=== PATIENT | female | born 1990 | race Caucasian/White ===

== ENCOUNTER 2016-07-03 13:59 | Outpatient (RCR) | payer MEDICAID ==
--- OUTSIDE RECORDS SUMMARY | 2016-04-05 14:08 | XMS REPORT | Continuity of Care Document ---
Author Author Interface Organization Interface Address Unknown Phone Unavailable Problems Problem Status Onset Date Classification Date Reported Comments Source Patient currently (finding) Active 06/21/2013 Problem 03/27/2014 [facility] Medications Medication Details Route Status Patient Instructions Ordering Provider Order Date Source albuterol HFA 90 mcg/inh inhalation aerosol Active [facility] Advair Diskus 250 mcg-50 mcg inhalation powder 1 puff , Inhaled, BID Active [facility] Flagyl 500 mg oral tablet 500 mg=1 tablet, PO, BID, x 7 day(s), # 14 tablet, Refill(s) 0, Pharmacy: [facility] #[id number] [facility] ferrous sulfate 325 mg (65 mg elemental iron) oral delayed release tablet 65 mg=1 tablet, PO, qDay, 325 mg/1 tablet=65 mg elemental iron., # 30 tablet, Refill(s) 0, Pharmacy: [facility] #[id number] </br>325 mg/1 tablet=65 mg elemental iron. Active [facility] oxyCODONE-acetaminophen 5 mg -325mg oral tablet =1 tablet, PO, q4hr, PRN PRN Pain, Moderate, # 24 tablet, Refill(s) 0, Print [facility] ibuprofen 800 mg oral tablet 800 mg=1 tablet, PO, q8hr , PRN Pain not responding to APAP, # 30 tablet, Refill(s) 2 [facility] Tdap 03/25/14 18:00:00 CDT, Send Med Request, Routine , 0.5 mL, IM, Injection, Unscheduled, 1 dose(s)Refrigerate. Shake well. For IM use. Boostrix is Tetanus/Diptheria/Acellular Pertussis. Patient Charge. Manufacturer MED ID: [id number] Inactive Smooth Tomas [facility] Allergies, Adverse Reactions, Alerts Substance Category Reaction Severity Reaction type Status Date Reported Comments Source acetaminophen-propoxyphene drug allergy Allergy Active [facility] ciprofloxacin drug allergy Stop Substance: Moderate Allergy Active [facility] Immunizations Immunization Date Given Site Status Last Updated Comments Source tetanus/diph/pertussis(a), adult (Tdap) 03/26/2014 completed [facility] Results Order Name Results Value Reference Range Date Interpretation Comments Source DIFA Abs Eos 0.01 x10(3) mcL 0.00 - 0.50 03/23/2014 [facility] DIFA Abs Baso 0.01 x10(3) mcL 0.00 - 0.10 03/23/2014 [facility] DIFA Differential Method Auto Diff 03/23/2014 [facility] RPR RPR Non-Reactive 03/25/2014 [facility] HGB 10.1 gm/dL 12.0 - 16.0 03/25/2014 LOW This test result is at significant variance with the most recent result. This may be due to a significant clinical change or pre-analytical error. If the clinical condition of the patient does not account for the variance, pre-analytic factors to consider include sample dilution or concentration associated with line draw, sample mislabeling, or mishandling. Consider repeat testing if clinically indicated.< br/> [facility] HCT 31.0 % 36.0 - 46.0 03/25/2014 [facility] BGO2 Stewart Sample Type Stewart Cord 03/24/2014 [facility] BGO2 Stewart pH Stewart 7.30 7.31 - 7.41 03/24/2014 [facility] BGO2 Stewart pCO2 Stewart 40.7 mmHg 40.0 - 60.0 03/24/2014 [facility] BGO2 Stewart pO2 Stewart 40 mmHg 26 - 55 03/24/2014 [facility] BGO2 Stewart HCO3 Stewart 20 mmol/L 03/24/2014 [facility] BGO2 Stewart TCO2 Stewart 20.7 mmHg 03/24/2014 [facility] BGO2 Stewart Base Excess Stewart - 5.9 mmol/L 03/24/2014 [facility] BGO2 Stewart Total HGB Stewart 10.1 gm/dL 03/24/2014 [facility]Met Sodium 138 mmol/L 135 - 145 03/23/2014 [facility] BGO2 Stewart HCT Stewart 31.3 % 03/24/2014 [facility] BGO2 Stewart Oxyhemoglobin Stewart 78.7 % 03/24/2014 [facility] BasMet Potassium 4.6 mmol/L 3.5 - 5.2 03/23/2014 [facility][note 3] BGO2 Stewart Deoxyhemoglobin Stewart 18.8 % 03/24/2014 [facility] Chloride 103 mmol/L 99 - 112 03/23/2014 [facility] BGO2 Stewart O2 Content Stewart 11.2 vol% 03/24/2014 [facility] Carbon Dioxide 24 mmol /L 20 - 30 03/23/2014 [facility] BGO2 Stewart O2 Sat Stewart 80.7 % 03/24/2014 [facility] Anion Gap 11 mmol/L 7 - 14 03/23/2014 [facility] BGO2 Stewart FIO2 Unknown 03/24/2014 [facility] Calcium 9.4 mg/dL 8.6 - 10.5 03/23/2014 [facility] BGO2 Stewart Patient Temperature 37.0 DegC 03/24/2014 [facility] Glucose 66 mg/dL 65 - 110 03/23/2014 [facility] BUN 6 mg/dL 5 - 20 03/23/2014 [facility] Creatinine .57 mg/dL .35 - .84 03/23/2014 [facility][note 3] BasMet Creatinine, Old Calibration 0.7 mg/dL 0.5 - 1.0 NA This creatinine value is a calculated value from the newly implemented IDMS calibration. It represents the value equivalent to what was previously reported by the laboratory.
[facility] BGO2 Art Sample Type Art Cord 03/24/2014 [facility] BGO2 Art pH Art 7.19 03/24/2014 [facility] BGO2 Art pCO2 Art 55.5 mmHg 03/24/2014 [facility] BGO2 Art pO2 Art <33 mmHg 03/24/2014 [facility] BGO2 Art HCO3 Art 20 mmHg 03/24/2014 [facility] BGO2 Art TCO2 Art 22 mmol/L 03/24/2014 [facility] BGO2 Art Base Excess Art - 7.7 mmol/L 03/24/2014 [facility] BGO2 Art O2 Part 1/2 Sat Art 26.8 mmHg 03/24/2014 [facility] BGO2 Art Pierre-Art O2 Tension Art 58.6 mmHg 03/24/2014 [facility] BGO2 Art Art/Pierre O2 Tension Art 28.7 % 03/24/2014 [facility] BGO2 Art Pierre O2 Tension Art 82.3 mmHg 03/24/2014 [facility] BGO2 Art Total HGB Art 11.4 gm/dL 03/24/2014 [facility] BGO2 Art HCT Art 35.0 % 03/24/2014 [facility] BGO2 Art Oxyhemoglobin Art 41.3 % 03/24/2014 [facility] BGO2 Art Deoxyhemoglobin Art 57.2 % 03/24/2014 [facility] BGO2 Art O2 Content Art 6.6 vol% 03/24/2014 [facility] BGO2 Art O2 Sat Art 41.9 % 03/24/2014 [facility] BGO2 Art FIO2 Unknown 03/24/2014 NA FIO2 value was not provided. Calculations reported assume the patient is on room air (RA).
[facility] BGO2 Art Patient Temperature 37.0 DegC 03/24/2014 [facility] CBCD WBC 5.61 x10(3) mcL 4.50 - 11.00 03/23/2014 [facility][note 3] CBCD RBC 5.01 x10(6) mcL 4.00 - 5.20 03/23/2014 [facility] CBCD HGB 14.3 gm/dL 12.0 - 16.0 03/23/2014 [facility] CBCD HCT 42.4 % 36.0 - 46.0 03/23/2014 [facility] CBCD MCV 84.6 fL 82.0 - 100.0 03/23/2014 [facility] CBCD MCH 28.5 pg 26.0 - 34.0 03/23/2014 [facility] CBCD MCHC 33.7 gm/dL 31.5 - 36.5 03/23/2014 [facility] CBCD RDW 13.0 % 11.5 - 14.5 03/23/2014 [facility] DIFA % Neutro 60.1 % 03/23/2014 [facility] CBCD Platelet 127 x10(3) mcL 150 - 450 03/23/2014 LOW [facility] CBCD MPV 10.8 fL 8.2 - 12.4 03/23/2014 [facility] DIFA % Imm Gran 0.4 % 03/23/2014 NA This number represents the sum of the metamyelocytes, myelocytes and promyelocytes.
[facility] DIFA % Lymph 33.9 % 03/23/2014 [facility] DIFA % Caroline 5.2 % 03/23/2014 [facility] DIFA % Eos 0.2 % 03/23/2014 [facility] DIFA % Baso 0.2 % 03/23/2014 [facility] DIFA Abs Neut 3.38 x10(3) mcL 1.80 - 7.00 03/23/2014 NA [facility] DIFA Abs Imm Gran 0.02 x10(3 ) mcL 0.00 - 0.04 03/23/2014 NA [facility] DIFA Abs Lymph 1.90 x10(3) mcL 1.20 - 4.00 03/23/2014 NA [facility] DIFA Abs Caroline 0.29 x10(3) mcL 0.10 - 0.80 03/23/2014 [facility] Parent NGS Parent NGS Genomics Case Created 03/10 NA This order is for collection purposes only. The Genomics case will be created seperately.
[facility] zdarianMojayne Gen Katharine Gen 03/09/2016 [facility] Final Report Final Report Blood DNA isolation/storage for future study. Lab use only. Electronically signed by: Karen Kessler 04/05/2016 09:22</br> 03/09/2016 Electronically signed by: Karen Kessler 04/05/2016 09:22 [facility] Vital Signs Vital Sign Value Date Comments Source Temperature Route Oral </br>(03/17/2014 13:56:00) <sup> </sup> 03/17/2014 [facility] Respiratory Rate 18 BR/min [facility] Heart Rate 75 bpm 03/17/2014 [facility] Height/Length 145 cm 2013 [facility] Temperature Celsius 36.6 [place] 03/17/2014 [facility] Systolic Blood Pressure Cuff Monitored 128 mm[Hg] 03/17/2014 [facility] Diastolic Blood Pressure Cuff Monitored 68 mm[Hg] 03/17/2014 [facility] Current Weight 63.2 kg 2013 [facility] Height/Length 145 cm 2013 [facility] Current Weight 67.7 kg 2013 [facility] Temperature Celsius 36.7 [place] 03/20/2014 [facility] Respiratory Rate 16 BR/min [facility] Temperature Celsius 36.5 [place] 03/26/2014 [facility] Temperature Route Core/Temporal </br>(03/25/2014 22:15:00) <sup> </sup> 03/26/2014 [facility] Respiratory Rate 20 BR/min [facility] Heart Rate 62 bpm 03/26/2014 [facility] Systolic Blood Pressure Cuff Monitored <content ID=' [id number]'>123</content>/<content ID='[id number]'>75</content> mm[Hg ] 03/26/2014 [facility] Heart Rate Monitored 72 bpm 03/25/2014 [facility] Temperature Celsius 36.5 [place] 03/25/2014 [facility] Temperature Route Core/Temporal </br>(03/25/2014 17:18:00) <sup> </sup> 03/25/2014 [facility] Respiratory Rate 18 BR/min [facility] Systolic Blood Pressure Cuff Monitored <content ID=' [id number]'>128</content>/<content ID='[id number]'>74</content> mm[Hg ] 03/25/2014 [facility] Systolic Blood Pressure Cuff Monitored <content ID=' [id number]'>112</content>/<content ID='[id number]'>80</content> mm[Hg ] 03/26/2014 [facility] Respiratory Rate 18 BR/min [facility] Heart Rate Monitored 77 bpm 03/26/2014 [facility] Temperature Route Core/Temporal </br>(03/26/2014 09:53:00) <sup> </sup> 03/26/2014 [facility] Temperature Celsius 36.3 [place] 03/26/2014 [facility] Heart Rate Monitored 77 bpm 03/25/2014 [facility] Current Weight 67.7 kg 2013 [facility] Height/Length 145 cm 2013 [facility] Encounters Location Location Details Encounter Type Encounter Number Reason For Visit Attending Provider ADM Date DC Date Status Source [facility] Non Billable [id number] 02/09/2014 02/09/2014 Active [facility] CLI [id number] Waqas Holland 03/02/2014 03/02/2014 Active [facility] [place] [id number] delivery Delgado BriggsHernandez 03/23/201403/26 Active [facility] REF [id number] Other Reason Waldokelsi Tarun 03/16/2014 03/16/2014 Active [facility] CLI [id number] labor check Yvette Saavedra 03/20/2014 03/20/2014 Active [facility] CLI [id number] BPP; ; dilated 3rd ventricle Waqas Holland 201303/23/2014 Active [facility] CLI [id number] SW/Genetics consult Jourdan Carbajal 03/17/2014 03/17/2014 Active [facility] REF [id number] Kendall Merritt 03/09/20162015 Active [facility] Procedures Procedure Code Date Perfomer Comments Source
[2016-04-05 14:37] LABS: BASOPHILS % (AUTO) 0 % (0-10); EOSINOPHILS # (AUTO) 0.1 10^3/uL (0.0-0.3); EOSINOPHILS % (AUTO) 2 % (0-10); LYMPHOCYTES # (AUTO) 1.3 X 10^3 (1.0-4.0); LYMPHOCYTES % (AUTO) 25 % (12-44); MEAN CORPUSCULAR HEMOGLOBIN 28 PG (25-34); MEAN CORPUSCULAR HGB CONC 34 G/DL (32-36); MEAN CORPUSCULAR VOLUME 83 FL (80-99); MEAN PLATELET VOLUME 9.3 FL (7.4-10.4); MONOCYTES # (AUTO) 0.3 X 10^3 (0.0-1.0); MONOCYTES % (AUTO) 6 % (0-12); NEUTROPHILS # (AUTO) 3.6 X 10^3 (1.8-7.8); NEUTROPHILS % (AUTO) 68 % (42-75); PLATELET COUNT 221 10^3/uL (130-400); RED BLOOD COUNT 5.01 10^6/uL (4.35-5.85); RED CELL DISTRIBUTION WIDTH 12.5 % (10.0-14.5); WHITE BLOOD COUNT 5.3 10^3/uL (4.3-11.0)
[2016-04-05 14:58] LABS: ALANINE AMINOTRANSFERASE 13 U/L (0-55); ALBUMIN 4.5 G/DL (3.2-4.5); ANION GAP 10 MMOL/L (5-14); ASPARTATE AMINO TRANSFERASE 16 U/L (5-34); BILIRUBIN,TOTAL 0.5 MG/DL (0.1-1.0); BLOOD UREA NITROGEN 11 MG/DL (7-18); BUN/CREATININE RATIO 14; CALCIUM 9.2 MG/DL (8.5-10.1); CARBON DIOXIDE 22 MMOL/L (21-32); CHLORIDE 108 MMOL/L (98-107); CREATININE SERUM 0.79 MG/DL (0.60-1.30); GFR ESTIMATED > 60; GLUCOSE 73 MG/DL (70-105); POTASSIUM 3.9 MMOL/L (3.6-5.0); SODIUM 140 MMOL/L (135-145); TOTAL PROTEIN 6.8 G/DL (6.4-8.2)
[2016-04-06 02:47] LABS: IMMUNOGLOBULIN IGA <2.0 (71-263); IMMUNOGLOBULIN IGG 890 mg/dL (672-1680)
[2016-04-06 07:06] LABS: IMMUNOGLOBULIN IGM <10 mg/dL (47-209)
[2016-05-03 09:31] LABS: BASOPHILS % (AUTO) 0 % (0-10); EOSINOPHILS # (AUTO) 0.1 10^3/uL (0.0-0.3); EOSINOPHILS % (AUTO) 2 % (0-10); LYMPHOCYTES % (AUTO) 17 % (12-44); MEAN CORPUSCULAR HEMOGLOBIN 28 PG (25-34); MEAN CORPUSCULAR HGB CONC 35 G/DL (32-36); MEAN CORPUSCULAR VOLUME 82 FL (80-99); MONOCYTES # (AUTO) 0.3 X 10^3 (0.0-1.0); MONOCYTES % (AUTO) 4 % (0-12); NEUTROPHILS # (AUTO) 4.4 X 10^3 (1.8-7.8); NEUTROPHILS % (AUTO) 76 % (42-75); PLATELET COUNT 216 10^3/uL (130-400); RED BLOOD COUNT 5.19 10^6/uL (4.35-5.85); WHITE BLOOD COUNT 5.8 10^3/uL (4.3-11.0)
[2016-05-03 10:26] LABS: ALANINE AMINOTRANSFERASE 15 U/L (0-55); ALBUMIN 4.5 G/DL (3.2-4.5); ANION GAP 10 MMOL/L (5-14); ASPARTATE AMINO TRANSFERASE 16 U/L (5-34); BILIRUBIN,TOTAL 0.3 MG/DL (0.1-1.0); BLOOD UREA NITROGEN 13 MG/DL (7-18); BUN/CREATININE RATIO 18; CARBON DIOXIDE 20 MMOL/L (21-32); CHLORIDE 108 MMOL/L (98-107); CREATININE SERUM 0.71 MG/DL (0.60-1.30); GFR ESTIMATED > 60; GLUCOSE 117 MG/DL (70-105); POTASSIUM 3.8 MMOL/L (3.6-5.0); SODIUM 138 MMOL/L (135-145); TOTAL PROTEIN 7.2 G/DL (6.4-8.2)
[2016-05-04 05:17] LABS: IMMUNOGLOBULIN IGA <2.0 (71-263); IMMUNOGLOBULIN IGG 1092 mg/dL (672-1680)
[2016-05-04 07:51] LABS: IMMUNOGLOBULIN IGM <10 mg/dL (47-209)
[2016-06-01 12:26] LABS: BASOPHILS % (AUTO) 0 % (0-10); EOSINOPHILS # (AUTO) 0.1 10^3/uL (0.0-0.3); EOSINOPHILS % (AUTO) 3 % (0-10); LYMPHOCYTES # (AUTO) 1.4 X 10^3 (1.0-4.0); LYMPHOCYTES % (AUTO) 28 % (12-44); MEAN CORPUSCULAR HEMOGLOBIN 28 PG (25-34); MEAN CORPUSCULAR HGB CONC 34 G/DL (32-36); MEAN CORPUSCULAR VOLUME 82 FL (80-99); MEAN PLATELET VOLUME 8.8 FL (7.4-10.4); MONOCYTES # (AUTO) 0.3 X 10^3 (0.0-1.0); MONOCYTES % (AUTO) 6 % (0-12); NEUTROPHILS # (AUTO) 3.1 X 10^3 (1.8-7.8); NEUTROPHILS % (AUTO) 63 % (42-75); PLATELET COUNT 221 10^3/uL (130-400); RED CELL DISTRIBUTION WIDTH 13.2 % (10.0-14.5); WHITE BLOOD COUNT 4.9 10^3/uL (4.3-11.0)
[2016-06-01 13:23] LABS: ALANINE AMINOTRANSFERASE 11 U/L (0-55); ALBUMIN 4.5 G/DL (3.2-4.5); ANION GAP 10 MMOL/L (5-14); ASPARTATE AMINO TRANSFERASE 17 U/L (5-34); BILIRUBIN,TOTAL 0.4 MG/DL (0.1-1.0); BLOOD UREA NITROGEN 12 MG/DL (7-18); BUN/CREATININE RATIO 16; CALCIUM 9.2 MG/DL (8.5-10.1); CARBON DIOXIDE 24 MMOL/L (21-32); CHLORIDE 106 MMOL/L (98-107); CREATININE SERUM 0.74 MG/DL (0.60-1.30); GFR ESTIMATED > 60; GLUCOSE 85 MG/DL (70-105); POTASSIUM 4.4 MMOL/L (3.6-5.0); SODIUM 140 MMOL/L (135-145); TOTAL PROTEIN 7.1 G/DL (6.4-8.2)
[2016-06-02 03:34] LABS: IMMUNOGLOBULIN IGA <2.0 (71-263); IMMUNOGLOBULIN IGG 1089 mg/dL (672-1680)
[2016-06-02 08:10] LABS: IMMUNOGLOBULIN IGM <10 mg/dL (47-209)
[~2016-07-03 13:59] MED LIST: ACETAMINOPHEN 500 MG TAB (TYLENOL) CANCER CTR PO PRN; ALBU17AE23 INH; AMOX500C2; CEPH-507 PO; DOCU100C37 PO; FLUT1DIS26 IH; FLX10C PO; FRS325T PO; HYDR-3816 PO; HYOS0.3710 PO; IBP600T1 PO; IBUP-1773 PO; IMMUNE GLOBULIN,GAMMA (IGG) 200 ML IV SCH; IMMUNOGLOBULIN; MAGN400C PO; METR500T PO; ONDA8TAB13 PO; ONDAN4ODT PO; OXYC-12 PO; OXYC-197 PO; POLY119P5 PO; POTASSIUM PO; PREN1TAB39; SIME80TA16 PO; [UNRECOGNIZED DRUG - OTHER]; [UNRECOGNIZED DRUG - OTHER] PO; [UNRECOGNIZED DRUG - OTHER] SQ; diphenhydrAMINE 25 MG TAB (BENADRYL) CANCER CENTER PO SCH
[2016-07-03 14:07] LABS: BASOPHILS % (AUTO) 1 % (0-10); EOSINOPHILS # (AUTO) 0.1 10^3/uL (0.0-0.3); EOSINOPHILS % (AUTO) 2 % (0-10); LYMPHOCYTES % (AUTO) 28 % (12-44); MEAN CORPUSCULAR HEMOGLOBIN 28 PG (25-34); MEAN CORPUSCULAR HGB CONC 34 G/DL (32-36); MEAN CORPUSCULAR VOLUME 82 FL (80-99); MEAN PLATELET VOLUME 8.8 FL (7.4-10.4); MONOCYTES # (AUTO) 0.2 X 10^3 (0.0-1.0); MONOCYTES % (AUTO) 6 % (0-12); NEUTROPHILS # (AUTO) 2.4 X 10^3 (1.8-7.8); NEUTROPHILS % (AUTO) 65 % (42-75); PLATELET COUNT 180 10^3/uL (130-400); RED CELL DISTRIBUTION WIDTH 13.2 % (10.0-14.5); WHITE BLOOD COUNT 3.7 10^3/uL (4.3-11.0)
[2016-07-03 14:41] LABS: ALANINE AMINOTRANSFERASE 12 U/L (0-55); ALBUMIN 4.4 G/DL (3.2-4.5); ANION GAP 8 MMOL/L (5-14); ASPARTATE AMINO TRANSFERASE 16 U/L (5-34); BILIRUBIN,TOTAL 0.4 MG/DL (0.1-1.0); BLOOD UREA NITROGEN 7 MG/DL (7-18); BUN/CREATININE RATIO 9; CALCIUM 8.8 MG/DL (8.5-10.1); CARBON DIOXIDE 25 MMOL/L (21-32); CHLORIDE 105 MMOL/L (98-107); CREATININE SERUM 0.78 MG/DL (0.60-1.30); GFR ESTIMATED > 60; GLUCOSE 86 MG/DL (70-105); POTASSIUM 3.9 MMOL/L (3.6-5.0); SODIUM 138 MMOL/L (135-145); TOTAL PROTEIN 6.7 G/DL (6.4-8.2)
[2016-07-04 06:31] LABS: IMMUNOGLOBULIN IGA <2.0 (71-263); IMMUNOGLOBULIN IGG 1008 mg/dL (672-1680)
[2016-07-04 08:10] LABS: IMMUNOGLOBULIN IGM <10 mg/dL (47-209)
== END 2016-07-04 | disposition home or self-care (01) ==
LOC: ONC 13:59
PROVIDERS: ATTEND Internal Medicine Hematology & Oncology
DX: D80.1 Nonfamilial hypogammaglobulinemia (principal); D50.9 Iron deficiency anemia, unspecified; Z79.899 Other long term (current) drug therapy
CPT/HCPCS: 36415; 80053; 82784; 85025; 96365; 96366; 99213

== ENCOUNTER 2016-09-28 10:18 | Outpatient (RCR) | payer MEDICAID ==
--- OUTSIDE RECORDS SUMMARY | 2016-07-06 10:24 | XMS REPORT | Continuity of Care Document ---
Author Author Interface Organization Interface Address Unknown Phone Unavailable Problems Problem Status Onset Date Classification Date Reported Comments Source Patient currently (finding) Active 06/21/2013 Problem 03/27/2014 [facility] Medications Medication Details Route Status Patient Instructions Ordering Provider Order Date Source albuterol HFA 90 mcg/inh inhalation aerosol Active [facility] Advair Diskus 250 mcg-50 mcg inhalation powder 1 puff , Inhaled, BID Active [facility] Flagyl 500 mg oral tablet 500 mg=1 tablet, PO, BID, x 7 day(s), # 14 tablet, Refill(s) 0, Pharmacy: [facility] #[id number] [facility] ferrous sulfate 325 mg (65 mg elemental iron) oral delayed release tablet 65 mg=1 tablet, PO, qDay, 325 mg/1 tablet=65 mg elemental iron., # 30 tablet, Refill(s) 0, Pharmacy: [facility] #[id number] </br>325 mg/1 tablet=65 mg elemental iron. Active [facility] oxyCODONE-acetaminophen 5 mg -325mg oral tablet =1 tablet, PO, q4hr, PRN PRN Pain, Moderate, # 24 tablet, Refill(s) 0, Print Requisition [facility] ibuprofen 800 mg oral tablet 800 mg=1 tablet, PO, q8hr , PRN Pain not responding to APAP, # 30 tablet, Refill(s) 2 [facility] Tdap 03/25/14 18:00:00 CDT, Send Med Request, Routine , 0.5 mL, IM, Injection, Unscheduled, 1 dose(s)Refrigerate. Shake well. For IM use. Boostrix is Tetanus/Diptheria/Acellular Pertussis. Patient Charge. Manufacturer MED ID: [id number] Inactive Smooth Tomas [facility] Allergies, Adverse Reactions, Alerts Substance Category Reaction Severity Reaction type Status Date Reported Comments Source acetaminophen-propoxyphene drug allergy Allergy Active [facility] ciprofloxacin drug allergy Stop Substance: Moderate Allergy Active [facility] Immunizations Immunization Date Given Site Status Last Updated Comments Source tetanus/diph/pertussis(a), adult (Tdap) 03/26/2014 completed [facility] Results Order Name Results Value Reference Range Date Interpretation Comments Source HGB 10.1 gm/dL 12.0 - 16.0 03/25/2014 [...] Consider repeat testing if clinically indicated.< br/> [facility] HH HCT 31.0 % 36.0 - 46.0 03/25/2014 [facility] BGO2 Stewart Sample Type Stewart Cord 03/24/2014 [facility] BGO2 Stewart pH Stewart 7.30 7.31 - 7.41 03/24/2014 [facility] BGO2 Stewart pCO2 Stewart 40.7 mmHg 40.0 - 60.0 03/24/2014 [facility] BGO2 Stewart pO2 Stewart 40 mmHg 26 - 55 03/24/2014 [facility] BGO2 Stewart HCO3 Stewart 20 mmol/L 03/24/2014 [facility] BGO2 Stewart TCO2 Stewart 20.7 mmHg 03/24/2014 [facility] BGO2 Stewart Base Excess Stewart - 5.9 mmol/L 03/24/2014 [facility] BGO2 Stewart Total HGB Stewart 10.1 gm/dL 03/24/2014 [facility] BGO2 Stewart HCT Stewart 31.3 % 03/24/2014 [facility] BGO2 Stewart Oxyhemoglobin Stewart 78.7 % 03/24/2014 [facility] BGO2 Stewart Deoxyhemoglobin Stewart 18.8 % 03/24/2014 [facility] BGO2 Stewart O2 Content Stewart 11.2 vol% 03/24/2014 [facility] BGO2 Stewart O2 Sat Stewart 80.7 % 03/24/2014 [facility] BGO2 Stewart FIO2 Unknown 03/24/2014 [facility] BGO2 Stewart Patient Temperature 37.0 DegC 03/24/2014 [facility] BGO2 Art Sample Type Art Cord 03/24/2014 [facility] BGO2 Art pH Art 7.19 03/24/2014 [facility] BGO2 Art pCO2 Art 55.5 mmHg 03/24/2014 [facility] BGO2 Art pO2 Art <33 mmHg 03/24/2014 [facility] BGO2 Art HCO3 Art 20 mmHg 03/24/2014 [facility] BGO2 Art TCO2 Art 22 mmol/L 03/24/2014 [facility] BGO2 Art Base Excess Art - 7.7 mmol/L 03/24/2014 [facility] BGO2 Art O2 Part 1/2 Sat Art 26.8 mmHg 03/24/2014 [facility] BGO2 Art Pierre-Art O2 Tension Art 58.6 mmHg 03/24/2014 [facility] BGO2 Art Art/Pierre O2 Tension Art 28.7 % 03/24/2014 [facility] BGO2 Art Pierre O2 Tension Art 82.3 mmHg 03/24/2014 [facility]Met Sodium 138 mmol/L 135 - 145 03/23/2014 [facility] BGO2 Art Total HGB Art 11.4 gm/dL 03/24/2014 [facility] BGO2 Art HCT Art 35.0 % 03/24/2014 [facility] Potassium 4.6 mmol/L 3.5 - 5.2 03/23/2014 [facility] BGO2 Art Oxyhemoglobin Art 41.3 % 03/24/2014 [facility] Chloride 103 mmol/L 99 - 112 03/23/2014 [facility] BGO2 Art Deoxyhemoglobin Art 57.2 % 03/24/2014 [facility] Carbon Dioxide 24 mmol /L 20 - 30 03/23/2014 [facility] Anion Gap 11 mmol/L 7 - 14 03/23/2014 [facility] BGO2 Art O2 Content Art 6.6 vol% 03/24/2014 [facility] Calcium 9.4 mg/dL 8.6 - 10.5 03/23/2014 [facility] BGO2 Art O2 Sat Art 41.9 % 03/24/2014 [facility] Glucose 66 mg/dL 65 - 110 03/23/2014 [facility] BGO2 Art FIO2 Unknown 03/24/2014 NA FIO2 value was not provided. Calculations reported assume the patient is on room air (RA).
[facility]Met BUN 6 mg/dL 5 - 20 03/23/2014 [facility] BGO2 Art Patient Temperature 37.0 DegC 03/24/2014 [facility] Creatinine .57 mg/dL .35 - .84 03/23/2014 [facility]Met Creatinine, Old Calibration 0.7 mg/dL 0.5 - 1.0 NA This creatinine value is a calculated value from the newly implemented IDMS calibration. It represents the value equivalent to what was previously reported by the laboratory.
[facility] DIFA % Neutro 60.1 % 03/23/2014 [facility] DIFA % Imm Gran 0.4 % 03/23/2014 NA This number represents the sum of the metamyelocytes, myelocytes and promyelocytes.
[facility] DIFA % Lymph 33.9 % 03/23/2014 [facility] DIFA % Wilson 5.2 % 03/23/2014 [facility] DIFA % Eos 0.2 % 03/23/2014 [facility] DIFA % Baso 0.2 % 03/23/2014 [facility] DIFA Abs Neut 3.38 x10(3) mcL 1.80 - 7.00 03/23/2014 [facility] DIFA Abs Imm Gran 0.02 x10(3 ) mcL 0.00 - 0.04 03/23/2014 [facility] DIFA Abs Lymph 1.90 x10(3) mcL 1.20 - 4.00 03/23/2014 [facility] DIFA Abs Wilson 0.29 x10(3) mcL 0.10 - 0.80 03/23/2014 [facility] DIFA Abs Eos 0.01 x10(3) mcL 0.00 - 0.50 03/23/2014 [facility] DIFA Abs Baso 0.01 x10(3) mcL 0.00 - 0.10 03/23/2014 [facility] DIFA Differential Method Auto Diff 03/23/2014 [facility] CBCD WBC 5.61 x10(3) mcL 4.50 - 11.00 03/23/2014 [facility] CBCD RBC 5.01 x10(6) mcL 4.00 - 5.20 03/23/2014 [facility] CBCD HGB 14.3 gm/dL 12.0 - 16.0 03/23/2014 [facility] CBCD HCT 42.4 % 36.0 - 46.0 03/23/2014 [facility] CBCD MCV 84.6 fL 82.0 - 100.0 03/23/2014 [facility] CBCD MCH 28.5 pg 26.0 - 34.0 03/23/2014 [facility] CBCD MCHC 33.7 gm/dL 31.5 - 36.5 03/23/2014 NA [facility] CBCD RDW 13.0 % 11.5 - 14.5 03/23/2014 NA [facility] CBCD Platelet 127 x10(3) mcL 150 - 450 03/23/2014 LOW [facility] CBCD MPV 10.8 fL 8.2 - 12.4 03/23/2014 [facility] RPR RPR Non-Reactive 03/25/2014 [facility] Parent NGS Parent NGS Genomics Case Created 03/10 NA This order is for collection purposes only. The Genomics case will be created seperately.
[facility] yolyMojayne Gen Katharine Gen 03/09/2016 [facility] Final Report Final Report Blood DNA isolation/storage for future study. Lab use only. Electronically signed by: Karen Kessler 04/05/2016 09:22</br> 03/09/2016 Electronically signed by: Karen Kessler 04/05/2016 09:22 [facility] Vital Signs Vital Sign Value Date Comments Source Temperature Route Oral </br>(03/17/2014 13:56:00) <sup> </sup> 03/17/2014 [facility] Respiratory Rate 18 BR/min [facility] Heart Rate 75 bpm 03/17/2014 [facility] Height/Length 145 cm 2013 [facility] Temperature Celsius 36.6 [place] 03/17/2014 [facility] Systolic Blood Pressure Cuff Monitored 128 mm[Hg] 03/17/2014 [facility] Diastolic Blood Pressure Cuff Monitored 68 mm[Hg] 03/17/2014 [facility] Current Weight 63.2 kg 2013 [facility] Height/Length 145 cm 2013 [facility] Current Weight 67.7 kg 2013 [facility] Temperature Celsius 36.7 [place] 03/20/2014 [facility] Respiratory Rate 16 BR/min [facility] Temperature Celsius 36.5 [place] 03/26/2014 [facility] Temperature Route Core/Temporal </br>(03/25/2014 22:15:00) <sup> </sup> 03/26/2014 [facility] Respiratory Rate 20 BR/min [facility] Heart Rate 62 bpm 03/26/2014 [facility] Systolic Blood Pressure Cuff Monitored <content ID=' [id number]'>123</content>/<content ID='[id number]'>75</content> mm[Hg ] 03/26/2014 [facility] Heart Rate Monitored 72 bpm 03/25/2014 [facility] Temperature Celsius 36.5 [place] 03/25/2014 [facility] Temperature Route Core/Temporal </br>(03/25/2014 17:18:00) <sup> </sup> 03/25/2014 [facility] Respiratory Rate 18 BR/min [facility] Systolic Blood Pressure Cuff Monitored <content ID=' [id number]'>128</content>/<content ID='[id number]'>74</content> mm[Hg ] 03/25/2014 [facility] Systolic Blood Pressure Cuff Monitored <content ID=' [id number]'>112</content>/<content ID='[id number]'>80</content> mm[Hg ] 03/26/2014 [facility] Respiratory Rate 18 BR/min [facility] Heart Rate Monitored 77 bpm 03/26/2014 [facility] Temperature Route Core/Temporal </br>(03/26/2014 09:53:00) <sup> </sup> 03/26/2014 [facility] Temperature Celsius 36.3 [place] 03/26/2014 [facility] Heart Rate Monitored 77 bpm 03/25/2014 [facility] Current Weight 67.7 kg 2013 [facility] Height/Length 145 cm 2013 [facility] Encounters Location Location Details Encounter Type Encounter Number Reason For Visit Attending Provider ADM Date DC Date Status Source [facility] Non Billable [id number] 02/09/2014 02/09/2014 Active [facility] CLI [id number] Waqas Holland 03/02/2014 03/02/2014 Active [facility] [place] [id number] delivery Delgado BriggsHernandez 03/23/201403/[address] [facility] REF [id number] Other Reason Waldokelsi Tarun 03/16/2014 03/16/2014 Active [facility] CLI [id number] labor check Yvette Saavedra 03/20/2014 03/20/2014 Active [facility] CLI [id number] BPP; ; dilated 3rd ventricle Waqas Holland 201303/23/2014 Active [facility] CLI [id number] SW/Genetics consult Jourdan Carbajal 03/17/2014 03/17/2014 Active [facility] REF [id number] Kendall Merritt 03/09/20162015 Active [facility] Procedures Procedure Code Date Perfomer Comments Source
[2016-08-03 13:26] LABS: BASOPHILS % (AUTO) 0 % (0-10); EOSINOPHILS # (AUTO) 0.1 10^3/uL (0.0-0.3); EOSINOPHILS % (AUTO) 2 % (0-10); LYMPHOCYTES # (AUTO) 1.3 X 10^3 (1.0-4.0); LYMPHOCYTES % (AUTO) 26 % (12-44); MEAN CORPUSCULAR HEMOGLOBIN 28 PG (25-34); MEAN CORPUSCULAR HGB CONC 35 G/DL (32-36); MEAN CORPUSCULAR VOLUME 81 FL (80-99); MEAN PLATELET VOLUME 9.4 FL (7.4-10.4); MONOCYTES # (AUTO) 0.3 X 10^3 (0.0-1.0); MONOCYTES % (AUTO) 6 % (0-12); NEUTROPHILS # (AUTO) 3.4 X 10^3 (1.8-7.8); NEUTROPHILS % (AUTO) 67 % (42-75); PLATELET COUNT 183 10^3/uL (130-400); RED BLOOD COUNT 5.14 10^6/uL (4.35-5.85); RED CELL DISTRIBUTION WIDTH 12.9 % (10.0-14.5); WHITE BLOOD COUNT 5.1 10^3/uL (4.3-11.0)
[2016-08-03 13:44] LABS: ALANINE AMINOTRANSFERASE 12 U/L (0-55); ALBUMIN 4.6 G/DL (3.2-4.5); ANION GAP 7 MMOL/L (5-14); ASPARTATE AMINO TRANSFERASE 16 U/L (5-34); BILIRUBIN,TOTAL 0.4 MG/DL (0.1-1.0); BLOOD UREA NITROGEN 16 MG/DL (7-18); BUN/CREATININE RATIO 23; CARBON DIOXIDE 23 MMOL/L (21-32); CHLORIDE 108 MMOL/L (98-107); GFR ESTIMATED > 60; GLUCOSE 86 MG/DL (70-105); POTASSIUM 3.9 MMOL/L (3.6-5.0); SODIUM 138 MMOL/L (135-145)
[2016-08-04 04:35] LABS: IMMUNOGLOBULIN IGA <2.0 (71-263); IMMUNOGLOBULIN IGG 1019 mg/dL (672-1680)
[2016-08-04 09:25] LABS: IMMUNOGLOBULIN IGM <10 mg/dL (47-209)
[2016-08-28 12:23] LABS: BASOPHILS % (AUTO) 0 % (0-10); EOSINOPHILS # (AUTO) 0.1 10^3/uL (0.0-0.3); EOSINOPHILS % (AUTO) 2 % (0-10); LYMPHOCYTES # (AUTO) 1.1 X 10^3 (1.0-4.0); LYMPHOCYTES % (AUTO) 24 % (12-44); MEAN CORPUSCULAR HEMOGLOBIN 28 PG (25-34); MEAN CORPUSCULAR HGB CONC 34 G/DL (32-36); MEAN CORPUSCULAR VOLUME 82 FL (80-99); MEAN PLATELET VOLUME 8.8 FL (7.4-10.4); MONOCYTES # (AUTO) 0.3 X 10^3 (0.0-1.0); MONOCYTES % (AUTO) 7 % (0-12); NEUTROPHILS % (AUTO) 67 % (42-75); PLATELET COUNT 197 10^3/uL (130-400); RED BLOOD COUNT 5.08 10^6/uL (4.35-5.85); RED CELL DISTRIBUTION WIDTH 13.3 % (10.0-14.5); WHITE BLOOD COUNT 4.5 10^3/uL (4.3-11.0)
[2016-08-28 13:48] LABS: ALANINE AMINOTRANSFERASE 12 U/L (0-55); ALBUMIN 4.3 G/DL (3.2-4.5); ANION GAP 9 MMOL/L (5-14); ASPARTATE AMINO TRANSFERASE 18 U/L (5-34); BILIRUBIN,TOTAL 0.4 MG/DL (0.1-1.0); BLOOD UREA NITROGEN 13 MG/DL (7-18); BUN/CREATININE RATIO 16; CALCIUM 8.9 MG/DL (8.5-10.1); CARBON DIOXIDE 23 MMOL/L (21-32); CHLORIDE 107 MMOL/L (98-107); GFR ESTIMATED > 60; GLUCOSE 88 MG/DL (70-105); POTASSIUM 3.9 MMOL/L (3.6-5.0); SODIUM 139 MMOL/L (135-145); TOTAL PROTEIN 6.8 G/DL (6.4-8.2)
[2016-08-29 04:48] LABS: IMMUNOGLOBULIN IGA <2.0 (71-263); IMMUNOGLOBULIN IGG 1009 mg/dL (672-1680)
[2016-08-29 12:15] LABS: IMMUNOGLOBULIN IGM <10 mg/dL (47-209)
[2016-09-28] MEDS ORDERED: IMMUNE GLOBULIN,GAMMA (IGG) 200 ML IV SCH (11:00)
[2016-09-28] MEDS ORDERED: IMMU GLOBULIN,GAMMA (IGG) 100 ML IV SCH (11:00)
[2016-09-28] MEDS ORDERED: IMMU GLOBULIN,GAMMA (IGG) 50 ML IV SCH (11:00)
== END 2016-10-04 | disposition home or self-care (01) ==
LOC: ONC 10:18
PROVIDERS: ATTEND Internal Medicine Hematology & Oncology
DX: D80.1 Nonfamilial hypogammaglobulinemia (principal); D50.9 Iron deficiency anemia, unspecified; Z79.899 Other long term (current) drug therapy
CPT/HCPCS: 36415; 80053; 82784; 85025; 96365; 96366; 99213

== ENCOUNTER 2017-01-17 10:59 | Outpatient (RCR) | payer MEDICAID ==
[2016-10-23 12:33] LABS: BASOPHILS % (AUTO) 0 % (0-10); EOSINOPHILS # (AUTO) 0.1 10^3/uL (0.0-0.3); EOSINOPHILS % (AUTO) 2 % (0-10); LYMPHOCYTES # (AUTO) 1.1 X 10^3 (1.0-4.0); LYMPHOCYTES % (AUTO) 23 % (12-44); MEAN CORPUSCULAR HEMOGLOBIN 28 PG (25-34); MEAN CORPUSCULAR HGB CONC 34 G/DL (32-36); MEAN CORPUSCULAR VOLUME 82 FL (80-99); MEAN PLATELET VOLUME 9.3 FL (7.4-10.4); MONOCYTES # (AUTO) 0.3 X 10^3 (0.0-1.0); MONOCYTES % (AUTO) 6 % (0-12); NEUTROPHILS # (AUTO) 3.2 X 10^3 (1.8-7.8); NEUTROPHILS % (AUTO) 69 % (42-75); PLATELET COUNT 195 10^3/uL (130-400); RED BLOOD COUNT 5.26 10^6/uL (4.35-5.85); RED CELL DISTRIBUTION WIDTH 13.2 % (10.0-14.5); WHITE BLOOD COUNT 4.7 10^3/uL (4.3-11.0)
[2016-10-23 12:52] LABS: ALANINE AMINOTRANSFERASE 13 U/L (0-55); ALBUMIN 4.5 G/DL (3.2-4.5); ANION GAP 8 MMOL/L (5-14); ASPARTATE AMINO TRANSFERASE 17 U/L (5-34); BILIRUBIN,TOTAL 0.6 MG/DL (0.1-1.0); BLOOD UREA NITROGEN 8 MG/DL (7-18); BUN/CREATININE RATIO 10; CALCIUM 9.2 MG/DL (8.5-10.1); CARBON DIOXIDE 26 MMOL/L (21-32); CHLORIDE 106 MMOL/L (98-107); CREATININE SERUM 0.77 MG/DL (0.60-1.30); GFR ESTIMATED > 60; GLUCOSE 80 MG/DL (70-105); POTASSIUM 3.8 MMOL/L (3.6-5.0); SODIUM 140 MMOL/L (135-145); TOTAL PROTEIN 7.1 G/DL (6.4-8.2)
[2016-10-24 04:32] LABS: IMMUNOGLOBULIN IGA <2.0 (71-263); IMMUNOGLOBULIN IGG 1012 mg/dL (672-1680)
[2016-10-24 07:34] LABS: IMMUNOGLOBULIN IGM <10 mg/dL (47-209)
[2016-11-22 13:19] LABS: BASOPHILS % (AUTO) 1 % (0-10); EOSINOPHILS # (AUTO) 0.1 10^3/uL (0.0-0.3); EOSINOPHILS % (AUTO) 2 % (0-10); LYMPHOCYTES # (AUTO) 1.1 X 10^3 (1.0-4.0); LYMPHOCYTES % (AUTO) 25 % (12-44); MEAN CORPUSCULAR HEMOGLOBIN 28 PG (25-34); MEAN CORPUSCULAR HGB CONC 35 G/DL (32-36); MEAN CORPUSCULAR VOLUME 82 FL (80-99); MEAN PLATELET VOLUME 8.8 FL (7.4-10.4); MONOCYTES # (AUTO) 0.3 X 10^3 (0.0-1.0); MONOCYTES % (AUTO) 6 % (0-12); NEUTROPHILS % (AUTO) 67 % (42-75); PLATELET COUNT 195 10^3/uL (130-400); RED BLOOD COUNT 4.84 10^6/uL (4.35-5.85); RED CELL DISTRIBUTION WIDTH 13.4 % (10.0-14.5); WHITE BLOOD COUNT 4.4 10^3/uL (4.3-11.0)
[2016-11-22 13:48] LABS: ALANINE AMINOTRANSFERASE 9 U/L (0-55); ALBUMIN 4.4 G/DL (3.2-4.5); ANION GAP 9 MMOL/L (5-14); ASPARTATE AMINO TRANSFERASE 15 U/L (5-34); BILIRUBIN,TOTAL 0.4 MG/DL (0.1-1.0); BLOOD UREA NITROGEN 11 MG/DL (7-18); BUN/CREATININE RATIO 15; CALCIUM 8.9 MG/DL (8.5-10.1); CARBON DIOXIDE 23 MMOL/L (21-32); CHLORIDE 108 MMOL/L (98-107); CREATININE SERUM 0.72 MG/DL (0.60-1.30); GFR ESTIMATED > 60; GLUCOSE 85 MG/DL (70-105); POTASSIUM 4.1 MMOL/L (3.6-5.0); SODIUM 140 MMOL/L (135-145); TOTAL PROTEIN 6.6 G/DL (6.4-8.2)
[2016-11-23 06:51] LABS: IMMUNOGLOBULIN IGA <2.0 (71-263); IMMUNOGLOBULIN IGG 827 mg/dL (672-1680)
[2016-11-23 07:40] LABS: IMMUNOGLOBULIN IGM <10 mg/dL (47-209)
[2016-12-20 13:11] LABS: BASOPHILS % (AUTO) 0 % (0-10); EOSINOPHILS # (AUTO) 0.1 10^3/uL (0.0-0.3); EOSINOPHILS % (AUTO) 2 % (0-10); LYMPHOCYTES # (AUTO) 1.2 X 10^3 (1.0-4.0); LYMPHOCYTES % (AUTO) 27 % (12-44); MEAN CORPUSCULAR HEMOGLOBIN 29 PG (25-34); MEAN CORPUSCULAR HGB CONC 35 G/DL (32-36); MEAN CORPUSCULAR VOLUME 82 FL (80-99); MEAN PLATELET VOLUME 9.2 FL (7.4-10.4); MONOCYTES # (AUTO) 0.3 X 10^3 (0.0-1.0); MONOCYTES % (AUTO) 7 % (0-12); NEUTROPHILS # (AUTO) 2.9 X 10^3 (1.8-7.8); NEUTROPHILS % (AUTO) 64 % (42-75); PLATELET COUNT 180 10^3/uL (130-400); RED BLOOD COUNT 4.77 10^6/uL (4.35-5.85); RED CELL DISTRIBUTION WIDTH 13.3 % (10.0-14.5); WHITE BLOOD COUNT 4.5 10^3/uL (4.3-11.0)
[2016-12-20 13:45] LABS: ALANINE AMINOTRANSFERASE 13 U/L (0-55); ALBUMIN 4.2 GM/DL (3.2-4.5); ANION GAP 9 MMOL/L (5-14); ASPARTATE AMINO TRANSFERASE 18 U/L (5-34); BILIRUBIN,TOTAL 0.6 MG/DL (0.1-1.0); BLOOD UREA NITROGEN 8 MG/DL (7-18); BUN/CREATININE RATIO 11; CALCIUM 9.3 MG/DL (8.5-10.1); CARBON DIOXIDE 22 MMOL/L (21-32); CHLORIDE 109 MMOL/L (98-107); CREATININE SERUM 0.72 MG/DL (0.60-1.30); GFR ESTIMATED > 60; GLUCOSE 90 MG/DL (70-105); HEMOLYSIS 12 (-100-29); ICTERUS 0.5 (-100-1.9); LIPEMIA -1 (-100-49); POTASSIUM 3.7 MMOL/L (3.6-5.0); SODIUM 140 MMOL/L (135-145); TOTAL PROTEIN 6.8 GM/DL (6.4-8.2)
[2016-12-21 02:51] LABS: IMMUNOGLOBULIN IGA <2.0 (71-263); IMMUNOGLOBULIN IGG 799 mg/dL (672-1680)
[2016-12-21 07:11] LABS: IMMUNOGLOBULIN IGM <10 mg/dL (47-209)
[2017-01-12 15:53] LABS: BASOPHILS % (AUTO) 0 % (0-10); EOSINOPHILS # (AUTO) 0.1 10^3/uL (0.0-0.3); EOSINOPHILS % (AUTO) 1 % (0-10); LYMPHOCYTES # (AUTO) 1.1 X 10^3 (1.0-4.0); LYMPHOCYTES % (AUTO) 23 % (12-44); MEAN CORPUSCULAR HEMOGLOBIN 28 PG (25-34); MEAN CORPUSCULAR HGB CONC 34 G/DL (32-36); MEAN CORPUSCULAR VOLUME 82 FL (80-99); MEAN PLATELET VOLUME 8.9 FL (7.4-10.4); MONOCYTES # (AUTO) 0.2 X 10^3 (0.0-1.0); MONOCYTES % (AUTO) 5 % (0-12); NEUTROPHILS # (AUTO) 3.6 X 10^3 (1.8-7.8); NEUTROPHILS % (AUTO) 71 % (42-75); PLATELET COUNT 206 10^3/uL (130-400); RED BLOOD COUNT 4.71 10^6/uL (4.35-5.85); RED CELL DISTRIBUTION WIDTH 13.3 % (10.0-14.5); WHITE BLOOD COUNT 5.1 10^3/uL (4.3-11.0)
[2017-01-12 16:15] LABS: ALANINE AMINOTRANSFERASE 12 U/L (0-55); ALBUMIN 4.2 GM/DL (3.2-4.5); ANION GAP 12 MMOL/L (5-14); ASPARTATE AMINO TRANSFERASE 14 U/L (5-34); BILIRUBIN,TOTAL 0.4 MG/DL (0.1-1.0); BLOOD UREA NITROGEN 10 MG/DL (7-18); BUN/CREATININE RATIO 14; CALCIUM 8.5 MG/DL (8.5-10.1); CARBON DIOXIDE 21 MMOL/L (21-32); CHLORIDE 110 MMOL/L (98-107); CREATININE SERUM 0.71 MG/DL (0.60-1.30); GFR ESTIMATED > 60; GLUCOSE 115 MG/DL (70-105); POTASSIUM 3.4 MMOL/L (3.6-5.0); SODIUM 143 MMOL/L (135-145); TOTAL PROTEIN 6.6 GM/DL (6.4-8.2)
[2017-01-13 04:22] LABS: IMMUNOGLOBULIN IGA <2.0 (71-263); IMMUNOGLOBULIN IGG 857 mg/dL (672-1680)
[2017-01-15 07:48] LABS: IMMUNOGLOBULIN IGM 17 mg/dL (47-209)
[~2017-01-17 10:59] MED LIST changes: +ACETAMINOPHEN 500 MG TAB (TYLENOL) CANCER CTR PO PRN; +IMMU GLOBULIN,GAMMA (IGG) 100 ML IV SCH; +IMMU GLOBULIN,GAMMA (IGG) 50 ML IV SCH; +IMMUNE GLOBULIN,GAMMA (IGG) 200 ML IV SCH; +diphenhydrAMINE 25 MG TAB (BENADRYL) CANCER CENTER PO SCH
== END 2017-01-21 | disposition home or self-care (01) ==
LOC: ONC 10:59
PROVIDERS: ATTEND Internal Medicine Hematology & Oncology
DX: D80.1 Nonfamilial hypogammaglobulinemia (principal); D50.9 Iron deficiency anemia, unspecified; Z79.899 Other long term (current) drug therapy
CPT/HCPCS: 36415; 80053; 82784; 85025; 96365; 96366; 99213

== ENCOUNTER → 2017-01-17 | Outpatient (CLI) | payer MEDICAID ==
[~2017-01-17] MED LIST changes: -ACETAMINOPHEN 500 MG TAB (TYLENOL) CANCER CTR PO PRN; -IMMUNE GLOBULIN,GAMMA (IGG) 200 ML IV SCH; -diphenhydrAMINE 25 MG TAB (BENADRYL) CANCER CENTER PO SCH
== END ==
LOC: LAB 12:05
PROVIDERS: ATTEND Internal Medicine Gastroenterology
DX: R19.7 Diarrhea, unspecified (principal); R10.9 Unspecified abdominal pain
CPT/HCPCS: 36415; 82710

== ENCOUNTER 2017-03-20 10:11 | Outpatient (RCR) | payer MEDICAID ==
[2017-02-13 11:44] LABS: BASOPHILS % (AUTO) 0 % (0-10); EOSINOPHILS # (AUTO) 0.1 10^3/uL (0.0-0.3); EOSINOPHILS % (AUTO) 1 % (0-10); LYMPHOCYTES # (AUTO) 1.1 X 10^3 (1.0-4.0); LYMPHOCYTES % (AUTO) 19 % (12-44); MEAN CORPUSCULAR HEMOGLOBIN 28 PG (25-34); MEAN CORPUSCULAR HGB CONC 35 G/DL (32-36); MEAN CORPUSCULAR VOLUME 81 FL (80-99); MEAN PLATELET VOLUME 9.3 FL (7.4-10.4); MONOCYTES # (AUTO) 0.3 X 10^3 (0.0-1.0); MONOCYTES % (AUTO) 5 % (0-12); NEUTROPHILS # (AUTO) 4.2 X 10^3 (1.8-7.8); NEUTROPHILS % (AUTO) 75 % (42-75); PLATELET COUNT 191 10^3/uL (130-400); RED CELL DISTRIBUTION WIDTH 12.8 % (10.0-14.5); WHITE BLOOD COUNT 5.7 10^3/uL (4.3-11.0)
[2017-02-13 12:20] LABS: ALANINE AMINOTRANSFERASE 10 U/L (0-55); ALBUMIN 4.4 GM/DL (3.2-4.5); ANION GAP 11 MMOL/L (5-14); ASPARTATE AMINO TRANSFERASE 19 U/L (5-34); BILIRUBIN,TOTAL 0.5 MG/DL (0.1-1.0); BLOOD UREA NITROGEN 9 MG/DL (7-18); BUN/CREATININE RATIO 13; CALCIUM 9.4 MG/DL (8.5-10.1); CARBON DIOXIDE 21 MMOL/L (21-32); CHLORIDE 107 MMOL/L (98-107); CREATININE SERUM 0.67 MG/DL (0.60-1.30); GFR ESTIMATED > 60; GLUCOSE 90 MG/DL (70-105); SODIUM 139 MMOL/L (135-145); TOTAL PROTEIN 7.1 GM/DL (6.4-8.2)
[2017-02-14 00:19] LABS: IMMUNOGLOBULIN IGA <2.0 (71-263); IMMUNOGLOBULIN IGG 846 mg/dL (672-1680)
[2017-02-14 08:16] LABS: IMMUNOGLOBULIN IGM 21 mg/dL (47-209)
[~2017-03-20 10:11] MED LIST changes: -IMMU GLOBULIN,GAMMA (IGG) 100 ML IV SCH
== END 2017-03-24 | disposition home or self-care (01) ==
LOC: ONC 10:11
PROVIDERS: ATTEND Internal Medicine Hematology & Oncology
DX: D80.1 Nonfamilial hypogammaglobulinemia (principal); D50.9 Iron deficiency anemia, unspecified; Z79.899 Other long term (current) drug therapy
CPT/HCPCS: 36415; 80053; 82784; 85025; 96365; 96366; 99213

== ENCOUNTER 2017-06-26 08:44 | Outpatient (RCR) | payer MEDICAID | END 2017-07-16 | disposition home or self-care (01) | LOC: ONC 08:44 | PROVIDERS: ATTEND Internal Medicine Hematology & Oncology | DX: D80.1 Nonfamilial hypogammaglobulinemia (principal); D50.9 Iron deficiency anemia, unspecified; Z79.899 Other long term (current) drug therapy | CPT/HCPCS: 96365; 96366 ==

== ENCOUNTER 2018-03-06 13:04 | Outpatient (RCR) | payer MEDICAID ==
[~2018-03-06 13:04] MED LIST changes: +HYDR-34 PO; -HYDR-3816 PO; -OXYC-197 PO; +OXYC1TAB87 PO
[2018-03-06 13:20] LABS: BASOPHILS % (AUTO) 0 % (0-10); EOSINOPHILS # (AUTO) 0.1 10^3/uL (0.0-0.3); EOSINOPHILS % (AUTO) 2 % (0-10); HEMATOCRIT 41 % (35-52); HEMOGLOBIN 13.8 G/DL (11.5-16.0); LYMPHOCYTES # (AUTO) 1.1 X 10^3 (1.0-4.0); LYMPHOCYTES % (AUTO) 23 % (12-44); MEAN CORPUSCULAR HEMOGLOBIN 28 PG (25-34); MEAN CORPUSCULAR HGB CONC 34 G/DL (32-36); MEAN CORPUSCULAR VOLUME 81 FL (80-99); MEAN PLATELET VOLUME 8.7 FL (7.4-10.4); MONOCYTES # (AUTO) 0.5 X 10^3 (0.0-1.0); MONOCYTES % (AUTO) 10 % (0-12); NEUTROPHILS # (AUTO) 3.1 X 10^3 (1.8-7.8); NEUTROPHILS % (AUTO) 65 % (42-75); PLATELET COUNT 214 10^3/uL (130-400); RED BLOOD COUNT 5.02 10^6/uL (4.35-5.85); RED CELL DISTRIBUTION WIDTH 14.1 % (10.0-14.5); WHITE BLOOD COUNT 4.9 10^3/uL (4.3-11.0)
[2018-03-06 13:37] LABS: ALANINE AMINOTRANSFERASE 18 U/L (0-55); ALBUMIN 3.7 GM/DL (3.2-4.5); ALKALINE PHOSPHATASE 97 U/L (40-136); BILIRUBIN,TOTAL 0.3 MG/DL (0.1-1.0); BUN/CREATININE RATIO 8; CALCIUM 8.5 MG/DL (8.5-10.1); CARBON DIOXIDE 20 MMOL/L (21-32); CHLORIDE 107 MMOL/L (98-107); CREATININE SERUM 0.63 MG/DL (0.60-1.30); GFR ESTIMATED > 60; GLUCOSE 94 MG/DL (70-105); POTASSIUM 3.2 MMOL/L (3.6-5.0); SODIUM 138 MMOL/L (135-145); TOTAL PROTEIN 5.6 GM/DL (6.4-8.2)
== END 2018-03-24 | disposition home or self-care (01) ==
LOC: ONC 13:04
PROVIDERS: ATTEND Internal Medicine Hematology & Oncology
DX: D80.0 Hereditary hypogammaglobulinemia (principal); J45.909 Unspecified asthma, uncomplicated; Z79.899 Other long term (current) drug therapy
CPT/HCPCS: 36415; 80053; 85025; 96365; 96366

== ENCOUNTER 2018-05-29 12:48 | Outpatient (RCR) | payer MEDICAID ==
[2018-05-01 12:56] LABS: BASOPHILS % (AUTO) 0 % (0-10); EOSINOPHILS # (AUTO) 0.1 10^3/uL (0.0-0.3); EOSINOPHILS % (AUTO) 3 % (0-10); HEMATOCRIT 39 % (35-52); HEMOGLOBIN 13.1 G/DL (11.5-16.0); LYMPHOCYTES # (AUTO) 1.4 X 10^3 (1.0-4.0); LYMPHOCYTES % (AUTO) 25 % (12-44); MEAN CORPUSCULAR HEMOGLOBIN 28 PG (25-34); MEAN CORPUSCULAR HGB CONC 34 G/DL (32-36); MEAN CORPUSCULAR VOLUME 84 FL (80-99); MEAN PLATELET VOLUME 8.9 FL (7.4-10.4); MONOCYTES # (AUTO) 0.4 X 10^3 (0.0-1.0); MONOCYTES % (AUTO) 8 % (0-12); NEUTROPHILS # (AUTO) 3.6 X 10^3 (1.8-7.8); NEUTROPHILS % (AUTO) 65 % (42-75); PLATELET COUNT 213 10^3/uL (130-400); RED BLOOD COUNT 4.61 10^6/uL (4.35-5.85); RED CELL DISTRIBUTION WIDTH 13.1 % (10.0-14.5); WHITE BLOOD COUNT 5.5 10^3/uL (4.3-11.0)
[2018-05-01 13:24] LABS: ALANINE AMINOTRANSFERASE 18 U/L (0-55); ALBUMIN 3.9 GM/DL (3.2-4.5); ALKALINE PHOSPHATASE 83 U/L (40-136); BILIRUBIN,TOTAL 0.3 MG/DL (0.1-1.0); BUN/CREATININE RATIO 15; CARBON DIOXIDE 23 MMOL/L (21-32); CHLORIDE 107 MMOL/L (98-107); CREATININE SERUM 0.59 MG/DL (0.60-1.30); GFR ESTIMATED > 60; GLUCOSE 97 MG/DL (70-105); POTASSIUM 4.3 MMOL/L (3.6-5.0); SODIUM 140 MMOL/L (135-145); TOTAL PROTEIN 5.9 GM/DL (6.4-8.2)
[~2018-05-29 12:48] MED LIST changes: +IMMU GLOBULIN,GAMMA (IGG) 100 ML IV SCH
== END 2018-06-26 08:20 | disposition home or self-care (01) ==
LOC: ONC 12:48
PROVIDERS: ATTEND Internal Medicine Hematology & Oncology
DX: D80.0 Hereditary hypogammaglobulinemia (principal); J45.909 Unspecified asthma, uncomplicated; Z79.899 Other long term (current) drug therapy
CPT/HCPCS: 36415; 80053; 82784; 85025; 96365; 96366; J1569

== ENCOUNTER → 2018-06-26 | Outpatient (CLI) | payer MEDICAID ==
[~2018-06-26] MED LIST changes: -ACETAMINOPHEN 500 MG TAB (TYLENOL) CANCER CTR PO PRN; -IMMU GLOBULIN,GAMMA (IGG) 100 ML IV SCH; -IMMU GLOBULIN,GAMMA (IGG) 50 ML IV SCH; -IMMUNE GLOBULIN,GAMMA (IGG) 200 ML IV SCH; -diphenhydrAMINE 25 MG TAB (BENADRYL) CANCER CENTER PO SCH
--- NOTE | 2018-06-26 16:25 | Diagnostic Imaging Report ---
EXAMINATION: PA and lateral chest at 04:16 p.m. INDICATION: Cough, shortness of breath. FINDINGS: The heart size is within normal limits and stable when compared to 08/04/2010. The lungs are clear. There is no evidence for failure, pneumonia, or for pleural effusion. The mediastinum is not widened. The osseous structures are intact. Surgical clips are again seen in the right upper quadrant. IMPRESSION: There is no evidence for active disease. Dictated by: Dictated on workstation # [id number]
== END ==
LOC: RAD 14:10
PROVIDERS: ATTEND Nurse Practitioner Adult Health
DX: R06.02 Shortness of breath (principal); R05 Cough; R06.2 Wheezing
CPT/HCPCS: 71046

== ENCOUNTER 2018-07-24 12:54 | Outpatient (RCR) | payer MEDICAID ==
[2018-06-26 13:13] LABS: BASOPHILS % (AUTO) 0 % (0-10); EOSINOPHILS # (AUTO) 0.2 10^3/uL (0.0-0.3); EOSINOPHILS % (AUTO) 2 % (0-10); HEMATOCRIT 42 % (35-52); HEMOGLOBIN 14.3 G/DL (11.5-16.0); LYMPHOCYTES # (AUTO) 1.3 X 10^3 (1.0-4.0); LYMPHOCYTES % (AUTO) 19 % (12-44); MEAN CORPUSCULAR HEMOGLOBIN 28 PG (25-34); MEAN CORPUSCULAR HGB CONC 34 G/DL (32-36); MEAN CORPUSCULAR VOLUME 82 FL (80-99); MEAN PLATELET VOLUME 8.8 FL (7.4-10.4); MONOCYTES # (AUTO) 0.4 X 10^3 (0.0-1.0); MONOCYTES % (AUTO) 5 % (0-12); NEUTROPHILS # (AUTO) 5.2 X 10^3 (1.8-7.8); NEUTROPHILS % (AUTO) 74 % (42-75); PLATELET COUNT 298 10^3/uL (130-400); RED CELL DISTRIBUTION WIDTH 12.8 % (10.0-14.5); WHITE BLOOD COUNT 7.1 10^3/uL (4.3-11.0)
[2018-06-26 13:39] LABS: ALANINE AMINOTRANSFERASE 14 U/L (0-55); ALBUMIN 4.3 GM/DL (3.2-4.5); ALKALINE PHOSPHATASE 101 U/L (40-136); BILIRUBIN,TOTAL 0.4 MG/DL (0.1-1.0); BUN/CREATININE RATIO 10; CALCIUM 9.2 MG/DL (8.5-10.1); CARBON DIOXIDE 22 MMOL/L (21-32); CHLORIDE 103 MMOL/L (98-107); CREATININE SERUM 0.67 MG/DL (0.60-1.30); GFR ESTIMATED > 60; GLUCOSE 78 MG/DL (70-105); POTASSIUM 3.1 MMOL/L (3.6-5.0); SODIUM 138 MMOL/L (135-145); TOTAL PROTEIN 6.7 GM/DL (6.4-8.2)
[~2018-07-24 12:54] MED LIST changes: +ACETAMINOPHEN 500 MG TAB (TYLENOL) CANCER CTR PO PRN; +IMMU GLOBULIN,GAMMA (IGG) 50 ML IV SCH; +IMMUNE GLOBULIN,GAMMA (IGG) 200 ML IV SCH; +diphenhydrAMINE 25 MG TAB (BENADRYL) CANCER CENTER PO SCH
[2018-08-21 13:09] LABS: BASOPHILS % (AUTO) 0 % (0-10); EOSINOPHILS # (AUTO) 0.1 10^3/uL (0.0-0.3); EOSINOPHILS % (AUTO) 1 % (0-10); HEMATOCRIT 42 % (35-52); HEMOGLOBIN 14.3 G/DL (11.5-16.0); LYMPHOCYTES # (AUTO) 1.4 X 10^3 (1.0-4.0); LYMPHOCYTES % (AUTO) 24 % (12-44); MEAN CORPUSCULAR HEMOGLOBIN 28 PG (25-34); MEAN CORPUSCULAR HGB CONC 34 G/DL (32-36); MEAN CORPUSCULAR VOLUME 81 FL (80-99); MEAN PLATELET VOLUME 8.9 FL (7.4-10.4); MONOCYTES # (AUTO) 0.4 X 10^3 (0.0-1.0); MONOCYTES % (AUTO) 6 % (0-12); NEUTROPHILS # (AUTO) 3.8 X 10^3 (1.8-7.8); NEUTROPHILS % (AUTO) 68 % (42-75); PLATELET COUNT 247 10^3/uL (130-400); RED CELL DISTRIBUTION WIDTH 13.4 % (10.0-14.5); WHITE BLOOD COUNT 5.6 10^3/uL (4.3-11.0)
[2018-08-21 13:25] LABS: ALANINE AMINOTRANSFERASE 18 U/L (0-55); ALBUMIN 4.1 GM/DL (3.2-4.5); ALKALINE PHOSPHATASE 78 U/L (40-136); BILIRUBIN,TOTAL 0.4 MG/DL (0.1-1.0); BUN/CREATININE RATIO 9; CALCIUM 9.2 MG/DL (8.5-10.1); CARBON DIOXIDE 20 MMOL/L (21-32); CHLORIDE 111 MMOL/L (98-107); CREATININE SERUM 0.65 MG/DL (0.60-1.30); GFR ESTIMATED > 60; GLUCOSE 91 MG/DL (70-105); POTASSIUM 3.1 MMOL/L (3.6-5.0); SODIUM 141 MMOL/L (135-145)
== END 2018-08-21 15:31 | disposition home or self-care (01) ==
LOC: ONC 12:54
PROVIDERS: ATTEND Internal Medicine Hematology & Oncology
DX: D80.0 Hereditary hypogammaglobulinemia (principal); J45.909 Unspecified asthma, uncomplicated; Z79.899 Other long term (current) drug therapy
CPT/HCPCS: 36415; 80053; 82784; 83735; 85025; 96365; 96366; J1569

== ENCOUNTER 2019-03-05 13:57 | Outpatient (RCR) | payer MEDICAID ==
[2019-01-08 13:28] LABS: BASOPHILS % (AUTO) 0 % (0-10); EOSINOPHILS # (AUTO) 0.1 10^3/uL (0.0-0.3); EOSINOPHILS % (AUTO) 2 % (0-10); HEMATOCRIT 39 % (35-52); HEMOGLOBIN 13.1 G/DL (11.5-16.0); LYMPHOCYTES # (AUTO) 1.2 X 10^3 (1.0-4.0); LYMPHOCYTES % (AUTO) 25 % (12-44); MEAN CORPUSCULAR HEMOGLOBIN 28 PG (25-34); MEAN CORPUSCULAR HGB CONC 34 G/DL (32-36); MEAN CORPUSCULAR VOLUME 83 FL (80-99); MEAN PLATELET VOLUME 9.2 FL (7.4-10.4); MONOCYTES # (AUTO) 0.4 X 10^3 (0.0-1.0); MONOCYTES % (AUTO) 7 % (0-12); NEUTROPHILS # (AUTO) 3.2 X 10^3 (1.8-7.8); NEUTROPHILS % (AUTO) 66 % (42-75); PLATELET COUNT 220 10^3/uL (130-400); RED CELL DISTRIBUTION WIDTH 12.9 % (10.0-14.5); WHITE BLOOD COUNT 4.8 10^3/uL (4.3-11.0)
[2019-01-08 13:52] LABS: ALANINE AMINOTRANSFERASE 17 U/L (0-55); ALBUMIN 3.7 GM/DL (3.2-4.5); ALKALINE PHOSPHATASE 70 U/L (40-136); BILIRUBIN,TOTAL 0.3 MG/DL (0.1-1.0); BUN/CREATININE RATIO 16; CALCIUM 8.7 MG/DL (8.5-10.1); CARBON DIOXIDE 22 MMOL/L (21-32); CHLORIDE 107 MMOL/L (98-107); CREATININE SERUM 0.67 MG/DL (0.60-1.30); GFR ESTIMATED > 60; GLUCOSE 102 MG/DL (70-105); POTASSIUM 3.2 MMOL/L (3.6-5.0); SODIUM 139 MMOL/L (135-145); TOTAL PROTEIN 5.7 GM/DL (6.4-8.2)
[~2019-03-05 13:57] MED LIST changes: -ACETAMINOPHEN 500 MG TAB (TYLENOL) CANCER CTR PO PRN; +ACETAMINOPHEN 500 MG TAB (TYLENOL) CANCER CTR PO SCH; +IMMU GLOBULIN,GAMMA (IGG) 100 ML IV SCH; -IMMU GLOBULIN,GAMMA (IGG) 50 ML IV SCH; +IMMUNE GLOBULIN,GAMMA (IGG) 300 ML IV SCH
[2019-03-05 14:14] LABS: BASOPHILS % (AUTO) 0 % (0-10); EOSINOPHILS # (AUTO) 0.1 10^3/uL (0.0-0.3); EOSINOPHILS % (AUTO) 3 % (0-10); HEMATOCRIT 40 % (35-52); HEMOGLOBIN 13.3 G/DL (11.5-16.0); LYMPHOCYTES # (AUTO) 1.3 X 10^3 (1.0-4.0); LYMPHOCYTES % (AUTO) 30 % (12-44); MEAN CORPUSCULAR HEMOGLOBIN 28 PG (25-34); MEAN CORPUSCULAR HGB CONC 34 G/DL (32-36); MEAN CORPUSCULAR VOLUME 82 FL (80-99); MEAN PLATELET VOLUME 8.9 FL (7.4-10.4); MONOCYTES # (AUTO) 0.3 X 10^3 (0.0-1.0); MONOCYTES % (AUTO) 7 % (0-12); NEUTROPHILS # (AUTO) 2.5 X 10^3 (1.8-7.8); NEUTROPHILS % (AUTO) 60 % (42-75); PLATELET COUNT 213 10^3/uL (130-400); RED CELL DISTRIBUTION WIDTH 12.7 % (10.0-14.5); WHITE BLOOD COUNT 4.2 10^3/uL (4.3-11.0)
[2019-03-05 14:32] LABS: ALANINE AMINOTRANSFERASE 18 U/L (0-55); ALBUMIN 3.9 GM/DL (3.2-4.5); ALKALINE PHOSPHATASE 70 U/L (40-136); BILIRUBIN,TOTAL 0.3 MG/DL (0.1-1.0); BUN/CREATININE RATIO 20; CALCIUM 8.9 MG/DL (8.5-10.1); CARBON DIOXIDE 21 MMOL/L (21-32); CHLORIDE 108 MMOL/L (98-107); CREATININE SERUM 0.64 MG/DL (0.60-1.30); GFR ESTIMATED > 60; GLUCOSE 109 MG/DL (70-105); POTASSIUM 3.3 MMOL/L (3.6-5.0); SODIUM 140 MMOL/L (135-145); TOTAL PROTEIN 5.8 GM/DL (6.4-8.2)
== END 2019-03-11 | disposition home or self-care (01) ==
LOC: ONC 13:57
PROVIDERS: ATTEND Internal Medicine Hematology & Oncology
DX: D80.0 Hereditary hypogammaglobulinemia (principal); J45.909 Unspecified asthma, uncomplicated; Z79.899 Other long term (current) drug therapy
CPT/HCPCS: 36415; 80053; 85025; 96365; 96366; J1569

== ENCOUNTER 2019-04-02 13:02 | Outpatient (RCR) | payer MEDICAID ==
[~2019-04-02 13:02] MED LIST changes: -IMMUNE GLOBULIN,GAMMA (IGG) 300 ML IV SCH
== END 2019-07-01 | disposition home or self-care (01) ==
LOC: ONC 13:02
PROVIDERS: ATTEND Internal Medicine Hematology & Oncology
DX: D80.0 Hereditary hypogammaglobulinemia (principal)
CPT/HCPCS: 96365; 96366; J1569

== ENCOUNTER → 2019-05-07 | Outpatient (CLI) | payer MEDICAID ==
[~2019-05-07] MED LIST changes: +ACETAMINOPHEN 500 MG TAB (TYLENOL) CANCER CTR ONE; -ACETAMINOPHEN 500 MG TAB (TYLENOL) CANCER CTR PO SCH; -IMMU GLOBULIN,GAMMA (IGG) 100 ML IV SCH; -IMMUNE GLOBULIN,GAMMA (IGG) 200 ML IV SCH; +diphenhydrAMINE 25 MG TAB (BENADRYL) CANCER CENTER PO ONE; -diphenhydrAMINE 25 MG TAB (BENADRYL) CANCER CENTER PO SCH
== END ==
LOC: ONC 11:01
PROVIDERS: ATTEND Internal Medicine Hematology & Oncology
DX: D80.0 Hereditary hypogammaglobulinemia (principal)
CPT/HCPCS: 96365; 96366

== ENCOUNTER 2019-12-09 10:10 | Outpatient (RCR) | payer MEDICAID ==
[2019-10-06 10:04] LABS: ALBUMIN 3.9 GM/DL (3.2-4.5); CHLORIDE 105 MMOL/L (98-107); SODIUM 138 MMOL/L (135-145)
[2019-10-06 10:05] LABS: CALCIUM 8.8 MG/DL (8.5-10.1)
[2019-10-06 10:06] LABS: BASOPHILS % (AUTO) 0 % (0-10); EOSINOPHILS # (AUTO) 0.2 10^3/uL (0.0-0.3); EOSINOPHILS % (AUTO) 4 % (0-10); GLUCOSE 89 MG/DL (70-105); HEMATOCRIT 40 % (35-52); HEMOGLOBIN 13.7 G/DL (11.5-16.0); LYMPHOCYTES # (AUTO) 1.3 X 10^3 (1.0-4.0); LYMPHOCYTES % (AUTO) 24 % (12-44); MEAN CORPUSCULAR HEMOGLOBIN 28 PG (25-34); MEAN CORPUSCULAR HGB CONC 34 G/DL (32-36); MEAN CORPUSCULAR VOLUME 82 FL (80-99); MEAN PLATELET VOLUME 8.7 FL (7.4-10.4); MONOCYTES # (AUTO) 0.6 X 10^3 (0.0-1.0); MONOCYTES % (AUTO) 12 % (0-12); NEUTROPHILS # (AUTO) 3.2 X 10^3 (1.8-7.8); NEUTROPHILS % (AUTO) 61 % (42-75); PLATELET COUNT 250 10^3/uL (130-400); TOTAL PROTEIN 5.9 GM/DL (6.4-8.2); WHITE BLOOD COUNT 5.3 10^3/uL (4.3-11.0)
[2019-10-06 10:07] LABS: CARBON DIOXIDE 24 MMOL/L (21-32)
[2019-10-06 10:08] LABS: BILIRUBIN,TOTAL 0.4 MG/DL (0.1-1.0)
[2019-10-06 10:10] LABS: ALKALINE PHOSPHATASE 79 U/L (40-136); CREATININE SERUM 0.61 MG/DL (0.60-1.30); GFR ESTIMATED > 60
[2019-10-06 10:11] LABS: BUN/CREATININE RATIO 16
[2019-10-06 10:13] LABS: ALANINE AMINOTRANSFERASE 14 U/L (0-55)
[~2019-12-09 10:10] MED LIST changes: -ACETAMINOPHEN 500 MG TAB (TYLENOL) CANCER CTR ONE; +ACETAMINOPHEN 500 MG TAB (TYLENOL) CANCER CTR PO SCH; +IMMU GLOBULIN,GAMMA (IGG) 100 ML IV SCH; +IMMUNE GLOBULIN,GAMMA (IGG) 200 ML IV SCH; -diphenhydrAMINE 25 MG TAB (BENADRYL) CANCER CENTER PO ONE; +diphenhydrAMINE 25 MG TAB (BENADRYL) CANCER CENTER PO SCH
[2019-12-09 10:25] LABS: BASOPHILS % (AUTO) 0 % (0-10); EOSINOPHILS # (AUTO) 0.1 10^3/uL (0.0-0.3); EOSINOPHILS % (AUTO) 2 % (0-10); HEMATOCRIT 40 % (35-52); HEMOGLOBIN 13.2 G/DL (11.5-16.0); LYMPHOCYTES # (AUTO) 1.3 X 10^3 (1.0-4.0); LYMPHOCYTES % (AUTO) 23 % (12-44); MEAN CORPUSCULAR HEMOGLOBIN 27 PG (25-34); MEAN CORPUSCULAR HGB CONC 33 G/DL (32-36); MEAN CORPUSCULAR VOLUME 82 FL (80-99); MONOCYTES # (AUTO) 0.6 X 10^3 (0.0-1.0); MONOCYTES % (AUTO) 11 % (0-12); NEUTROPHILS # (AUTO) 3.7 X 10^3 (1.8-7.8); NEUTROPHILS % (AUTO) 64 % (42-75); PLATELET COUNT 257 10^3/uL (130-400); RED CELL DISTRIBUTION WIDTH 13.5 % (10.0-14.5); WHITE BLOOD COUNT 5.7 10^3/uL (4.3-11.0)
[2019-12-09 10:57] LABS: ALANINE AMINOTRANSFERASE 20 U/L (0-55); ALBUMIN 3.7 GM/DL (3.2-4.5); ALKALINE PHOSPHATASE 82 U/L (40-136); BILIRUBIN,TOTAL 0.2 MG/DL (0.1-1.0); BUN/CREATININE RATIO 22; CALCIUM 8.1 MG/DL (8.5-10.1); CARBON DIOXIDE 18 MMOL/L (21-32); CHLORIDE 107 MMOL/L (98-107); CREATININE SERUM 0.64 MG/DL (0.60-1.30); GFR ESTIMATED > 60; GLUCOSE 92 MG/DL (70-105); POTASSIUM 4.2 MMOL/L (3.6-5.0); SODIUM 137 MMOL/L (135-145)
== END 2020-01-04 | disposition home or self-care (01) ==
LOC: ONC 10:10
PROVIDERS: ATTEND Internal Medicine Hematology & Oncology
DX: D80.0 Hereditary hypogammaglobulinemia (principal); K52.89 Other specified noninfective gastroenteritis and colitis
CPT/HCPCS: 80053; 82784; 85025; 96365; 96366; J1569

== ENCOUNTER 2020-03-09 09:01 | Outpatient (RCR) | payer MEDICAID ==
[2020-02-03 10:20] LABS: BASOPHILS % (AUTO) 0 % (0-10); EOSINOPHILS # (AUTO) 0.1 10^3/uL (0.0-0.3); EOSINOPHILS % (AUTO) 2 % (0-10); HEMATOCRIT 38 % (35-52); HEMOGLOBIN 12.3 G/DL (11.5-16.0); LYMPHOCYTES # (AUTO) 1.1 X 10^3 (1.0-4.0); LYMPHOCYTES % (AUTO) 23 % (12-44); MEAN CORPUSCULAR HEMOGLOBIN 28 PG (25-34); MEAN CORPUSCULAR HGB CONC 33 G/DL (32-36); MEAN CORPUSCULAR VOLUME 87 FL (80-99); MEAN PLATELET VOLUME 9.2 FL (7.4-10.4); MONOCYTES # (AUTO) 0.4 X 10^3 (0.0-1.0); MONOCYTES % (AUTO) 8 % (0-12); NEUTROPHILS # (AUTO) 3.2 X 10^3 (1.8-7.8); NEUTROPHILS % (AUTO) 67 % (42-75); PLATELET COUNT 244 10^3/uL (130-400); WHITE BLOOD COUNT 4.7 10^3/uL (4.3-11.0)
[2020-02-03 10:39] LABS: ALANINE AMINOTRANSFERASE 18 U/L (0-55); ALBUMIN 3.8 GM/DL (3.2-4.5); ALKALINE PHOSPHATASE 68 U/L (40-136); BILIRUBIN,TOTAL 0.3 MG/DL (0.1-1.0); BUN/CREATININE RATIO 19; CALCIUM 8.2 MG/DL (8.5-10.1); CARBON DIOXIDE 20 MMOL/L (21-32); CHLORIDE 109 MMOL/L (98-107); CREATININE SERUM 0.63 MG/DL (0.60-1.30); GFR ESTIMATED > 60; GLUCOSE 103 MG/DL (70-105); SODIUM 137 MMOL/L (135-145); TOTAL PROTEIN 5.9 GM/DL (6.4-8.2)
== END 2020-04-05 | disposition home or self-care (01) ==
LOC: ONC 09:01
PROVIDERS: ATTEND Internal Medicine Hematology & Oncology
DX: Z51.11 Encounter for antineoplastic chemotherapy (principal); D80.0 Hereditary hypogammaglobulinemia; K52.89 Other specified noninfective gastroenteritis and colitis; J45.909 Unspecified asthma, uncomplicated; Z86.19 Personal history of other infectious and parasitic diseases
CPT/HCPCS: 36415; 80053; 85025; 96365; 96366; J1569

== ENCOUNTER 2020-05-04 09:52 | Outpatient (RCR) | payer MEDICAID ==
[2020-04-06 10:01] LABS: WHITE BLOOD COUNT 7.2 10^3/uL (4.3-11.0)
[2020-04-06 10:02] LABS: BASOPHILS % (AUTO) 0 % (0-10); EOSINOPHILS # (AUTO) 0.2 10^3/uL (0.0-0.3); EOSINOPHILS % (AUTO) 3 % (0-10); HEMATOCRIT 40 % (35-52); LYMPHOCYTES # (AUTO) 1.5 10^3/uL (1.0-4.0); LYMPHOCYTES % (AUTO) 21 % (12-44); MEAN CORPUSCULAR HEMOGLOBIN 28 pg (25-34); MEAN CORPUSCULAR HGB CONC 32 g/dL (32-36); MEAN CORPUSCULAR VOLUME 88 fL (80-99); MEAN PLATELET VOLUME 8.4 fL (9.0-12.2); MONOCYTES # (AUTO) 0.6 10^3/uL (0.0-1.0); MONOCYTES % (AUTO) 8 % (0-12); NEUTROPHILS # (AUTO) 4.9 10^3/uL (1.8-7.8); NEUTROPHILS % (AUTO) 68 % (42-75); PLATELET COUNT 308 10^3/uL (130-400)
[2020-04-06 10:21] LABS: ALANINE AMINOTRANSFERASE 19 U/L (0-55); ALBUMIN 3.9 GM/DL (3.2-4.5); ALKALINE PHOSPHATASE 80 U/L (40-136); BILIRUBIN,TOTAL 0.3 MG/DL (0.1-1.0); BUN/CREATININE RATIO 19; CALCIUM 8.1 MG/DL (8.5-10.1); CARBON DIOXIDE 20 MMOL/L (21-32); CHLORIDE 108 MMOL/L (98-107); CREATININE SERUM 0.64 MG/DL (0.60-1.30); GFR ESTIMATED > 60; GLUCOSE 95 MG/DL (70-105); POTASSIUM 3.2 MMOL/L (3.6-5.0); SODIUM 140 MMOL/L (135-145); TOTAL PROTEIN 5.9 GM/DL (6.4-8.2)
== END 2020-06-01 09:03 | disposition home or self-care (01) ==
LOC: ONC 09:52
PROVIDERS: ATTEND Internal Medicine Hematology & Oncology
DX: Z51.11 Encounter for antineoplastic chemotherapy (principal); D80.0 Hereditary hypogammaglobulinemia; J45.909 Unspecified asthma, uncomplicated; R10.84 Generalized abdominal pain; Z86.19 Personal history of other infectious and parasitic diseases
CPT/HCPCS: 36415; 80053; 82784; 85025; 96365; 96366; J1569

== ENCOUNTER 2020-06-01 09:08 | Outpatient (RCR) | payer MEDICAID ==
[~2020-06-01 09:08] MED LIST changes: -ACETAMINOPHEN 500 MG TAB (TYLENOL) CANCER CTR PO SCH; -IMMU GLOBULIN,GAMMA (IGG) 100 ML IV SCH; -IMMUNE GLOBULIN,GAMMA (IGG) 200 ML IV SCH; -diphenhydrAMINE 25 MG TAB (BENADRYL) CANCER CENTER PO SCH
[2020-06-01] MEDS ORDERED: IMMU GLOBULIN,GAMMA (IGG) 100 ML IV SCH (09:10)
[2020-06-01] MEDS ORDERED: ACETAMINOPHEN 500 MG TAB (TYLENOL) CANCER CTR PO SCH (09:10)
[2020-06-01] MEDS ORDERED: IMMUNE GLOBULIN,GAMMA (IGG) 200 ML IV SCH (09:10)
[2020-06-01] MEDS ORDERED: diphenhydrAMINE 25 MG TAB (BENADRYL) CANCER CENTER PO SCH (09:10)
[2020-06-01 09:37] LABS: BASOPHILS % (AUTO) 0 % (0-10); EOSINOPHILS # (AUTO) 0.1 10^3/uL (0.0-0.3); EOSINOPHILS % (AUTO) 1 % (0-10); HEMATOCRIT 40 % (35-52); HEMOGLOBIN 13.2 g/dL (11.5-16.0); LYMPHOCYTES # (AUTO) 1.2 10^3/uL (1.0-4.0); LYMPHOCYTES % (AUTO) 19 % (12-44); MEAN CORPUSCULAR HEMOGLOBIN 28 pg (25-34); MEAN CORPUSCULAR HGB CONC 33 g/dL (32-36); MEAN CORPUSCULAR VOLUME 83 fL (80-99); MEAN PLATELET VOLUME 9.2 fL (9.0-12.2); MONOCYTES # (AUTO) 0.5 10^3/uL (0.0-1.0); MONOCYTES % (AUTO) 7 % (0-12); NEUTROPHILS # (AUTO) 4.5 10^3/uL (1.8-7.8); NEUTROPHILS % (AUTO) 72 % (42-75); PLATELET COUNT 247 10^3/uL (130-400); WHITE BLOOD COUNT 6.3 10^3/uL (4.3-11.0)
[2020-06-01 09:54] LABS: ALANINE AMINOTRANSFERASE 19 U/L (0-55); ALBUMIN 3.6 GM/DL (3.2-4.5); ALKALINE PHOSPHATASE 80 U/L (40-136); BILIRUBIN,TOTAL 0.4 MG/DL (0.1-1.0); BUN/CREATININE RATIO 13; CALCIUM 7.7 MG/DL (8.5-10.1); CARBON DIOXIDE 24 MMOL/L (21-32); CHLORIDE 104 MMOL/L (98-107); CREATININE SERUM 0.63 MG/DL (0.60-1.30); GFR ESTIMATED > 60; GLUCOSE 94 MG/DL (70-105); POTASSIUM 2.9 MMOL/L (3.6-5.0); SODIUM 140 MMOL/L (135-145); TOTAL PROTEIN 5.4 GM/DL (6.4-8.2)
[2020-06-01 11:08] LABS: MAGNESIUM 1.1 MG/DL (1.6-2.4)
== END 2020-06-28 10:26 | disposition home or self-care (01) ==
LOC: ONC 09:08
PROVIDERS: ATTEND Internal Medicine Hematology & Oncology
DX: Z51.11 Encounter for antineoplastic chemotherapy (principal); D80.0 Hereditary hypogammaglobulinemia; J45.909 Unspecified asthma, uncomplicated; E87.6 Hypokalemia; E83.42 Hypomagnesemia; Z86.19 Personal history of other infectious and parasitic diseases
CPT/HCPCS: 36415; 80053; 82784; 83735; 85025; 96365; 96366; J1569

== ENCOUNTER 2020-08-09 13:21 | Emergency (ER) | payer MEDICAID ==
[~2020-08-09] VITALS: Ht 145 cm; Wt 45.3 kg
[2020-08-09 13:35] VITALS: BP 117/78
--- NOTE | 2020-08-09 13:43 | ED Upper Extremity ---
General Chief Complaint: Upper Extremity Stated Complaint: L WRIST AND HAND PAIN Source: patient Exam Limitations: no limitations History of Present Illness Date Seen by Provider: Aug 09, 2020 Time Seen by Provider: 13:42 Initial Comments To ER with left wrist pain after she fell at [facility] yesterday. She has been taking Tylenol and ibuprofen and elevating without much relief. Onset: just prior to arrival Severity: moderate Pain/Injury Location: left wrist Method of Injury: fell Modifying Factors: Worse With Movement Allergies and Home Medications Allergies Coded Allergies: acetaminophen (Verified Allergy, Unknown, 07/14/08) ciprofloxacin (Verified Allergy, Unknown, 07/14/08) propoxyphene (Verified Allergy, Unknown, 07/14/08) Home Medications Albuterol 17 Gm Aerosol, 1 GM INH PRN, (Reported) ONE TO TWO PUFFS EVERY 6 HRS. PRN Cephalexin 500 Mg Capsule, 500 MG PO Q8H, (Reported) Docusate Sodium 100 Mg Capsule, 100 MG PO BID PRN for CONSTIPATION Prescribed by: FRANKO MCNAMARA on 06/16/15 08 Hydrocodone Bit/Acetaminophen 1 Each Tablet, 1-2 EA PO Q6H PRN for PAIN Prescribed by: FRANKO MCNAMARA on 06/16/15825 Hydrocodone/Acetaminophen 1 Each Tablet, 1 TAB PO Q4H PRN for PAIN-MODERATE (5- 7) Prescribed by: REJI CHING on 08/09/20 1415 Ibuprofen 600 Mg Tablet, 600 MG PO Q6H PRN for PAIN Prescribed by: FRANKO MCNAMARA on 06/16/15 0826 Ondansetron 8 Mg Tab.rapdis, 8 MG PO Q6H PRN for NAUSEA/VOMITING Prescribed by: NANI EDMONDS on 06/17/15 1355 Oxycodone HCl/Acetaminophen 1 Each Tablet, 1 EACH PO Q4H PRN for PAIN Prescribed by: NANI EDMONDS on 06/17/15 1355 Polyethylene Glycol 3350 119 Gm Powder, 17 GM PO HS PRN for CONSTIPATION Prescribed by: NANI EDMONDS on 06/17/15 1355 Simethicone 80 Mg Tab.chew, 40 MG PO TID PRN for INDIGESTION Prescribed by: FRANKO MCNAMARA on 06/16/15 08 Patient Home Medication List Home Medication List Reviewed: Yes Review of Systems Constitutional: see HPI EENTM: see HPI Respiratory: no symptoms reported Cardiovascular: no symptoms reported Genitourinary: no symptoms reported Musculoskeletal: see HPI Skin: no symptoms reported Psychiatric/Neurological: No Symptoms Reported Past Ybyyqil-Wjaica-Kgxxaj Hx Patient Social History Alcohol Use: Occasionally Uses Smoking Status: Never a Smoker Recent Hopitalizations: Yes Immunizations Up To Date Tetanus Booster (TDap): Unknown Date of Pneumonia Vaccine: Sep 17, 2011 Past Medical History Surgeries: Yes ( tubes in ears, tongue, seed wart removed, KNEE SCOPES X2) 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 Respiratory: Yes (FROM IMMUNE DEFICIENCY) Asthma, Pneumonia, Chronic Bronchitis, COPD Cardiac: No Neurological: No Reproductive Disorders: Yes (PELVIC PAIN) Female Reproductive Disorders: Menstrual Problems, 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 Sexually Transmitted Disease: No HIV/AIDS: No UTI-Chronic Gastrointestinal: Yes (SEEING RELAY SHOP TESTER) Chronic Diarrhea Musculoskeletal: Yes ( LEFT KNEE AND BACK) Rheumatoid Arthritis Endocrine: Yes (AUTO IMMUNE DEFICIENCY, CVID, GETS INFUSIONS AT [facility] ONCE A MONTH) Loss of Vision: Denies Hearing Impairment: Denies Cancer: No Psychosocial: Yes Anxiety Integumentary: No Blood Disorders: No Adverse Reaction/Blood Tranf: No (HAS HAD BLOOD TRANSFUSION WITHOUT DIFFICULTY) Family Medical History No Pertinent Family Hx Physical Exam Vital Signs Vital Signs - First Documented 08/09/20 13:35 Temp 36.5 Pulse 76 Resp 18 B/P (MAP) 117/78 (91) Pulse Ox 100 O2 Delivery Room Air Capillary Refill : Height, Weight, BMI Height: 4'9" Weight: 128lbs. 6.0oz. 58.962974sv; BMI Method:Stated General Appearance: WD/WN, no apparent distress HEENT: PERRL/EOMI, normal ENT inspection Respiratory: no respiratory distress, no accessory muscle use Shoulder: normal inspection, non-tender Elbow/Forearm: normal inspection, non-tender Wrist: Yes ecchymosis (To the volar aspect of the left wrist. No appreciable swelling.) Neurologic/Psychiatric: alert, normal mood/affect, oriented x 3 Skin: normal color, warm/dry Progress/Results/Core Measures Results/Orders My Orders Orders - REJI CHING APRN Wrist, Left, 3 Views Or More (08/09/20 13:40) Hydrocodone/Apap 5/325 Tablet (Lortab 5 (08/09/20 13:45) Wrist-[place] (08/09/20 13:40) Medications Given in ED Current Medications Medications Dose Ordered Sig/Gus Route Start Time Stop Time Status Last Admin Dose Admin Acetaminophen/ Hydrocodone Bitart 1 tab ONCE ONCE PO 08/09/20 13:45 08/09/20 13:46 DC 08/09/20 13:50 1 TAB Vital Signs/I&O 08/09/20 13:35 Temp 36.5 Pulse 76 Resp 18 B/P (MAP) 117/78 (91) Pulse Ox 100 O2 Delivery Room Air Departure Communication (Admissions) Given a thumb spica, she has seen Dr. MONTIEL before and will follow up with him. NAME: [facility] REC#: [id number] PT STATUS: DEP ER : 1990 PHYSICIAN: REJI CHING APRN ADMIT DATE: 08/09/20/ER Signed Date of Exam:08/09/20 WRIST, LEFT, 3 VIEWS OR MORE INDICATION: Fall with left wrist injury and pain. TECHNIQUE: AP, oblique, and lateral views of the left wrist are obtained. FINDINGS: There is nondisplaced fracture through the distal pole of the scaphoid bone. This does demonstrate intra-articular involvement. No other definite fracture is seen. IMPRESSION: Nondisplaced distal scaphoid bone fracture. Dictated by: Dictated on workstation # [id number] Dict: 08/09/20 1403 Trans: 08/09/20 1550 [id number] [id number] Interpreted by: CHEL BARRIGA MD Electronically signed by: CHEL BARRIGA MD 08/09/20 1550 Impression Primary Impression: Scaphoid fracture Disposition: 01 HOME, SELF-CARE Condition: Stable Departure-Patient Inst. Decision time for Depature: 14:13 Referrals: JENARO RAMIREZ MD (PCP/Family) Primary Care Physician FRANKO MONTIEL MD Patient Instructions: Wrist Fracture (DC) Add. Discharge Instructions: 1. Return to ER for any concerns. Follow-up with an orthopedist later this week for recheck. Wear the wrist splint at all times except when showering. Take the pain medication as directed. All discharge instructions reviewed with patient and/or family. Voiced understanding. Scripts Hydrocodone/Acetaminophen (Hydrocodone-Acetamin 5-325 mg) 1 Each Tablet 1 TAB PO Q4H PRN for PAIN-MODERATE (5-7), #14 TAB Prov: REJI CHING PLANER CHAIN OFFBEARER 08/09/20 Copy Copies To 1: JENARO RAMIREZ MD; FRANKO MONTIEL MD, PETER J APRN Aug 09, 2020 13:43
[2020-08-09] MEDS ORDERED: HYDROcodone/APAP 5 MG/325 MG (LORTAB) TAB PO ONE (13:45)
--- NOTE | 2020-08-09 14:06 | Diagnostic Imaging Report ---
INDICATION: Fall with left wrist injury and pain. TECHNIQUE: AP, oblique, and lateral views of the left wrist are obtained. FINDINGS: There is nondisplaced fracture through the distal pole of the scaphoid bone. This does demonstrate intra-articular involvement. No other definite fracture is seen. IMPRESSION: Nondisplaced distal scaphoid bone fracture. Dictated by: Dictated on workstation # [id number]
[2020-08-09] MEDS ORDERED: ACHD5005 PO (14:14)
== END 2020-08-09 14:40 | disposition home or self-care (01) ==
LOC: EDUNIT# 13:21 → ER 13:23
DX: S62.015A Nondisplaced fracture of distal pole of navicular [scaphoid] bone of left wrist, initial encounter for closed fracture (principal); J44.9 Chronic obstructive pulmonary disease, unspecified; Z88.6 Allergy status to analgesic agent; Z88.1 Allergy status to other antibiotic agents; Z88.8 Allergy status to other drugs, medicaments and biological substances; W17.82XA Fall from (out of) grocery cart, initial encounter
CPT/HCPCS: 73110

== ENCOUNTER 2020-09-21 09:46 | Outpatient (RCR) | payer MEDICAID ==
[2020-06-29 10:56] LABS: BUN/CREATININE RATIO 15; CALCIUM 7.5 MG/DL (8.5-10.1); CARBON DIOXIDE 20 MMOL/L (21-32); CHLORIDE 109 MMOL/L (98-107); CREATININE SERUM 0.55 MG/DL (0.60-1.30); GFR ESTIMATED > 60; GLUCOSE 94 MG/DL (70-105); POTASSIUM 3.2 MMOL/L (3.6-5.0); SODIUM 139 MMOL/L (135-145)
[2020-06-29 10:58] LABS: MAGNESIUM 0.9 MG/DL (1.6-2.4)
[2020-07-13 13:31] LABS: BUN/CREATININE RATIO 18; CARBON DIOXIDE 24 MMOL/L (21-32); CHLORIDE 105 MMOL/L (98-107); CREATININE SERUM 0.61 MG/DL (0.60-1.30); GFR ESTIMATED > 60; GLUCOSE 82 MG/DL (70-105); POTASSIUM 3.6 MMOL/L (3.6-5.0); SODIUM 140 MMOL/L (135-145)
[2020-07-13 13:48] LABS: MAGNESIUM 1.1 MG/DL (1.6-2.4)
[2020-07-27 11:16] LABS: BASOPHILS % (AUTO) 0 % (0-10); EOSINOPHILS # (AUTO) 0.1 10^3/uL (0.0-0.3); EOSINOPHILS % (AUTO) 1 % (0-10); HEMATOCRIT 38 % (35-52); HEMOGLOBIN 12.5 g/dL (11.5-16.0); LYMPHOCYTES # (AUTO) 1.4 10^3/uL (1.0-4.0); LYMPHOCYTES % (AUTO) 24 % (12-44); MEAN CORPUSCULAR HEMOGLOBIN 29 pg (25-34); MEAN CORPUSCULAR HGB CONC 33 g/dL (32-36); MEAN CORPUSCULAR VOLUME 88 fL (80-99); MEAN PLATELET VOLUME 9.4 fL (9.0-12.2); MONOCYTES # (AUTO) 0.5 10^3/uL (0.0-1.0); MONOCYTES % (AUTO) 9 % (0-12); NEUTROPHILS # (AUTO) 3.6 10^3/uL (1.8-7.8); NEUTROPHILS % (AUTO) 64 % (42-75); PLATELET COUNT 274 10^3/uL (130-400); WHITE BLOOD COUNT 5.6 10^3/uL (4.3-11.0)
[2020-07-27 11:40] LABS: ALANINE AMINOTRANSFERASE 23 U/L (0-55); ALBUMIN 3.5 GM/DL (3.2-4.5); ALKALINE PHOSPHATASE 70 U/L (40-136); BILIRUBIN,TOTAL 0.2 MG/DL (0.1-1.0); BUN/CREATININE RATIO 16; CALCIUM 8.1 MG/DL (8.5-10.1); CARBON DIOXIDE 18 MMOL/L (21-32); CHLORIDE 109 MMOL/L (98-107); CREATININE SERUM 0.56 MG/DL (0.60-1.30); GFR ESTIMATED > 60; GLUCOSE 94 MG/DL (70-105); POTASSIUM 3.6 MMOL/L (3.6-5.0); SODIUM 138 MMOL/L (135-145); TOTAL PROTEIN 5.3 GM/DL (6.4-8.2)
[~2020-09-21 09:46] MED LIST changes: +ACETAMINOPHEN 500 MG TAB (TYLENOL) CANCER CTR PO SCH; +ACHD5005 PO; +IMMU GLOBULIN,GAMMA (IGG) 100 ML IV SCH; +IMMUNE GLOBULIN,GAMMA (IGG) 200 ML IV SCH; +MAGNESIUM SULFATE IV ONE; +NS (IVPB) CANCER CENTER 250 ML ONE; +POTASSIUM CHL IV ONE; +[UNRECOGNIZED DRUG - OTHER] IV ONE; +diphenhydrAMINE 25 MG TAB (BENADRYL) CANCER CENTER PO SCH
[2020-09-21 10:03] LABS: BASOPHILS % (AUTO) 0 % (0-10); EOSINOPHILS # (AUTO) 0.1 10^3/uL (0.0-0.3); EOSINOPHILS % (AUTO) 2 % (0-10); HEMATOCRIT 40 % (35-52); HEMOGLOBIN 12.8 g/dL (11.5-16.0); LYMPHOCYTES # (AUTO) 1.4 10^3/uL (1.0-4.0); LYMPHOCYTES % (AUTO) 19 % (12-44); MEAN CORPUSCULAR HEMOGLOBIN 30 pg (25-34); MEAN CORPUSCULAR HGB CONC 32 g/dL (32-36); MEAN CORPUSCULAR VOLUME 94 fL (80-99); MEAN PLATELET VOLUME 9.1 fL (9.0-12.2); MONOCYTES # (AUTO) 0.5 10^3/uL (0.0-1.0); MONOCYTES % (AUTO) 7 % (0-12); NEUTROPHILS # (AUTO) 5.2 10^3/uL (1.8-7.8); NEUTROPHILS % (AUTO) 72 % (42-75); PLATELET COUNT 239 10^3/uL (130-400); WHITE BLOOD COUNT 7.3 10^3/uL (4.3-11.0)
[2020-09-21 10:30] LABS: ALANINE AMINOTRANSFERASE 23 U/L (0-55); ALBUMIN 3.7 GM/DL (3.2-4.5); ALKALINE PHOSPHATASE 68 U/L (40-136); BILIRUBIN,TOTAL 0.2 MG/DL (0.1-1.0); BUN/CREATININE RATIO 26; CALCIUM 8.2 MG/DL (8.5-10.1); CARBON DIOXIDE 21 MMOL/L (21-32); CHLORIDE 109 MMOL/L (98-107); CREATININE SERUM 0.66 MG/DL (0.60-1.30); GFR ESTIMATED > 60; GLUCOSE 91 MG/DL (70-105); POTASSIUM 4.2 MMOL/L (3.6-5.0); SODIUM 139 MMOL/L (135-145); TOTAL PROTEIN 5.6 GM/DL (6.4-8.2)
== END 2020-09-27 | disposition home or self-care (01) ==
LOC: ONC 09:46
PROVIDERS: ATTEND Internal Medicine Hematology & Oncology
DX: Z51.11 Encounter for antineoplastic chemotherapy (principal); D80.0 Hereditary hypogammaglobulinemia; J45.909 Unspecified asthma, uncomplicated; E87.6 Hypokalemia; E83.42 Hypomagnesemia; Z86.19 Personal history of other infectious and parasitic diseases
CPT/HCPCS: 36415; 80048; 80053; 83735; 85025; 96365; 96366; J1569

== ENCOUNTER 2020-11-10 08:41 | Outpatient (RCR) | payer MEDICAID ==
[~2020-11-10 08:41] MED LIST changes: -ACETAMINOPHEN 500 MG TAB (TYLENOL) CANCER CTR PO SCH; -IMMU GLOBULIN,GAMMA (IGG) 100 ML IV SCH; -IMMUNE GLOBULIN,GAMMA (IGG) 200 ML IV SCH; -MAGNESIUM SULFATE IV ONE; -NS (IVPB) CANCER CENTER 250 ML ONE; -POTASSIUM CHL IV ONE; -[UNRECOGNIZED DRUG - OTHER] IV ONE; -diphenhydrAMINE 25 MG TAB (BENADRYL) CANCER CENTER PO SCH
== END 2020-11-15 09:47 | disposition home or self-care (01) ==
PROVIDERS: ATTEND Orthopaedic Surgery Sports Medicine
DX: M79.622 Pain in left upper arm (principal)

== ENCOUNTER 2021-01-11 09:17 | Outpatient (RCR) | payer MEDICAID ==
[2020-11-16 09:46] LABS: BASOPHILS % (AUTO) 1 % (0-10); EOSINOPHILS # (AUTO) 0.2 10^3/uL (0.0-0.3); EOSINOPHILS % (AUTO) 3 % (0-10); HEMATOCRIT 41 % (35-52); HEMOGLOBIN 13.3 g/dL (11.5-16.0); LYMPHOCYTES # (AUTO) 1.5 10^3/uL (1.0-4.0); LYMPHOCYTES % (AUTO) 25 % (12-44); MEAN CORPUSCULAR HEMOGLOBIN 28 pg (25-34); MEAN CORPUSCULAR HGB CONC 33 g/dL (32-36); MEAN CORPUSCULAR VOLUME 86 fL (80-99); MEAN PLATELET VOLUME 9.1 fL (9.0-12.2); MONOCYTES # (AUTO) 0.5 10^3/uL (0.0-1.0); MONOCYTES % (AUTO) 8 % (0-12); NEUTROPHILS # (AUTO) 3.8 10^3/uL (1.8-7.8); NEUTROPHILS % (AUTO) 64 % (42-75); PLATELET COUNT 281 10^3/uL (130-400); WHITE BLOOD COUNT 5.9 10^3/uL (4.3-11.0)
[2020-11-16 10:05] LABS: ALANINE AMINOTRANSFERASE 15 U/L (0-55); ALBUMIN 3.9 GM/DL (3.2-4.5); ALKALINE PHOSPHATASE 75 U/L (40-136); BILIRUBIN,TOTAL 0.3 MG/DL (0.1-1.0); BUN/CREATININE RATIO 16; CALCIUM 8.3 MG/DL (8.5-10.1); CARBON DIOXIDE 22 MMOL/L (21-32); CHLORIDE 108 MMOL/L (98-107); CREATININE SERUM 0.57 MG/DL (0.60-1.30); GFR ESTIMATED > 60; GLUCOSE 92 MG/DL (70-105); POTASSIUM 3.7 MMOL/L (3.6-5.0); SODIUM 138 MMOL/L (135-145); TOTAL PROTEIN 5.7 GM/DL (6.4-8.2)
[~2021-01-11 09:17] MED LIST changes: +ACETAMINOPHEN 500 MG TAB (TYLENOL) CANCER CTR PO SCH; +IMMU GLOBULIN,GAMMA (IGG) 100 ML IV SCH; +IMMUNE GLOBULIN,GAMMA (IGG) 200 ML IV SCH; +diphenhydrAMINE 25 MG TAB (BENADRYL) CANCER CENTER PO SCH
[2021-01-11 10:01] LABS: BASOPHILS % (AUTO) 1 % (0-10); EOSINOPHILS # (AUTO) 0.1 10^3/uL (0.0-0.3); EOSINOPHILS % (AUTO) 2 % (0-10); HEMATOCRIT 42 % (35-52); HEMOGLOBIN 13.8 g/dL (11.5-16.0); LYMPHOCYTES # (AUTO) 1.5 10^3/uL (1.0-4.0); LYMPHOCYTES % (AUTO) 23 % (12-44); MEAN CORPUSCULAR HEMOGLOBIN 27 pg (25-34); MEAN CORPUSCULAR HGB CONC 33 g/dL (32-36); MEAN CORPUSCULAR VOLUME 83 fL (80-99); MONOCYTES # (AUTO) 0.6 10^3/uL (0.0-1.0); MONOCYTES % (AUTO) 9 % (0-12); NEUTROPHILS # (AUTO) 4.3 10^3/uL (1.8-7.8); NEUTROPHILS % (AUTO) 66 % (42-75); PLATELET COUNT 260 10^3/uL (130-400); WHITE BLOOD COUNT 6.5 10^3/uL (4.3-11.0)
[2021-01-11 10:20] LABS: ALANINE AMINOTRANSFERASE 16 U/L (0-55); ALKALINE PHOSPHATASE 76 U/L (40-136); BILIRUBIN,TOTAL 0.3 MG/DL (0.1-1.0); BUN/CREATININE RATIO 13; CALCIUM 8.2 MG/DL (8.5-10.1); CARBON DIOXIDE 19 MMOL/L (21-32); CHLORIDE 110 MMOL/L (98-107); CREATININE SERUM 0.61 MG/DL (0.60-1.30); GFR ESTIMATED > 60; GLUCOSE 92 MG/DL (70-105); POTASSIUM 3.3 MMOL/L (3.6-5.0); SODIUM 139 MMOL/L (135-145); TOTAL PROTEIN 6.1 GM/DL (6.4-8.2)
== END 2021-01-17 | disposition home or self-care (01) ==
LOC: ONC 09:17
PROVIDERS: ATTEND Internal Medicine Hematology & Oncology
DX: Z51.11 Encounter for antineoplastic chemotherapy (principal); D80.0 Hereditary hypogammaglobulinemia; J45.909 Unspecified asthma, uncomplicated; E87.6 Hypokalemia; E83.42 Hypomagnesemia; Z86.19 Personal history of other infectious and parasitic diseases; Z79.899 Other long term (current) drug therapy
CPT/HCPCS: 36415; 80053; 82784; 85025; 96365; 96366; J1569

== ENCOUNTER 2021-03-22 09:50 | Emergency (ER) | payer MEDICAID ==
[~2021-03-22] VITALS: Ht 147 cm; Wt 100.0 kg
[~2021-03-22 09:50] MED LIST changes: -ACETAMINOPHEN 500 MG TAB (TYLENOL) CANCER CTR PO SCH; -IMMU GLOBULIN,GAMMA (IGG) 100 ML IV SCH; -IMMUNE GLOBULIN,GAMMA (IGG) 200 ML IV SCH; -diphenhydrAMINE 25 MG TAB (BENADRYL) CANCER CENTER PO SCH
[2021-03-22] MEDS ORDERED: fentaNYL INJ 100 MCG/2 ML AMP IVP ONE ×2 (11:00→14:15)
[2021-03-22] MEDS ORDERED: ONDANSETRON 4 MG/2 ML (SDV) Z0FRAN IVP ONE (11:00)
[2021-03-22] MEDS ORDERED: LACTATED RINGERS 1,000 ML IV SCH (11:00)
--- NOTE | 2021-03-22 11:00 | ED Abdominal Pain ---
General Chief Complaint: Abdominal/GI Problems Stated Complaint: ABD PAIN Nursing Triage Note: AMB TO ROOM C/O LOW ABD PAIN FOR 4 DAYS HAS PMH OF IBS HAS NOT TAKEN ANY OTC PAIN MEDS. REPORTS PAIN IS SO BAD UNABLE TO EAT. WAS DRINKING BOTTLE WATER ON ADMIT. Source of Information: Patient Exam Limitations: No Limitations (REJI CHING APRN) History of Present Illness Date Seen by Provider: Mar 22, 2021 Time Seen by Provider: 10:58 Initial Comments To ER with reports of diffuse abdominal pain worse than usual for about 4 days. However this pain is been present for about 1 year. She has a history of irritable bowel syndrome that she has been managing with dietary changes at [facility]. No fevers or chills. She has chronic diarrhea that is nonbloody. Food seems to make the pain worse. She is in so much pain that she vomits she states. 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 No fevers or chills. Timing/Duration: 3-4 Days Severity/Quality: Moderate Location: Periumbilical Radiation: No Radiation Activities at Onset: None Associated Symptoms: Nausea/Vomiting (REJI CHING APRN) Allergies and Home Medications Allergies Coded Allergies: acetaminophen (Verified Allergy, Unknown, 07/14/08) ciprofloxacin (Verified Allergy, Unknown, 07/14/08) propoxyphene (Verified Allergy, Unknown, 07/14/08) Patient Home Medication List Home Medication List Reviewed: Yes (REJI CHING APRN) Albuterol (Proventil Inh) 17 Gm Aerosol, 1 GM INH PRN, (Reported) Entered as Reported by: MARY CARMEN REAL on 08/04/10 1715 Cephalexin (Keflex) 500 Mg Capsule, 500 MG PO Q8H, (Reported) Entered as Reported by: LUCRETIA CARMONA on 06/15/15 0847 Dicyclomine HCl (Dicyclomine HCl) 10 Mg Capsule, 10 MG PO TID Prescribed by: REJI CHING on 03/22/21 1132 Docusate Sodium (Docusate Sodium) 100 Mg Capsule, 100 MG PO BID PRN for CONSTIPATION Prescribed by: FRANKO MCNAMARA on 06/16/15 0826 Hydrocodone Bit/Acetaminophen (Lortab 7.5 Mg Tablet) 1 Each Tablet, 1-2 EA PO Q6H PRN for PAIN Prescribed by: FRANKO MCNAMARA on 06/16/15 0826 Hydrocodone/Acetaminophen (Hydrocodone-Acetamin 5-325 mg) 1 Each Tablet, 1 TAB PO Q4H PRN for PAIN-MODERATE (5-7) Prescribed by: REJI CHING on 08/09/20 1415 Hyoscyamine Sulfate (Levsin-Sl) 0.125 Mg Tab.subl, 1-2 TAB SL Q4H PRN for CRAMPS Prescribed by: SARAH STEPHEN on 03/23/21 161 Ibuprofen (Ibuprofen) 600 Mg Tablet, 600 MG PO Q6H PRN for PAIN Prescribed by: FRANKO MCNAMARA on 06/16/15 08 Ondansetron (Ondansetron Odt) 8 Mg Tab.rapdis, 8 MG PO Q6H PRN for NAUSEA/VOMITING Prescribed by: NANI EDMONDS on 06/17/15 1355 Ondansetron (Ondansetron Odt) 8 Mg Tab.rapdis, 8 MG PO Q6H PRN for NAUSEA/VOMITING Prescribed by: REJI CHING on 03/22/21 1132 Oxycodone HCl/Acetaminophen (Percocet 5-325 mg Tablet) 1 Each Tablet, 1 EACH PO Q4H PRN for PAIN Prescribed by: NANI EDMONDS on 06/17/15 1355 Polyethylene Glycol 3350 (Miralax) 119 Gm Powder, 17 GM PO HS PRN for CONSTIPATION Prescribed by: NANI EDMONDS on 06/17/15 1355 Promethazine HCl (Promethazine Tablet) 25 Mg Tablet, 25 MG PO Q8H PRN for NAUSEA/VOMITING-2ND LINE Prescribed by: SARAH STEPHEN on 03/23/21 161 Simethicone (Simethicone) 80 Mg Tab.chew, 40 MG PO TID PRN for INDIGESTION Prescribed by: FRANKO MCNAMARA on 06/16/15 08 Review of Systems Review of Systems Constitutional: see HPI EENTM: No Symptoms Reported Respiratory: No Symptoms Reported Cardiovascular: No Symptoms Reported Gastrointestinal: See HPI, Abdominal Pain, Diarrhea, Nausea Genitourinary: No Symptoms Reported Musculoskeletal: no symptoms reported Skin: no symptoms reported Psychiatric/Neurological: No Symptoms Reported Endocrine: No Symptoms Reported Hematologic/Lymphatic: No Symptoms Reported (REJI CHING APRN) Past Ndzytuc-Uumfhf-Noirhj Hx Patient Social History Tobacco Use?: No Alcohol Frequency: Rarely Pt feels they are or have been: No (REJI CHING APRN) Immunizations Up To Date Tetanus Booster (TDap): Unknown (REJI CHING APRN) Past Medical History Surgeries: Yes ( tubes in ears, tongue, seed wart removed, KNEE SCOPES X2) 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 Respiratory: Yes (FROM IMMUNE DEFICIENCY) Asthma, Pneumonia, Chronic Bronchitis, COPD Cardiac: No Neurological: No Reproductive Disorders: Yes (PELVIC PAIN) Female Reproductive Disorders: Menstrual Problems, 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 Sexually Transmitted Disease: No HIV/AIDS: No UTI-Chronic 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) Chronic Diarrhea Musculoskeletal: Yes ( LEFT KNEE AND BACK) Rheumatoid Arthritis Endocrine: Yes (AUTO IMMUNE DEFICIENCY, CVID, GETS INFUSIONS AT [facility] ONCE A MONTH) Loss of Vision: Denies Hearing Impairment: Denies Cancer: No Psychosocial: Yes Anxiety Integumentary: No Blood Disorders: No Adverse Reaction/Blood Tranf: No (HAS HAD BLOOD TRANSFUSION WITHOUT DIFFICULTY) (REJI CHING APRN) Family Medical History No Pertinent Family Hx (REJI CHING APRN) Physical Exam Vital Signs Vital Signs - First Documented 03/22/21 10:32 Temp 37.0 Pulse 100 Resp 18 B/P (MAP) 119/95 (103) Pulse Ox 98 O2 Delivery Room Air (SARAH FAN MD) Vital Signs Capillary Refill : Less Than 3 Seconds (REJI CHING APRN) Height/Weight/BMI Height: 4'9" Weight: 128lbs. 6.0oz. 58.652855mr; 46.00 BMI Method:Stated General Appearance: WD/WN, no apparent distress HEENT: PERRL/EOMI, normal ENT inspection Respiratory: no respiratory distress, no accessory muscle use Cardiovascular: regular rate, rhythm, no murmur Gastrointestinal: normal bowel sounds, non tender, soft Extremities: normal range of motion, non-tender Neurologic/Psychiatric: alert, normal mood/affect, oriented x 3 Skin: normal color, warm/dry (REJI CHING APRN) Progress/Results/Core Measures Results/Orders Lab Results Laboratory Tests Test 03/22/21 10:49 03/22/21 10:55 Range/Units Urine Color YELLOW Urine Clarity SL CLOUDY Urine pH 6.0 5-9 Urine Specific [place] 1.020 1.016-1.022 Urine Protein TRACE H NEGATIVE Urine Glucose (UA) NEGATIVE NEGATIVE Urine Ketones TRACE H NEGATIVE Urine Nitrite NEGATIVE NEGATIVE Urine Bilirubin NEGATIVE NEGATIVE Urine Urobilinogen 0.2 < = 1.0 MG/DL Urine Leukocyte Esterase NEGATIVE NEGATIVE Urine RBC (Auto) TRACE-I NEGATIVE Urine RBC 0-2 /HPF Urine WBC 0-2 /HPF Urine Squamous Epithelial Cells NONE /HPF Urine Crystals PRESENT H /LPF Urine Amorphous Sediment FEW JULIETTE URATES H /LPF Urine Bacteria FEW H /HPF Urine Casts NONE /LPF Urine Mucus SMALL H /LPF Urine Culture Indicated NO White Blood Count 8.4 4.3-11.0 10^3/uL Red Blood Count 5.66 H 3.80-5.11 10^6/uL Hemoglobin 15.4 11.5-16.0 g/dL Hematocrit 47 35-52 % Mean Corpuscular Volume 83 80-99 fL Mean Corpuscular Hemoglobin 27 25-34 pg Mean Corpuscular Hemoglobin Concent 33 32-36 g/dL Red Cell Distribution Width 13.7 10.0-14.5 % Platelet Count 305 130-400 10^3/uL Mean Platelet Volume 9.0 9.0-12.2 fL Immature Granulocyte % (Auto) 0 % Neutrophils (%) (Auto) 64 42-75 % Lymphocytes (%) (Auto) 25 12-44 % Monocytes (%) (Auto) 10 0-12 % Eosinophils (%) (Auto) 1 0-10 % Basophils (%) (Auto) 1 0-10 % Neutrophils # (Auto) 5.3 1.8-7.8 10^3/uL Lymphocytes # (Auto) 2.1 1.0-4.0 10^3/uL Monocytes # (Auto) 0.8 0.0-1.0 10^3/uL Eosinophils # (Auto) 0.1 0.0-0.3 10^3/uL Basophils # (Auto) 0.1 0.0-0.1 10^3/uL Immature Granulocyte # (Auto) 0.0 0.0-0.1 10^3/uL Sodium Level 137 135-145 MMOL/L Potassium Level 3.2 L 3.6-5.0 MMOL/L Chloride Level 103 98-107 MMOL/L Carbon Dioxide Level 21 21-32 MMOL/L Anion Gap 13 5-14 MMOL/L Blood Urea Nitrogen 8 7-18 MG/DL Creatinine 0.72 0.60-1.30 MG/DL Estimat Glomerular Filtration Rate 96 BUN/Creatinine Ratio 11 Glucose Level 85 70-105 MG/DL Calcium Level 8.9 8.5-10.1 MG/DL Corrected Calcium 8.8 8.5-10.1 MG/DL Magnesium Level 1.2 L 1.6-2.4 MG/DL Total Bilirubin 0.5 0.1-1.0 MG/DL Aspartate Amino Transf (AST/SGOT) 24 5-34 U/L Alanine Aminotransferase (ALT/SGPT) 21 0-55 U/L Alkaline Phosphatase 105 40-136 U/L Total Protein 6.9 6.4-8.2 GM/DL Albumin 4.1 3.2-4.5 GM/DL Serum Test, Qualitative NEGATIVE NEGATIVE (SARAH FAN MD) My Orders Orders - SARAH FAN MD Ua Culture If Indicated (03/22/21 10:32) (SARAH FAN MD) Vital Signs/I&O 03/22/21 03/22/21 10:32 14:30 Temp 37.0 Pulse 100 95 Resp 18 18 B/P (MAP) 119/95 (103) 118/88 Pulse Ox 98 98 O2 Delivery Room Air Room Air (SARAH FAN MD) Blood Pressure Mean: 103 Departure Impression Primary Impression: IBS (irritable bowel syndrome) Disposition: 01 HOME, SELF-CARE Condition: Stable Departure-Patient Inst. Decision time for Depature: 11:30 (REJI CHING APRN) Referrals: JENARO RAMIREZ MD (PCP/Family) Primary Care Physician Patient Instructions: No Instuctions Given Scripts Dicyclomine HCl (Dicyclomine HCl) 10 Mg Capsule 10 MG PO TID, #14 CAP Prov: REJI CHING APRN 03/22/21 Ondansetron (Ondansetron Odt) 8 Mg Tab.rapdis 8 MG PO Q6H PRN for NAUSEA/VOMITING, #20 TAB Prov: REJI CHING APRN 03/22/21 ATTENDING PHYSICIAN NOTE: I was physically present as attending physician in the emergency department during the care of this patient, but I was not directly involved in the decision making or delivery of care for this patient. (SARAH FAN MD) REJI CHING APRN Mar 22, 2021 11:00 SARAH FAN MD Mar 24, 2021 12:09
[2021-03-22 11:07] LABS: BASOPHILS # (AUTO) 0.1 10^3/uL (0.0-0.1); BASOPHILS % (AUTO) 1 % (0-10); EOSINOPHILS # (AUTO) 0.1 10^3/uL (0.0-0.3); EOSINOPHILS % (AUTO) 1 % (0-10); HEMATOCRIT 47 % (35-52); HEMOGLOBIN 15.4 g/dL (11.5-16.0); LYMPHOCYTES # (AUTO) 2.1 10^3/uL (1.0-4.0); LYMPHOCYTES % (AUTO) 25 % (12-44); MEAN CORPUSCULAR HEMOGLOBIN 27 pg (25-34); MEAN CORPUSCULAR HGB CONC 33 g/dL (32-36); MEAN CORPUSCULAR VOLUME 83 fL (80-99); MONOCYTES # (AUTO) 0.8 10^3/uL (0.0-1.0); MONOCYTES % (AUTO) 10 % (0-12); NEUTROPHILS # (AUTO) 5.3 10^3/uL (1.8-7.8); NEUTROPHILS % (AUTO) 64 % (42-75); PLATELET COUNT 305 10^3/uL (130-400); WHITE BLOOD COUNT 8.4 10^3/uL (4.3-11.0)
[2021-03-22 11:07] LABS: CLARITY,URINE SL CLOUDY; COLOR,URINE YELLOW; GLUCOSE, URINE (UA) NEGATIVE (NEGATIVE); KETONES,URINE TRACE (NEGATIVE); LEUKOCYTE ESTERASE ,URINE NEGATIVE (NEGATIVE); NITRITE,URINE NEGATIVE (NEGATIVE); PROTEIN,URINE TRACE (NEGATIVE)
[2021-03-22 11:16] LABS: AMORPHOUS SEDIMENT,UR FEW AMOR URATES /LPF; BACTERIA,URINE FEW /HPF; BILIRUBIN,URINE NEGATIVE (NEGATIVE); RBC,URINE 0-2 /HPF; WBC,URINE 0-2 /HPF
[2021-03-22 11:18] LABS: ALBUMIN 4.1 GM/DL (3.2-4.5); POTASSIUM 3.2 MMOL/L (3.6-5.0)
[2021-03-22 11:19] LABS: CALCIUM 8.9 MG/DL (8.5-10.1)
[2021-03-22 11:21] LABS: TOTAL PROTEIN 6.9 GM/DL (6.4-8.2)
[2021-03-22 11:22] LABS: BILIRUBIN,TOTAL 0.5 MG/DL (0.1-1.0)
[2021-03-22 11:24] LABS: CREATININE SERUM 0.72 MG/DL (0.60-1.30)
[2021-03-22 11:27] LABS: MAGNESIUM 1.2 MG/DL (1.6-2.4)
[2021-03-22] MEDS ORDERED: DICY10CA12 PO (11:32)
[2021-03-22] MEDS ORDERED: ONDA8TAB13 PO (11:32)
[2021-03-22] MEDS: MAGNESIUM 1 GM/100 ML IVPB 100 ML IV SCH ×2 (12:14→13:16)
[2021-03-22 14:30] VITALS: BP 118/88
[2021-03-23] MEDS ORDERED: HYOS0.1283 SL (16:12)
[2021-03-23] MEDS ORDERED: PROM25TA14 PO (16:12)
== END 2021-03-22 14:34 | disposition home or self-care (01) ==
LOC: EDUNIT# 09:50 → ER 09:55
DX: K58.0 Irritable bowel syndrome with diarrhea (principal); J44.9 Chronic obstructive pulmonary disease, unspecified
CPT/HCPCS: 36415; 80053; 81000; 83735; 84703; 85025

== ENCOUNTER 2021-03-23 10:01 | Emergency (ER) | payer MEDICAID ==
[~2021-03-23] VITALS: Ht 145 cm; Wt 45.0 kg
[~2021-03-23 10:01] MED LIST changes: +DICY10CA12 PO
--- NOTE | 2021-03-23 10:39 | ED Abdominal Pain ---
General Chief Complaint: Abdominal/GI Problems Stated Complaint: ABD PAIN,NAUSEA Source of Information: Patient Exam Limitations: No Limitations (ALLISON NEVAREZ STUDENT) History of Present Illness Date Seen by Provider: Mar 23, 2021 Time Seen by Provider: 10:15 Initial Comments This is Miate, a 30 yo F, who presents to the ED with c/o abdominal pain and vomiting. Pt was seen in the ED yesterday and given prescriptions for zofran and dicyclomine. She felt better after getting home, but later last night she had more pain and cramping, took those medications and went to bed. Pt woke up this morning with increased pain and vomiting again. Pain described as stabbing and constant, rated as 10/10 and located in the epigastric region. Pt denies constipation, has past medical history of Irritable Bowel Syndrome, so she mainly has diarrhea. Last EGD and colonoscopy was 2 years ago. Pt mentioned that the doctor for those procedures told her she has mild reflux. 3 bm today. Last solid food she was able to hold down was yesterday's dinner, last oral intake she had was gatorade and water yesterday. Pt was instructed to see her primary care provider yesterday, the earliest appointment they could provide is on 03/28/21. Timing/Duration: 6-7 Days Severity/Quality: Moderate Location: Epigastric Radiation: No Radiation Activities at Onset: None, Rest Modifying Factors: Improves With Lying down; Worsens With Movement, Worsens With Vomiting Associated Symptoms: No Chest Pain, No Diaphoresis, No Fever/Chills, No Nausea/Vomiting (ALLISON NEVAREZ STUDENT) Allergies and Home Medications Allergies Coded Allergies: acetaminophen (Verified Allergy, Unknown, 07/14/08) ciprofloxacin (Verified Allergy, Unknown, 07/14/08) propoxyphene (Verified Allergy, Unknown, 07/14/08) Patient Home Medication List Home Medication List Reviewed: Yes (SARAH FAN MD) Albuterol (Proventil Inh) 17 Gm Aerosol, 1 GM INH PRN, (Reported) Entered as Reported by: MARY CARMEN REAL on 08/04/10 1715 Cephalexin (Keflex) 500 Mg Capsule, 500 MG PO Q8H, (Reported) Entered as Reported by: LUCRETIA CARMONA on 06/15/15 0847 Dicyclomine HCl (Dicyclomine HCl) 10 Mg Capsule, 10 MG PO TID Prescribed by: REJI CHING on 03/22/21 1132 Docusate Sodium (Docusate Sodium) 100 Mg Capsule, 100 MG PO BID PRN for CONSTIPATION Prescribed by: FRANKO MCNAMARA on 06/16/15 08 Hydrocodone Bit/Acetaminophen (Lortab 7.5 Mg Tablet) 1 Each Tablet, 1-2 EA PO Q6H PRN for PAIN Prescribed by: FRANKO MCNAMARA on 06/16/15 08 Hydrocodone/Acetaminophen (Hydrocodone-Acetamin 5-325 mg) 1 Each Tablet, 1 TAB PO Q4H PRN for PAIN-MODERATE (5-7) Prescribed by: REJI CHING on 08/09/20 1415 Hyoscyamine Sulfate (Levsin-Sl) 0.125 Mg Tab.subl, 1-2 TAB SL Q4H PRN for CRAMPS Prescribed by: SARAH STEPHEN on 03/23/21 161 Ibuprofen (Ibuprofen) 600 Mg Tablet, 600 MG PO Q6H PRN for PAIN Prescribed by: FRANKO MCNAMARA on 06/16/15 08 Ondansetron (Ondansetron Odt) 8 Mg Tab.rapdis, 8 MG PO Q6H PRN for NAUSEA/VOMITING Prescribed by: NANI EDMONDS on 06/17/15 1355 Ondansetron (Ondansetron Odt) 8 Mg Tab.rapdis, 8 MG PO Q6H PRN for NAUSEA/VOMITING Prescribed by: REJI CHING on 03/22/21 1132 Oxycodone HCl/Acetaminophen (Percocet 5-325 mg Tablet) 1 Each Tablet, 1 EACH PO Q4H PRN for PAIN Prescribed by: NANI EDMONDS on 06/17/15 1355 Polyethylene Glycol 3350 (Miralax) 119 Gm Powder, 17 GM PO HS PRN for CONSTIPATION Prescribed by: NANI EDMONDS on 06/17/15 1355 Promethazine HCl (Promethazine Tablet) 25 Mg Tablet, 25 MG PO Q8H PRN for NAUSEA/VOMITING-2ND LINE Prescribed by: SARAH STEPHEN on 03/23/21 161 Simethicone (Simethicone) 80 Mg Tab.chew, 40 MG PO TID PRN for INDIGESTION Prescribed by: FRANKO MCNAMARA on 06/16/15 0826 Review of Systems Review of Systems Constitutional: No chills, No diaphoresis, No dizziness, No fever Respiratory: Denies Cough, Denies Shortness of Air Cardiovascular: Denies Chest Pain, Denies Lightheadedness, Denies Palpitations Gastrointestinal: Abdominal Pain; Denies Blood Streaked Stools, Denies Constipated; Diarrhea, Nausea, Poor Appetite, Vomiting Genitourinary: No Symptoms Reported Musculoskeletal: no symptoms reported Skin: no symptoms reported Psychiatric/Neurological: No Symptoms Reported (ALLISON NEVAREZ) EENTM: No Symptoms Reported (SARAH FAN MD) Past Qcxdile-Anloec-Dgrbhs Hx Patient Social History Tobacco Use?: No Use of E-Cig and/or Vaping dev: No Substance use?: Yes Substance type: Marijuana Substance frequency: Once in a while (stated as about once a month) Alcohol Use?: Yes Alcohol type: Hard Liquor Alcohol Frequency: Once in a while (ALLISON NEVAREZ) Immunizations Up To Date Tetanus Booster (TDap): Unknown (ALLISON NEVAREZ) Past Medical History Surgeries: Yes ( tubes in ears, tongue, seed wart removed, KNEE SCOPES X2) 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 Respiratory: Yes (FROM IMMUNE DEFICIENCY) Asthma, Pneumonia, Chronic Bronchitis, COPD Cardiac: No Neurological: No Reproductive Disorders: Yes (PELVIC PAIN) Female Reproductive Disorders: Menstrual Problems, 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 Sexually Transmitted Disease: No HIV/AIDS: No UTI-Chronic Gastrointestinal: Yes (SEEING COATER SLATE) Gastroesophageal Reflux, Chronic Diarrhea Musculoskeletal: Yes ( LEFT KNEE AND BACK) Rheumatoid Arthritis Endocrine: Yes (AUTO IMMUNE DEFICIENCY, CVID, GETS INFUSIONS AT [facility] ONCE A MONTH) Loss of Vision: Denies Hearing Impairment: Denies Cancer: No Psychosocial: Yes Anxiety Integumentary: No Blood Disorders: No Adverse Reaction/Blood Tranf: No (HAS HAD BLOOD TRANSFUSION WITHOUT DIFFICULTY) (ALLISON NEVAREZ) Family Medical History No Pertinent Family Hx (ALLISON NEVAREZ) Physical Exam Vital Signs Vital Signs - First Documented 03/23/21 12:15 Temp 35.9 Pulse 93 Resp 16 B/P (MAP) 128/90 (103) Pulse Ox 98 O2 Delivery Room Air (SARAH FAN MD) Vital Signs Capillary Refill : (ALLISON NEVAREZ MED STUDENT) Height/Weight/BMI Height: 4'9" Weight: 128lbs. 6.0oz. 58.118061oi; 46.00 BMI Method:Stated General Appearance: WD/WN, mild distress (pt lying in bed, ankles croseed, looking at phone) Neck: non-tender, full range of motion Respiratory: chest non-tender, lungs clear, normal breath sounds, no respiratory distress Cardiovascular: regular rate, rhythm, no murmur Gastrointestinal: normal bowel sounds, soft, tenderness (epigastric region with palpation) Neurologic/Psychiatric: alert, normal mood/affect, oriented x 3 Skin: normal color, warm/dry (ALLISON NEVAREZ MED STUDENT) Progress/Results/Core Measures Results/Orders Lab Results Laboratory Tests Test 03/23/21 10:06 03/23/21 10:20 Range/Units Urine Color YELLOW Urine Clarity CLEAR Urine pH 6.5 5-9 Urine Specific [place] 1.025 H 1.016-1.022 Urine Protein TRACE H NEGATIVE Urine Glucose (UA) NEGATIVE NEGATIVE Urine Ketones NEGATIVE NEGATIVE Urine Nitrite NEGATIVE NEGATIVE Urine Bilirubin NEGATIVE NEGATIVE Urine Urobilinogen 0.2 < = 1.0 MG/DL Urine Leukocyte Esterase NEGATIVE NEGATIVE Urine RBC (Auto) TRACE-I NEGATIVE Urine RBC RARE /HPF Urine WBC NONE /HPF Urine Squamous Epithelial Cells 0-2 /HPF Urine Crystals NONE /LPF Urine Bacteria FEW H /HPF Urine Casts NONE /LPF Urine Mucus SMALL H /LPF Urine Culture Indicated NO White Blood Count 7.0 4.3-11.0 10^3/uL Red Blood Count 5.31 H 3.80-5.11 10^6/uL Hemoglobin 14.6 11.5-16.0 g/dL Hematocrit 45 35-52 % Mean Corpuscular Volume 84 80-99 fL Mean Corpuscular Hemoglobin 28 25-34 pg Mean Corpuscular Hemoglobin Concent 33 32-36 g/dL Red Cell Distribution Width 13.7 10.0-14.5 % Platelet Count 291 130-400 10^3/uL Mean Platelet Volume 8.9 L 9.0-12.2 fL Immature Granulocyte % (Auto) 0 % Neutrophils (%) (Auto) 69 42-75 % Lymphocytes (%) (Auto) 21 12-44 % Monocytes (%) (Auto) 9 0-12 % Eosinophils (%) (Auto) 1 0-10 % Basophils (%) (Auto) 1 0-10 % Neutrophils # (Auto) 4.8 1.8-7.8 10^3/uL Lymphocytes # (Auto) 1.5 1.0-4.0 10^3/uL Monocytes # (Auto) 0.6 0.0-1.0 10^3/uL Eosinophils # (Auto) 0.0 0.0-0.3 10^3/uL Basophils # (Auto) 0.0 0.0-0.1 10^3/uL Immature Granulocyte # (Auto) 0.0 0.0-0.1 10^3/uL Sodium Level 140 135-145 MMOL/L Potassium Level 3.0 L 3.6-5.0 MMOL/L Chloride Level 107 98-107 MMOL/L Carbon Dioxide Level 21 21-32 MMOL/L Anion Gap 12 5-14 MMOL/L Blood Urea Nitrogen 6 L 7-18 MG/DL Creatinine 0.68 0.60-1.30 MG/DL Estimat Glomerular Filtration Rate 102 BUN/Creatinine Ratio 9 Glucose Level 93 70-105 MG/DL Calcium Level 8.7 8.5-10.1 MG/DL Corrected Calcium 8.9 8.5-10.1 MG/DL Magnesium Level 1.5 L 1.6-2.4 MG/DL Total Bilirubin 0.2 0.1-1.0 MG/DL Aspartate Amino Transf (AST/SGOT) 21 5-34 U/L Alanine Aminotransferase (ALT/SGPT) 20 0-55 U/L Alkaline Phosphatase 89 40-136 U/L Total Protein 6.2 L 6.4-8.2 GM/DL Albumin 3.8 3.2-4.5 GM/DL Lipase 14 8-78 U/L (SARAH FAN MD) My Orders Orders - SARAH FAN MD Cbc With Automated Diff (03/23/21 10:36) Comprehensive Metabolic Panel (03/23/21 10:36) Lipase (03/23/21 10:36) Magnesium (03/23/21 10:36) Ua Culture If Indicated (03/23/21 10:36) Ed Iv/Invasive Line Start (03/23/21 10:36) Lactated Ringers (Lr 1000 Ml Iv Solution (03/23/21 10:45) Ondansetron Injection (Zofran Injectio (03/23/21 10:45) Famotidine Injection (Pepcid Injection) (03/23/21 10:45) Ns Iv 1000 Ml (Sodium Chloride 0.9%) (03/23/21 11:15) Potassium Cl 10meq/50ml Ivpb (Kcl 10 Meq (03/23/21 11:15) Magnesium 1 Gm/100 Ml Ivpb (Magnesium Resendiz (03/23/21 11:15) Potassium Cl 10meq/50ml Ivpb (Kcl 10 Meq (03/23/21 13:00) Hyoscyamine Sl Tablet (Levsin Sl Tablet) (03/23/21 13:00) Ns Iv 1000 Ml (Sodium Chloride 0.9%) (03/23/21 13:00) Promethazine Injection (Phenergan Injec (03/23/21 13:00) (SARAH FAN MD) Medications Given in ED (SARAH FAN MD) Vital Signs/I&O 03/23/21 03/23/21 12:15 18:21 Temp 35.9 36.1 Pulse 93 93 Resp 16 14 B/P (MAP) 128/90 (103) 109/75 Pulse Ox 98 99 O2 Delivery Room Air Room Air 03/24/21 00:00 Intake Total 3200 ml Balance 3200 ml (SARAH FAN MD) Progress Progress Note : Progress Note 1318 Pt stated that she is feeling a bit better. She mentioned the last time she had a potassium infusion that it was burning in her veins up to her shoulders. She does not think that she can hold down water at this point in time. 1450 Pt is is laying in bed, resting, and looks comfortable. She says that her pain and cramping got a little better with the Levsin. She is willing to try and drink some water. 1517 Patient was sleeping. She has had about one ounce of water at this time. Denies any nausea or recent vomiting. (ALLISON NEVAREZ MED STUDENT) Departure Impression Primary Impression: Hypokalemia Additional Impressions: Hypomagnesemia Abdominal pain Qualified Codes: R10.84 - Generalized abdominal pain Intestinal cramps Diarrhea Qualified Codes: R19.7 - Diarrhea, unspecified Disposition: 01 HOME, SELF-CARE Condition: Improved Departure-Patient Inst. Decision time for Depature: 16:09 (SARAH FAN MD) Referrals: JENARO RAMIREZ MD (PCP/Family) Primary Care Physician Patient Instructions: Severe Abdominal Pain, Adult (DC) Add. Discharge Instructions: Start with a clear liquid diet including Pedialyte (or generic equivalent), sports drinks, water, etc. Avoid using carbonated beverages. Gradually advance your diet with small quantities of bland food as tolerated. Use Zofran as your primary nausea medication. Add Phenergan if needed for breakthrough nausea. Use Levsin (hyoscyamine) as prescribed for bowel cramping and diarrhea. Follow-up with your material scheduler as soon as possible. Call with questions or concerns. Return to the ER if you have worsening symptoms. All discharge instructions reviewed with patient and/or family. Voiced understanding. Scripts Hyoscyamine Sulfate (Levsin-Sl) 0.125 Mg Tab.subl 1-2 TAB SL Q4H PRN for CRAMPS, #10 TAB 1 Refill Prov: SARAH FAN MD 03/23/21 Promethazine HCl (Promethazine Tablet) 25 Mg Tablet 25 MG PO Q8H PRN for NAUSEA/VOMITING-2ND LINE, #10 TAB Prov: SARAH FAN MD 03/23/21 Medical Student Attestation and Attending Note: I have personally interviewed and examined this patient along with Allison Nevarez, MS4. I have reviewed student documentation including history, physical, and assessments. I agree with the documentation except where otherwise noted. Exam: General: Alert, oriented, mod acute distress, well developed HEENT: Normocephalic and atraumatic, mucus membranes dry Heart: Regular rate and rhythm without murmur Lungs: Clear to auscultation bilaterally with normal effort Abdomen: Soft, tender epigastrium, nondistended, normal bowel sounds Neuropsych: Alert, oriented, no focal deficits Skin: Warm and dry without rashes Patient was well hydrated. Electrolytes were replaced by IV route. GI symptoms were treated with Zofran and Pepcid. Refractory nausea was treated with Phenergan. Symptoms did eventually resolve. She was able to tolerate oral water without consequence. Levsin was used for GI cramping and she was pleased with the effect. See discharge instructions for further discussion. Patient is established with Dr. Barr in [place] and she is encouraged to follow-up. (SARAH FAN MD) Copy Copies To 1: JENARO RAMIREZ MD, KATHRYN MED STUDENT Mar 23, 2021 10:39 SRAAH FAN MD Mar 23, 2021 16:12
[2021-03-23 10:42] LABS: BILIRUBIN,URINE NEGATIVE (NEGATIVE); CLARITY,URINE CLEAR; COLOR,URINE YELLOW; GLUCOSE, URINE (UA) NEGATIVE (NEGATIVE); KETONES,URINE NEGATIVE (NEGATIVE); LEUKOCYTE ESTERASE ,URINE NEGATIVE (NEGATIVE); NITRITE,URINE NEGATIVE (NEGATIVE); PH,URINE 6.5 (5-9); PROTEIN,URINE TRACE (NEGATIVE)
[2021-03-23 10:43] LABS: BASOPHILS % (AUTO) 1 % (0-10); EOSINOPHILS % (AUTO) 1 % (0-10); HEMATOCRIT 45 % (35-52); HEMOGLOBIN 14.6 g/dL (11.5-16.0); LYMPHOCYTES # (AUTO) 1.5 10^3/uL (1.0-4.0); LYMPHOCYTES % (AUTO) 21 % (12-44); MEAN CORPUSCULAR HEMOGLOBIN 28 pg (25-34); MEAN CORPUSCULAR HGB CONC 33 g/dL (32-36); MEAN CORPUSCULAR VOLUME 84 fL (80-99); MEAN PLATELET VOLUME 8.9 fL (9.0-12.2); MONOCYTES # (AUTO) 0.6 10^3/uL (0.0-1.0); MONOCYTES % (AUTO) 9 % (0-12); NEUTROPHILS # (AUTO) 4.8 10^3/uL (1.8-7.8); NEUTROPHILS % (AUTO) 69 % (42-75); PLATELET COUNT 291 10^3/uL (130-400)
[2021-03-23] MEDS ORDERED: LACTATED RINGERS 1,000 ML IV ONE (10:45)
[2021-03-23] MEDS ORDERED: ONDANSETRON 4 MG/2 ML (SDV) Z0FRAN IVP ONE (10:45)
[2021-03-23] MEDS ORDERED: FAMOTIDINE 20MG/2ML IV (PEPCID) IVP ONE (10:45)
[2021-03-23 10:48] LABS: ALBUMIN 3.8 GM/DL (3.2-4.5)
[2021-03-23 10:49] LABS: CALCIUM 8.7 MG/DL (8.5-10.1)
[2021-03-23 10:50] LABS: TOTAL PROTEIN 6.2 GM/DL (6.4-8.2)
[2021-03-23 10:52] LABS: BILIRUBIN,TOTAL 0.2 MG/DL (0.1-1.0)
[2021-03-23 10:52] LABS: BACTERIA,URINE FEW /HPF; RBC,URINE RARE /HPF; SQUAMOUS EPITHELIAL CELL,UR 0-2 /HPF
[2021-03-23 10:54] LABS: CREATININE SERUM 0.68 MG/DL (0.60-1.30)
[2021-03-23 10:57] LABS: MAGNESIUM 1.5 MG/DL (1.6-2.4)
[2021-03-23] MEDS ORDERED: NS IV 1000 ML 1,000 ML IV SCH ×2 (11:15→13:00)
[2021-03-23] MEDS ORDERED: POTASSIUM CL 10MEQ/50ML IVPB 50 ML IV ONE ×2 (11:15→13:00)
[2021-03-23] MEDS ORDERED: MAGNESIUM 1 GM/100 ML IVPB 100 ML IV ONE (11:15)
[2021-03-23] MEDS ORDERED: HYOSCYAMINE 0.125 MG (LEVSIN) TAB SL ONE (13:00)
[2021-03-23] MEDS ORDERED: PROMETHAZINE INJ 25 MG/ML (PHENERGAN) AMP IVP ONE (13:00)
[2021-03-23] MEDS ORDERED: HYOS0.1283 SL (16:12)
[2021-03-23] MEDS ORDERED: PROM25TA14 PO (16:12)
[2021-03-23 18:21] VITALS: BP 109/75
== END 2021-03-23 16:25 | disposition home or self-care (01) ==
LOC: EDUNIT# 10:01 → ER 10:02
DX: E87.6 Hypokalemia (principal); E83.42 Hypomagnesemia; R10.13 Epigastric pain; R19.7 Diarrhea, unspecified; J44.9 Chronic obstructive pulmonary disease, unspecified
CPT/HCPCS: 36415; 80053; 81000; 83690; 83735; 85025

== ENCOUNTER 2021-05-03 10:00 | Outpatient (RCR) | payer MEDICAID ==
[2021-03-08 09:54] LABS: BASOPHILS % (AUTO) 1 % (0-10); EOSINOPHILS # (AUTO) 0.1 10^3/uL (0.0-0.3); EOSINOPHILS % (AUTO) 2 % (0-10); HEMATOCRIT 45 % (35-52); HEMOGLOBIN 14.2 g/dL (11.5-16.0); LYMPHOCYTES # (AUTO) 1.2 10^3/uL (1.0-4.0); LYMPHOCYTES % (AUTO) 21 % (12-44); MEAN CORPUSCULAR HEMOGLOBIN 27 pg (25-34); MEAN CORPUSCULAR HGB CONC 32 g/dL (32-36); MEAN CORPUSCULAR VOLUME 86 fL (80-99); MEAN PLATELET VOLUME 8.9 fL (9.0-12.2); MONOCYTES # (AUTO) 0.5 10^3/uL (0.0-1.0); MONOCYTES % (AUTO) 8 % (0-12); NEUTROPHILS # (AUTO) 3.9 10^3/uL (1.8-7.8); NEUTROPHILS % (AUTO) 68 % (42-75); PLATELET COUNT 286 10^3/uL (130-400); WHITE BLOOD COUNT 5.8 10^3/uL (4.3-11.0)
[2021-03-08 10:15] LABS: ALBUMIN 3.6 GM/DL (3.2-4.5); BILIRUBIN,TOTAL 0.2 MG/DL (0.1-1.0); CALCIUM 8.5 MG/DL (8.5-10.1); CREATININE SERUM 0.6 MG/DL (0.60-1.30); POTASSIUM 4.1 MMOL/L (3.6-5.0); TOTAL PROTEIN 5.4 GM/DL (6.4-8.2)
[~2021-05-03 10:00] MED LIST changes: +ACETAMINOPHEN 500 MG TAB (TYLENOL) CANCER CTR PO SCH; +HYOS0.1283 SL; +IMMU GLOBULIN,GAMMA (IGG) 100 ML IV SCH; +IMMUNE GLOBULIN,GAMMA (IGG) 200 ML IV SCH; +PROM25TA14 PO; +diphenhydrAMINE 25 MG TAB (BENADRYL) CANCER CENTER PO SCH
== END 2021-05-10 | disposition home or self-care (01) ==
LOC: ONC 10:00
PROVIDERS: ATTEND Internal Medicine Hematology & Oncology
DX: Z51.11 Encounter for antineoplastic chemotherapy (principal); D80.0 Hereditary hypogammaglobulinemia; J45.909 Unspecified asthma, uncomplicated; E87.6 Hypokalemia; E83.42 Hypomagnesemia; Z86.19 Personal history of other infectious and parasitic diseases; Z79.899 Other long term (current) drug therapy
CPT/HCPCS: 36415; 80053; 85025; 96365; 96366; J1569

== ENCOUNTER 2021-05-31 09:42 | Outpatient (RCR) | payer MEDICAID ==
[2021-05-31 10:33] LABS: BASOPHILS % (AUTO) 1 % (0-10); EOSINOPHILS # (AUTO) 0.1 10^3/uL (0.0-0.3); EOSINOPHILS % (AUTO) 1 % (0-10); HEMATOCRIT 44 % (35-52); HEMOGLOBIN 14.3 g/dL (11.5-16.0); LYMPHOCYTES # (AUTO) 1.4 10^3/uL (1.0-4.0); LYMPHOCYTES % (AUTO) 25 % (12-44); MEAN CORPUSCULAR HEMOGLOBIN 28 pg (25-34); MEAN CORPUSCULAR HGB CONC 33 g/dL (32-36); MEAN CORPUSCULAR VOLUME 85 fL (80-99); MEAN PLATELET VOLUME 9.1 fL (9.0-12.2); MONOCYTES # (AUTO) 0.5 10^3/uL (0.0-1.0); MONOCYTES % (AUTO) 9 % (0-12); NEUTROPHILS # (AUTO) 3.6 10^3/uL (1.8-7.8); NEUTROPHILS % (AUTO) 64 % (42-75); PLATELET COUNT 243 10^3/uL (130-400); WHITE BLOOD COUNT 5.7 10^3/uL (4.3-11.0)
[2021-05-31 10:59] LABS: ALBUMIN 4.1 GM/DL (3.2-4.5); BILIRUBIN,TOTAL 0.3 MG/DL (0.1-1.0); CALCIUM 8.4 MG/DL (8.5-10.1); CREATININE SERUM 0.59 MG/DL (0.60-1.30); POTASSIUM 3.1 MMOL/L (3.6-5.0); TOTAL PROTEIN 6.4 GM/DL (6.4-8.2)
[2021-05-31] MEDS ORDERED: IMMU GLOBULIN,GAMMA (IGG) 100 ML IV SCH (11:05)
[2021-05-31] MEDS ORDERED: IMMUNE GLOBULIN,GAMMA (IGG) 200 ML IV SCH (11:05)
[2021-05-31] MEDS ORDERED: diphenhydrAMINE 25 MG TAB (BENADRYL) CANCER CENTER PO SCH (11:05)
[2021-05-31] MEDS ORDERED: ACETAMINOPHEN 500 MG TAB (TYLENOL) CANCER CTR PO SCH (11:05)
== END 2021-06-24 | disposition home or self-care (01) ==
LOC: ONC 09:42
PROVIDERS: ATTEND Internal Medicine Hematology & Oncology
DX: Z51.11 Encounter for antineoplastic chemotherapy (principal); D80.0 Hereditary hypogammaglobulinemia; J45.909 Unspecified asthma, uncomplicated; E87.6 Hypokalemia; E83.42 Hypomagnesemia; Z86.19 Personal history of other infectious and parasitic diseases; Z79.899 Other long term (current) drug therapy
CPT/HCPCS: 36415; 80053; 85025; 96365; 96366; 99213; J1569

== ENCOUNTER 2021-06-28 09:43 | Outpatient (RCR) | payer MEDICAID ==
[2021-07-07] MEDS ORDERED: POTA10CA43 PO (10:14)
[2021-07-07] MEDS ORDERED: ALBU1.25 INH (10:14)
[2021-07-07] MEDS ORDERED: COLE1TAB PO (10:14)
== END 2021-07-21 11:15 | disposition home or self-care (01) ==
LOC: ONC 09:43
PROVIDERS: ATTEND Internal Medicine Hematology & Oncology
DX: Z51.11 Encounter for antineoplastic chemotherapy (principal); D80.0 Hereditary hypogammaglobulinemia; J45.909 Unspecified asthma, uncomplicated; E87.6 Hypokalemia; E83.42 Hypomagnesemia; E66.9 Obesity, unspecified; Z86.19 Personal history of other infectious and parasitic diseases; Z79.899 Other long term (current) drug therapy
CPT/HCPCS: 96365; 96366; J1569

== ENCOUNTER 2021-07-06 05:31 | Outpatient (RCR) | payer MEDICAID ==
[~2021-07-06] VITALS: Ht 146 cm; Wt 45.4 kg
[~2021-07-06 05:31] MED LIST changes: -ACETAMINOPHEN 500 MG TAB (TYLENOL) CANCER CTR PO SCH; -IMMU GLOBULIN,GAMMA (IGG) 100 ML IV SCH; -IMMUNE GLOBULIN,GAMMA (IGG) 200 ML IV SCH; -diphenhydrAMINE 25 MG TAB (BENADRYL) CANCER CENTER PO SCH
[2021-07-07] MEDS ORDERED: POTA10CA43 PO (10:14)
[2021-07-07] MEDS ORDERED: ALBU1.25 INH (10:14)
[2021-07-07] MEDS ORDERED: COLE1TAB PO (10:14)
== END 2021-07-07 10:30 | disposition home or self-care (01) ==
LOC: PREOP 05:31 → EDSTATUS 11:00 → PREOP 07-07 10:30
PROVIDERS: ATTEND Surgery
DX: Z01.818 Encounter for other preprocedural examination (principal)

== ENCOUNTER 2021-07-13 09:11 | Day surgery (SDC) | payer MEDICAID ==
[~2021-07-13] VITALS: Ht 146 cm; Wt 45.4 kg
[2021-07-13] VITALS (10 sets, daily range): BP systolic 80–115; BP diastolic 40–82
[~2021-07-13 09:11] MED LIST changes: +ALBU1.25 INH; +COLE1TAB PO; +POTA10CA43 PO
[2021-07-13] MEDS ORDERED: 0.9% SODIUM CHLORIDE PF INJ 20 ML VIAL ONE (09:23)
[2021-07-13] MEDS ORDERED: LIDOCAINE/EPI 1%-1:200,000 (XYLOCAINE) 30 ML VIAL ONE (09:23)
[2021-07-13] MEDS ORDERED: HEParin (CENTRAL IV FLUSH) 500 UNIT/5 ML SYR ONE (09:23)
[2021-07-13] MEDS ORDERED: LACTATED RINGERS 1,000 ML IV PRN (09:30)
[2021-07-13] MEDS ORDERED: ceFAZolin 2 GM IV Premixed 50 ML IV ONE (09:30)
[2021-07-13] MEDS ORDERED: ceFAZolin 2 GM IV Premixed 50 ML ONE (09:35)
--- NOTE | 2021-07-13 09:36 | Progress Note-Pre Operative ---
Pre-Operative Progress Note H&P Reviewed The H&P was reviewed, patient examined and no changes noted. Time Seen by Provider: 09:33 Date H&P Reviewed: Jul 13, 2021 Time H&P Reviewed: 09:33 Pre-Operative Diagnosis: Venous insufficiency LUPE AVERY DO Jul 13, 2021 09:36
[2021-07-13] MEDS ORDERED: PROPOFOL INJECTION 50 ML IV ONE ×2 (09:38→10:11)
[2021-07-13] MEDS ORDERED: MIDAZOLAM 2 MG/2 ML (VERSED) VIAL ONE (09:38)
[2021-07-13] MEDS ORDERED: fentaNYL INJ 100 MCG/2 ML AMP ONE (09:39)
[2021-07-13] MEDS ORDERED: ONDANSETRON 4 MG/2 ML (SDV) Z0FRAN ONE (10:11)
--- NOTE | 2021-07-13 10:35 | Anesthesia-General Post-Op ---
MAC Patient Condition Mental Status/LOC: Same as Preop Cardiovascular: Satisfactory Nausea/Vomiting: Absent Respiratory: Satisfactory Pain: Controlled Complications: Absent Post Op Complications Complications None Follow Up Care/Instructions Patient Instructions None needed. Anesthesiology Discharge Order Discharge Order Patient is doing well, no complaints, stable vital signs, no apparent adverse anesthesia problems. No complications reported per nursing. BELLE LOPEZ CRNA Jul 13, 2021 10:35
--- NOTE | 2021-07-13 10:37 | Progress Note-Post Operative ---
Post-Operative Progess Note Surgeon (s)/Huc Ob (s) Surgeon LUPE AVERY DO Huc Ob: BRANDY Jeronimo Pre-Operative Diagnosis Venous insufficiency Post-Operative Diagnosis same Procedure & Operative Findings Date of Procedure 07/13/21 Procedure Performed/Findings PROCEDURE: Deborah-cath insertion The patient was taken to the operating suite, was prepped and draped in the sterile fashion. A surgical pause was performed. Local anesthetic was infiltrated at the clavicle and along the tract to the right anterior chest, where more local was placed so the pocket could be created. Using an 18 gauge finder needle with negative inspiration the left subclavian vein was accessed on the first attempt and dark nonpulsatile blood was withdrawn. The wire was inserted and fluoroscopy assured proper placement. The needle was removed. The regular wire was inserted and fluoroscopy assured proper placement. The wire was then secured. A #11 blade scalpel was used to make an incision over the left chest and along guidewire. Cautery was used to dissect down to the pectoral fascia. A pocket was created with blunt dissection. The dilator sheath was then advanced over the wire under fluoroscopy and the dilator and wire were removed. The Groshong catheter was inserted through the sheath and the sheath was then removed. The Groshong wire was removed. The catheter was then tunneled to the right chest pocket. Fluoroscopy was used to cut to length and this was then attached to the port which was then placed within the pocket. The port was then accessed without difficulty. It was then flushed with saline and then heparin. The subcutaneous tissues were then reapproximated using 3-0 Vicryl. Finally the skin was closed with 4-0 undyed monocryl, 3 interrupted sutures. The areas were then washed and dried. Skin Affix was placed over incision. The insertion point of the neck Skin Affix was placed over the incision. The patient tolerated the procedure well without complication and was taken to recovery room in stable condition. Anesthesia Type IV sedation by TICKET PRINTER Estimated Blood Loss Estimated blood loss (mL): scant Specimens/Packing Specimens Removed none LUPE AVERY DO Jul 13, 2021 10:37
--- NOTE | 2021-07-13 10:40 | Discharge Inst-Surgical ---
Discharge Inst-Surgical Depart Medication/Instructions New, Converted or Re-Newed RX: Other (use ibuprofen and tylenol at home for pain) Patient Instructions Follow up Appt: Make appointment for 1 week. [phone] Instructions: May shower in 24 hours, no tub bath or soaking. Use incentive spirometer at home as directed. No Smoking Skin/Wound Care: May remove bandages in am. You need to leave the Dermabond on incision it will fall off on it's own. Symptoms to Report: Appetite Changes, Extremity Discoloration, Numbness/Tingling, Swelling Increased, Bleeding Excessive, Eyesight Changes, Pain Increased, Urine Color Change, Constipation(Persistent), Fever over 101 degree F, Pain/Pressure in chest, Urinating Difficulty, Cough Up/Vomit Blood, Heart Beat Irreg/Pounding, Pain/Pressure in jaw, Cramps in feet or legs, Lightheadedness, Pain/Pressure in shoulder, Diarrhea(Persistent), Memory Changes Suddenly, Questions/Concerns, Weight gain consecutive days, Dizziness/Fainting, Nausea/Vomiting, Shortness of Breath, Weight gain over 2 pounds If questions or concerns contact your physician Or seek help at emergency department. Activity Activity as Tolerated: Yes Driving Instructions: You May Drive Diet Discharge Diet: No Restrictions Diet After 24 Hours: Clear Liquid if Nauseous If Any Problems/Questions/Issu: Contact Your Physician, Go to Emergency Room Skin/Wound Care Infection Signs and Symptoms: Increased Redness, Foul Odor of Wound, Increased Drainage, Skin Itchy or Has a Rash, Increased Swelling, Temperature Above 101 F Bathing Instructions: LUPE Ortiz DO Jul 13, 2021 10:40
[2021-07-13] MEDS ORDERED: ONDANSETRON 4 MG/2 ML (SDV) Z0FRAN IVP PRN (10:45)
[2021-07-13] MEDS ORDERED: morphine INJ 10 MG/ML 1ML (SYR OR VIAL) IVP ONE (10:45)
[2021-07-13] MEDS ORDERED: fentaNYL INJ 100 MCG/2 ML AMP IVP ONE (10:45)
[2021-07-13] MEDS ORDERED: MEPERIDINE (DEMEROL) INJ 50 MG/ML IVP ONE (10:45)
--- NOTE | 2021-07-13 11:08 | Diagnostic Imaging Report ---
INDICATION: Fluoroscopy for port placement. FINDINGS: Fluoroscopy was provided in the OR during port placement. 8 seconds of fluoroscopic time was utilized. A single image was obtained demonstrating a left chest wall port with tip overlying the SVC. IMPRESSION: Fluoroscopy during port placement. Dictated by: Dictated on workstation # [id number]
[2021-07-13] MEDS ORDERED: HYDROcodone/APAP 5 MG/325 MG (LORTAB) TAB PO ONE (12:15)
== END 2021-07-13 12:30 | disposition home or self-care (01) ==
LOC: SDC 09:11
PROVIDERS: ATTEND Surgery
DX: I87.2 Venous insufficiency (chronic) (peripheral) (principal); D83.9 Common variable immunodeficiency, unspecified; J44.9 Chronic obstructive pulmonary disease, unspecified; Z87.01 Personal history of pneumonia (recurrent); Z79.899 Other long term (current) drug therapy
CPT/HCPCS: 76000; 87081

== ENCOUNTER 2021-07-26 09:39 | Outpatient (RCR) | payer MEDICAID ==
[~2021-07-26 09:39] MED LIST changes: +ACETAMINOPHEN 500 MG TAB (TYLENOL) CANCER CTR PO SCH; +IMMU GLOBULIN,GAMMA (IGG) 100 ML IV SCH; +IMMUNE GLOBULIN,GAMMA (IGG) 200 ML IV SCH; +diphenhydrAMINE 25 MG TAB (BENADRYL) CANCER CENTER PO SCH
== END 2021-08-22 | disposition home or self-care (01) ==
LOC: ONC 09:39
PROVIDERS: ATTEND Internal Medicine Hematology & Oncology
DX: Z51.12 Encounter for antineoplastic immunotherapy (principal); Z45.2 Encounter for adjustment and management of vascular access device; D80.0 Hereditary hypogammaglobulinemia; J45.909 Unspecified asthma, uncomplicated; E87.6 Hypokalemia; E83.42 Hypomagnesemia; E66.9 Obesity, unspecified; Z79.899 Other long term (current) drug therapy
CPT/HCPCS: 96365; 96375; J1569

== ENCOUNTER 2022-05-09 08:29 | Emergency (ER) | payer MEDICAID ==
[~2022-05-09] VITALS: Ht 146 cm; Wt 47.0 kg
[~2022-05-09 08:29] MED LIST changes: -ACETAMINOPHEN 500 MG TAB (TYLENOL) CANCER CTR PO SCH; -IMMU GLOBULIN,GAMMA (IGG) 100 ML IV SCH; -IMMUNE GLOBULIN,GAMMA (IGG) 200 ML IV SCH; -diphenhydrAMINE 25 MG TAB (BENADRYL) CANCER CENTER PO SCH
--- NOTE | 2022-05-09 09:10 | ED Back Pain ---
General Chief Complaint: Back Problems Stated Complaint: LOWER BACK PAIN Nursing Triage Note: PT TO [facility] CO OF SEVERE BACK PAIN LOWER BACK, STARTED YESTERDAY, DENIES INJURY. STATES HAS HX OF GURU RA. PT STATES IGG FOR AUTOIMMUNE DISORDER Source of Information: Patient Exam Limitations: No Limitations (KRYSTAL RAYO) History of Present Illness Date Seen by Provider: May 09, 2022 Time Seen by Provider: 08:49 Initial Comments Patient is a 31 y/o F with history of rheumatoid arthritis, common variable immunodeficiency, and IBS-D who presents to the ER with her for CC of back pain which onset 1 day ago. Reports the pain is mid back and on the spine. States pain is constant, sharp, and radiates up into the neck and left hip at times. States her pain is currently a 10/10. Any movement makes it worse. Has tried Ibuprofen 800, Tylenol, hot showers, and heating pads with no improvement. Patient reports 5 years ago she fell onto some concrete hitting the same spot on her back. She never sought medical care for that incident. Denies any rash or b ruising over the area. Denies any other complaints at this time. Location: T-Spine Timing/Duration: 1 Day Severity: Moderate Pain/Injury Location: Back Method of Injury: Unknown (KRYSTAL RAYO) Allergies and Home Medications Allergies Coded Allergies: acetaminophen (Verified Allergy, Unknown, 07/07/21) ciprofloxacin (Verified Allergy, Unknown, 07/07/21) propoxyphene (Verified Allergy, Unknown, 07/07/21) Patient Home Medication List Home Medication List Reviewed: Yes (KRYSTAL RAYO) Home Medication List Reviewed: Yes (ALLISON ERICKSON MD) Albuterol Sulfate (Albuterol Sulfate) 1.25 Mg/3 Ml Vial.neb, 1.25 MG INH DAILY, (Reported) Entered as Reported by: CANDIDO WHITNEY on 07/07/21 1014 Colestipol HCl (Colestipol HCl) 1 Gm Tablet, 1 GM PO BID WITH MEALS, (Reported) Entered as Reported by: CANDIDO WHITNEY on 07/07/21 1014 Methocarbamol (Methocarbamol) 750 Mg Tablet, 750 MG PO Q8H Prescribed by: ALLISON ERICKSON on 05/09/22 0952 Potassium Chloride (Potassium Chloride) Unknown Strength Capsule.er, Unknown Dose PO DAILY, (Reported) Entered as Reported by: CANDIDO WHITNEY on 07/07/21 1014 Review of Systems Constitutional: see HPI EENTM: no symptoms reported Respiratory: no symptoms reported Cardiovascular: no symptoms reported Gastrointestinal: no symptoms reported Genitourinary: no symptoms reported Musculoskeletal: back pain (mid thoracic and to the left) Skin: no symptoms reported Psychiatric/Neurological: No Symptoms Reported (ALLISON ERICKSON MD) All Other Systems Reviewed Negative Unless Noted: Yes (ALLISON ERICKSON MD) Past Ahhsqsp-Cgszyr-Tjwvnd Hx Patient Social History Tobacco Use?: No Substance use?: No Alcohol Use?: Yes Alcohol Frequency: Once in a while Pt feels they are or have been: No (KRYSTAL RAYO) Immunizations Up To Date Tetanus Booster (TDap): Unknown First/Initial COVID19 Vaccinat: NO Second COVID19 Vaccination Manjit: NO Third COVID19 Vaccination Date: NO (KRYSTAL RAYO) Seasonal Allergies Seasonal Allergies: Yes (KRYSTAL RAYO) Past Medical History Surgery/Hospitalization HX: GURU ENRIQUEZ RA, AUTO IMMUNE DISEASE Surgeries: Yes ( tubes in ears, tongue, seed wart removed, KNEE SCOPES X2) Adenoidectomy, Gallbladder, 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, Orthopedic, Tubal Ligation Respiratory: Yes (FROM IMMUNE DEFICIENCY-USES INHALER) Asthma, Pneumonia, Chronic Bronchitis, COPD Currently Using CPAP: No Currently Using BIPAP: No Cardiac: No Neurological: No Reproductive Disorders: Yes (PELVIC PAIN) Female Reproductive Disorders: Menstrual Problems, 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 Sexually Transmitted Disease: No HIV/AIDS: No UTI-Chronic 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) Gastroesophageal Reflux, Chronic Diarrhea Musculoskeletal: Yes ( LEFT KNEE AND BACK) Rheumatoid Arthritis Endocrine: Yes (AUTO IMMUNE DEFICIENCY, CVID, GETS INFUSIONS AT [facility] ONCE A MONTH) Loss of Vision: Denies Hearing Impairment: Denies Cancer: No Psychosocial: Yes Anxiety Integumentary: No Blood Disorders: No Adverse Reaction/Blood Tranf: No (HAS HAD BLOOD TRANSFUSION WITHOUT DIFFICULTY) (KRYSTAL RAYO) Family Medical History No Pertinent Family Hx (KRYSTAL RAYO) Physical Exam Vital Signs Vital Signs - First Documented 05/09/22 08:42 Temp 36.4 Pulse 108 Resp 16 B/P (MAP) 141/102 (115) Pulse Ox 97 (ALLISON ERICKSON MD) Vital Signs Capillary Refill : Less Than 3 Seconds (KRYSTAL RAYO) Height, Weight, BMI Height: 4'9" Weight: 128lbs. 6.0oz. 58.299547bw; 22.00 BMI Method:Stated General Appearance: WD/WN, Mild Distress Neck: Full Range of Motion, Normal Inspection, Non Tender, Supple Cardiovascular: Regular Rate, Rhythm, No Murmur Respiratory: Chest Non Tender, Lungs Clear, Normal Breath Sounds, No Accessory Muscle Use, No Respiratory Distress Back: Normal Inspection, Decreased Range of Motion, Vertebral Tenderness (around T6-T12) Extremity: Other (movement of all 4 extremities seems to reproduce thoracic back pain) Neurologic/Psychiatric: Alert, No Motor/Sensory Deficits, Normal Mood/Affect Skin: Normal Color, Warm/Dry (KRYSTAL RAYO) Progress/Results/Core Measures Results/Orders My Orders Orders - ALLISON ERICKSON MD Ketorolac Injection (Toradol Injection) (05/09/22 09:15) Orphenadrine Inj (Ed Only) (Norflex Inje (05/09/22 09:15) (ALLISON ERICKSON MD) Medications Given in ED (ALLISON ERICKSON MD) Vital Signs/I&O 05/09/22 05/09/22 08:42 10:00 Temp 36.4 Pulse 108 88 Resp 16 16 B/P (MAP) 141/102 (115) 122/64 Pulse Ox 97 97 (ALLISON ERICKSON MD) Blood Pressure Mean: 115 Progress Progress Note : Time: 09:42 Progress Note Patient seen and examined by me - I have reviewed and agree with the medical students's documentation - other findings and assessment by me as follows - Patient is a petite 31yo female with a complaint of mid/lower thoracic back pain, onset 2 days ago. She states 2 days prior to this she had "deep cleaned" her house. She has a history of remote injury she never sought evaluation of (5y ago). States she woke with symptoms. Taking OTC Ibuprofen 800mg (last dose last night). No relief. Denies numbness, weakness or tingling. No loss of bowel or bladder function. No saddle anesthesia or incontinence. Movement in any direction exacerbated pain, movement of all 4 extremities exacerbated pain. no recent illness, no fevers, chills or night sweats. no chest pain or SOB. No history of IVDA. Exam remarkable for diffuse thoracic pain - bony as well as soft tissue. no overlying erythema or rashes. No focal neuro deficits. neg SLR bilaterally; DTR's 1+ bilateral patella Consideration for spinal epidural abscess/disciitis (no history of IVDA no PE to support), consideration for trauma (none reported), consideration for soft tissue infection (no PE to support). ASsesment: thoracic back strain. HOme with continued IBP and muscle relaxers. Follow up wit PCP. return precautions provided on d/s instructions. (ALLISON ERICKSON MD) Departure Impression Primary Impression: Strain of thoracic back region Disposition: 01 HOME, SELF-CARE Condition: Improved Departure-Patient Inst. Decision time for Depature: 09:48 (ALLISON ERICKSON MD) Referrals: JENARO RAMIREZ MD (PCP/Family) Primary Care Physician Patient Instructions: Back Muscle Strain (DC) Add. Discharge Instructions: Continue the Ibuprofen 800mg every 8-12 hours WITH FOOD as needed for pain. I have written you a muscle relaxer that will help with the discomfort. Use this only as necessary. Heating pad/biofreeze or other over the counter muscle rubs/ointments as directed on packaging instructions. If you have any worsening pain, especially with fever, leg weakness, loss of bowel or bladder function - please return to the Emergency Department for re- evaluation. Scripts Methocarbamol (Methocarbamol) 750 Mg Tablet 750 MG PO Q8H for Back Pain, #20 TAB Prov: ALLISON ERICKSON MD 05/09/22 Verification and Attestation of Medical Student E/M Service A medical student performed and documented this service in my presence. I reviewed and verified all information documented by the medical student and made modifications to such information, when appropriate. I personally performed the physical exam and medical decision making. Allison Erickson, May 09, 2022,09:52 (ALLISON ERICKSON MD) Copy Copies To 1: JENARO RAMIREZ MD [facility] May 09, 2022 09:10 ALLISON ERICKSON MD May 09, 2022 09:47
[2022-05-09] MEDS ORDERED: ORPHENADRINE 60 MG/2 ML (NORFLEX) AMP (ED ONLY) IM ONE (09:15)
[2022-05-09] MEDS ORDERED: KETOROLAC 30 MG/ML VIAL IM ONE (09:15)
[2022-05-09] MEDS ORDERED: METH-732 PO (09:52)
[2022-05-09 10:00] VITALS: BP 122/64
== END 2022-05-09 10:00 | disposition home or self-care (01) ==
LOC: EDUNIT# 08:29 → ER 08:32
DX: S29.012A Strain of muscle and tendon of back wall of thorax, initial encounter (principal); Z28.310 Unvaccinated for COVID-19; Z88.6 Allergy status to analgesic agent; Z88.5 Allergy status to narcotic agent; X58.XXXA Exposure to other specified factors, initial encounter
CPT/HCPCS: 99284

== ENCOUNTER 2022-08-21 08:27 | Outpatient (RCR) | payer MEDICAID ==
[~2022-08-21 08:27] MED LIST changes: +METH-732 PO; -POTA10CA43 PO; +POTA10CA44 PO
== END 2022-08-22 | disposition home or self-care (01) ==
PROVIDERS: ATTEND Orthopaedic Surgery
DX: M70.61 Trochanteric bursitis, right hip (principal)

== ENCOUNTER 2022-09-04 08:36 | Outpatient (RCR) | payer MEDICAID | END 2022-09-22 | disposition home or self-care (01) | PROVIDERS: ATTEND Orthopaedic Surgery | DX: M25.552 Pain in left hip (principal); R26.89 Other abnormalities of gait and mobility ==

== ENCOUNTER 2023-02-18 14:34 | Observation (INO) | payer MEDICAID ==
[~2023-02-18] VITALS: Ht 145 cm; Wt 45.0 kg
[~2023-02-18 14:34] MED LIST changes: -POTA10CA44 PO; +POTA10CA84 PO
--- NOTE | 2023-02-18 14:54 | ED General ---
General Chief Complaint: General Problems/Pain Stated Complaint: JOINTS LOCKED UP Source of Information: Patient Exam Limitations: No Limitations History of Present Illness Date Seen by Provider: Feb 18, 2023 Time Seen by Provider: 14:51 Initial Comments Patient is a 32-year-old female with a history of IBS, immune deficiency C VID, gastroparesis, electrolyte abnormality who presents the ED for hands locked up. This started this afternoon a little after noon. Patient states her upper extremity started to lock up. History of similar symptoms in the past secondary to electrolyte abnormality. She states she has been vomiting for the past 2 months. Recent diagnosed gastroparesis. she states she vomits at least twice a day. She is currently on oral potassium. She took 20 ml equivalent this morning and again this afternoon. Patient states she has had a history of her toes locking up as well. She reports numbness and tingling into her lower extremities this time. She is Concern for poor circulation. She denies of any chest pain, cough, sore throat, headache, dizziness. She is scheduled to follow-up with Dr. Momo HERNANDEZ for her IBS. She does take medication for IBS which she cannot recall. Currently on omeprazole. Patient denies diarrhea, headache, visual changes, facial spasming. Patient does report that she gets immunoglobulin treatment monthly by Dr. Bartlett. Allergies and Home Medications Allergies Coded Allergies: acetaminophen (Verified Allergy, Unknown, 07/07/21) ciprofloxacin (Verified Allergy, Unknown, 07/07/21) propoxyphene (Verified Allergy, Unknown, 07/07/21) Patient Home Medication List Home Medication List Reviewed: Yes Alosetron HCl (Alosetron HCl) 0.5 Mg Tablet, 0.5 MG PO BID, (Reported) Entered as Reported by: TADEO ZAMBRANO on 02/19/231312 Last Action: Reviewed Calcium Carbonate (Calcium Carbonate) 500 Mg Calcium (1250 Mg) Tablet, 500 MG PO DAILY Prescribed by: UMU PERLA on 02/19/231555 Magnesium Oxide (Magnesium Oxide) 400 Mg Tablet, 400 MG PO DAILY Prescribed by: UMU PERLA on 02/19/231555 Multivitamin (Multivitamin) 1 Each Tablet, 1 EACH PO DAILY, (Reported) Entered as Reported by: TADEO ZAMBRANO on 02/19/231312 Last Action: Reviewed Omeprazole (Omeprazole) 40 Mg Capsule., 40 MG PO BID, (Reported) Entered as Reported by: TADEO ZAMBRANO on 02/19/23 1313 Last Action: Reviewed Potassium Chloride (Potassium Chloride) 10 Meq Capsule.er, 10 MEQ PO DAILY Prescribed by: UMU PERLA on 02/19/23 1556 Review of Systems Review of Systems Constitutional: No chills, No diaphoresis EENTM: No ear pain, No blurred vision Respiratory: No cough, No dyspnea on exertion Cardiovascular: No chest pain Gastrointestinal: No abdominal pain, No diarrhea, No nausea; vomiting Genitourinary: No decreased output, No discharge Musculoskeletal: No back pain; joint pain, joint swelling, other (hands locked) All Other Systems Reviewed Negative Unless Noted: Yes Past Ezabfyq-Odeehx-Mijewd Hx Patient Social History Tobacco Use?: No Substance use?: No Alcohol Use?: No Pt feels they are or have been: No Immunizations Up To Date Tetanus Booster (TDap): Unknown First/Initial COVID19 Vaccinat: NO Second COVID19 Vaccination Manjit: NO Third COVID19 Vaccination Date: NO Seasonal Allergies Seasonal Allergies: Yes Past Medical History Surgery/Hospitalization HX: HYST, JULYUDMILA RA, AUTO IMMUNE DISEASE, TUBAL, BG, IBS, COPD, GASTROPORESIS Surgeries: Yes ( tubes in ears, tongue, seed wart removed, KNEE SCOPES X2) Adenoidectomy, Gallbladder, 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, Orthopedic, Tubal Ligation Respiratory: Yes (FROM IMMUNE DEFICIENCY-USES INHALER) Asthma, Pneumonia, Chronic Bronchitis, COPD Currently Using CPAP: No Currently Using BIPAP: No Cardiac: No Neurological: No Reproductive Disorders: Yes (PELVIC PAIN) Female Reproductive Disorders: Menstrual Problems, Ovarian 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 Sexually Transmitted Disease: No HIV/AIDS: No UTI-Chronic 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) Gastroesophageal Reflux, Chronic Diarrhea Musculoskeletal: Yes ( LEFT KNEE AND BACK) Rheumatoid Arthritis Endocrine: Yes (AUTO IMMUNE DEFICIENCY, CVID, GETS INFUSIONS AT [facility]ER [facility] ONCE A MONTH) Loss of Vision: Denies Hearing Impairment: Denies Cancer: No Psychosocial: Yes Anxiety Integumentary: No Blood Disorders: No Adverse Reaction/Blood Tranf: No (HAS HAD BLOOD TRANSFUSION WITHOUT DIFFICULTY) Family Medical History No Pertinent Family Hx Physical Exam Vital Signs Vital Signs - First Documented 02/18/23 14:40 Temp 37.0 Pulse 79 Resp 14 B/P (MAP) 123/87 (99) Pulse Ox 100 O2 Delivery Room Air Capillary Refill : Height, Weight, BMI Height: 4'9" Weight: 128lbs. 6.0oz. 58.425822fy; 22.00 BMI Method:Stated General Appearance: No Apparent Distress, WD/WN Eyes: Bilateral Eye Normal Inspection, Bilateral Eye PERRL, Bilateral Eye EOMI HEENT: PERRL/EOMI, TMs Normal, Normal ENT Inspection, Pharynx Normal Neck: Full Range of Motion, Normal Inspection, Non Tender, Supple Respiratory: Chest Non Tender, Lungs Clear, Normal Breath Sounds, No Accessory Muscle Use, No Respiratory Distress Cardiovascular: Regular Rate, Rhythm, No Edema, No Gallop, No JVD Gastrointestinal: Normal Bowel Sounds, No Organomegaly, No Pulsatile Mass, Non Tender Extremity: Normal Capillary Refill, Normal Range of Motion, Non Tender, Other ( Hands contracted and locked.) Neurologic/Psychiatric: Alert, Oriented x3, No Motor/Sensory Deficits, Normal 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, 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 Norm as Tested Skin: Normal Color, Warm/Dry Progress/Results/Core Measures Suspected Sepsis SIRS Temperature: Pulse: Respiratory Rate: Laboratory Tests 02/18/23 15:00: White Blood Count 3.8L Blood Pressure / Mean: Laboratory Tests 02/18/23 15:00: Creatinine 0.38L, Platelet Count 187, Total Bilirubin 0.2 Results/Orders Lab Results Laboratory Tests Test 02/18/23 15:00 Range/Units White Blood Count 3.8 L 4.3-11.0 10^3/uL Red Blood Count 3.93 3.80-5.11 10^6/uL Hemoglobin 12.3 11.5-16.0 g/dL Hematocrit 37 35-52 % Mean Corpuscular Volume 94 80-99 fL Mean Corpuscular Hemoglobin 31 25-34 pg Mean Corpuscular Hemoglobin Concent 33 32-36 g/dL Red Cell Distribution Width 14.8 H 10.0-14.5 % Platelet Count 187 130-400 10^3/uL Mean Platelet Volume 9.8 9.0-12.2 fL Immature Granulocyte % (Auto) 0 % Neutrophils (%) (Auto) 54 42-75 % Lymphocytes (%) (Auto) 33 12-44 % Monocytes (%) (Auto) 11 0-12 % Eosinophils (%) (Auto) 1 0-10 % Basophils (%) (Auto) 1 0-10 % Neutrophils # (Auto) 2.0 1.8-7.8 10^3/uL Lymphocytes # (Auto) 1.3 1.0-4.0 10^3/uL Monocytes # (Auto) 0.4 0.0-1.0 10^3/uL Eosinophils # (Auto) 0.0 0.0-0.3 10^3/uL Basophils # (Auto) 0.0 0.0-0.1 10^3/uL Immature Granulocyte # (Auto) 0.0 0.0-0.1 10^3/uL Sodium Level 142 135-145 MMOL/L Potassium Level 2.5 *L 3.6-5.0 MMOL/L Chloride Level 118 H 98-107 MMOL/L Carbon Dioxide Level 16 L 21-32 MMOL/L Anion Gap 8 5-14 MMOL/L Blood Urea Nitrogen 5 L 7-18 MG/DL Creatinine 0.38 L 0.60-1.30 MG/DL Estimat Glomerular Filtration Rate 137 BUN/Creatinine Ratio 13 Glucose Level 65 L 70-105 MG/DL Calcium Level 4.6 *L 8.5-10.1 MG/DL Corrected Calcium 6.4 L 8.5-10.1 MG/DL Magnesium Level 0.6 *L 1.6-2.4 MG/DL Total Bilirubin 0.2 0.1-1.0 MG/DL Aspartate Amino Transf (AST/SGOT) 32 5-34 U/L Alanine Aminotransferase (ALT/SGPT) 39 0-55 U/L Alkaline Phosphatase 41 40-136 U/L Total Protein 3.3 L 6.4-8.2 GM/DL Albumin 1.8 L 3.2-4.5 GM/DL My Orders Orders - EILEEN TRINH Cbc With Automated Diff (02/18/23 14:49) Comprehensive Metabolic Panel (02/18/23 14:49) Magnesium (02/18/23 14:49) Ekg Tracing (02/18/23 14:49) Iv/Invasive Line Insertion .IV INSERT (02/18/23 14:49) Ua Culture If Indicated (02/18/23 14:49) Calcium Gluconate 1gm Ivpb (Calcium Gluc (02/18/23 15:26) Potassium Cl 10meq/50ml Ivpb (Kcl 10 Meq (02/18/23 15:45) Potassium Chloride (Tablet) (Potassium C (02/18/23 15:45) Magnesium 1 Gm/100 Ml Ivpb (Magnesium 1 (02/18/23 15:39) Ns Iv 1000 Ml (Ns Iv 1000 Ml) (02/18/23 15:40) Ed Admission (Communication) (02/18/23 15:47) Medications Given in ED Current Medications Medications Dose Ordered Sig/Gus Route Start Time Stop Time Status Last Admin Dose Admin Potassium Chloride 40 meq ONCE ONCE PO 02/18/23 15:45 02/18/23 15:46 DC 02/18/23 15:40 40 MEQ Vital Signs/I&O 02/18/23 14:40 Temp 37.0 Pulse 79 Resp 14 B/P (MAP) 123/87 (99) Pulse Ox 100 O2 Delivery Room Air Capillary Refill : ECG Comment Sinus rhythm with sinus arrhythmia, low QRS voltage in pericardial leads. 72 bpm, QRS duration 85 MS, QTc 384 MS. Departure Communication (PCP) History of immune deficiency C VID receives infusion monthly by Dr. Bartlett, COPD, IBS who presents to the ED for upper extremity locking up. On arrival she has a positive Trousseau sign bilateral. No lower extremity cramping or locking. Patient with paresthesia. Good cap refill less than 2 throughout. Generalized lab work with magnesium urinalysis and EKG was obtained. EKG shows sinus rhythm with sinus arrhythmia at 72 bpm. Low QRS voltage. No prolonged QT or widening of the QRS. No prolonged or shortened CO interval. No U waves. hematology showed white blood count 3.8. Chemistry showed potassium of 2.5 with low kidney function. Magnesium 0.6, calcium 4.6, corrected calcium 6.4. She states she has been vomiting for the past 2 months secondary to her IBS. She is currently on medication for her IBS which she cannot recall. Vomiting 2-3 times a day. Few episodes of diarrhea. Denies any bloody mucousy stool. Soft abdomen. No current tenderness suggesting surgical abdomen.. No vomiting or diarrhea here. Offered Zofran she refused. She was given a dose of calcium gluconate 1 g. Started on 2 g magnesium sulfate IV over a hour. She did receive 40 ml equivalent of oral potassium and started on 10 mEq IV potassium. She did take 40 mEq of potassium earlier today. Due to the significantly low electrolyte and currently symptomatic patient will be admitted. Patient was discussed with Dr. Barker who agreed to accept patient. Patient states her hand pain appears to be improving. Less contracted at this time. Impression Primary Impression: Hypocalcemia Additional Impressions: Hypomagnesemia Hypokalemia Disposition: ADMITTED INPATIENT Condition: Stable Admissions Decision to Admit Reason: Admit from ER (General) Decision to Admit/Date: Feb 18, 2023 Time/Decision to Admit Time: 15:47 Departure-Patient Inst. Referrals: BRAYAN MELTON MD (PCP) Primary Care Physician Scripts Potassium Chloride (Potassium Chloride) 10 Meq Capsule.er 10 MEQ PO DAILY for 30 Days, #30 CAP Prov: UMU PERLA MD 02/19/23 Magnesium Oxide (Magnesium Oxide) 400 Mg Tablet 400 MG PO DAILY for 30 Days, #30 TAB Prov: UMU PERLA MD 02/19/23 Calcium Carbonate (Calcium Carbonate) 500 Mg Calcium (1250 Mg) Tablet 500 MG PO DAILY for 30 Days, #30 TAB Prov: UMU PERLA MD 02/19/23 EILEEN TRINH Feb 18, 2023 14:54
[2023-02-18 15:16] LABS: BASOPHILS % (AUTO) 1 % (0-10); EOSINOPHILS % (AUTO) 1 % (0-10); HEMATOCRIT 37 % (35-52); HEMOGLOBIN 12.3 g/dL (11.5-16.0); LYMPHOCYTES # (AUTO) 1.3 10^3/uL (1.0-4.0); LYMPHOCYTES % (AUTO) 33 % (12-44); MEAN CORPUSCULAR HEMOGLOBIN 31 pg (25-34); MEAN CORPUSCULAR HGB CONC 33 g/dL (32-36); MEAN CORPUSCULAR VOLUME 94 fL (80-99); MEAN PLATELET VOLUME 9.8 fL (9.0-12.2); MONOCYTES # (AUTO) 0.4 10^3/uL (0.0-1.0); MONOCYTES % (AUTO) 11 % (0-12); NEUTROPHILS % (AUTO) 54 % (42-75); PLATELET COUNT 187 10^3/uL (130-400); WHITE BLOOD COUNT 3.8 10^3/uL (4.3-11.0)
[2023-02-18 15:24] LABS: ALBUMIN 1.8 GM/DL (3.2-4.5)
[2023-02-18 15:26] LABS: TOTAL PROTEIN 3.3 GM/DL (6.4-8.2)
[2023-02-18] MEDS ORDERED: CALCIUM GLUCONATE 1GM IVPB 100 ML IV STA (15:26)
[2023-02-18 15:28] LABS: BILIRUBIN,TOTAL 0.2 MG/DL (0.1-1.0)
[2023-02-18 15:30] LABS: CREATININE SERUM 0.38 MG/DL (0.60-1.30)
[2023-02-18 15:31] LABS: POTASSIUM 2.5 MMOL/L (3.6-5.0)
[2023-02-18 15:32] LABS: CALCIUM 4.6 MG/DL (8.5-10.1)
[2023-02-18 15:38] LABS: MAGNESIUM 0.6 MG/DL (1.6-2.4)
[2023-02-18] MEDS ORDERED: MAGNESIUM 1 GM/100 ML IVPB 100 ML IV STA (15:39)
[2023-02-18] MEDS ORDERED: NS IV 1000 ML 1,000 ML IV STA (15:40)
[2023-02-18] MEDS ORDERED: POTASSIUM CL 10MEQ/50ML IVPB 50 ML IV ONE (15:45)
[2023-02-18] MEDS ORDERED: POTASSIUM CHLORIDE 20 MEQ TABLET PO ONE ×2 (15:45→21:45)
[2023-02-18] MEDS ORDERED: MAGNESIUM 1 GM/100 ML IVPB 100 ML IV ONE (16:28)
[2023-02-18] MEDS ORDERED: NS IV 500 ML 500 ML IV PRN (17:00)
[2023-02-18] MEDS ORDERED: BISACODYL 10 MG SUPPOSITORY PR PRN (17:00)
[2023-02-18] MEDS ORDERED: CALCIUM CARBONATE 500 MG CHEW TABLET PO PRN (17:00)
[2023-02-18] MEDS ORDERED: MELATONIN 3 MG TABLET PO PRN (17:00)
[2023-02-18] MEDS ORDERED: ANTACID SUSPENSION 30 ML UDC PO PRN (17:00)
[2023-02-18 17:41] LABS: POTASSIUM 3.1 MMOL/L (3.6-5.0)
[2023-02-18 17:42] LABS: CALCIUM 6.6 MG/DL (8.5-10.1)
[2023-02-18] MEDS: POTASSIUM CHLORIDE 20 MEQ TABLET PO SCH (17:45)
[2023-02-18 17:46] LABS: CREATININE SERUM 0.52 MG/DL (0.60-1.30)
[2023-02-18 17:48] LABS: MAGNESIUM 2.2 MG/DL (1.6-2.4)
[2023-02-18 18:41] LABS: BACTERIA,URINE NEGATIVE /HPF; BILIRUBIN,URINE NEGATIVE (NEGATIVE); CLARITY,URINE CLEAR; COLOR,URINE YELLOW; GLUCOSE, URINE (UA) NEGATIVE (NEGATIVE); KETONES,URINE NEGATIVE (NEGATIVE); LEUKOCYTE ESTERASE ,URINE NEGATIVE (NEGATIVE); NITRITE,URINE NEGATIVE (NEGATIVE); PROTEIN,URINE NEGATIVE (NEGATIVE); SQUAMOUS EPITHELIAL CELL,UR RARE /HPF; WBC,URINE RARE /HPF
[2023-02-18] MEDS: ONDANSETRON INJECTION 4 MG/2 ML (SDV) IV PRN (18:43)
[2023-02-18] MEDS: ACETAMINOPHEN 325 MG TABLET PO PRN ×2 (18:44→23:32)
[2023-02-18 19:21] VITALS: BP 107/71
[2023-02-18] MEDS ORDERED: CALCIUM CARBONATE 500 MG CHEW TABLET ONE (19:55)
[2023-02-18 23:10] VITALS: BP 109/77
[2023-02-19 03:35] VITALS: BP 94/59
[2023-02-19] MEDS: ACETAMINOPHEN 325 MG TABLET PO PRN (05:27)
[2023-02-19 05:43] LABS: HEMATOCRIT 34 % (35-52); HEMOGLOBIN 11.1 g/dL (11.5-16.0); MEAN CORPUSCULAR HEMOGLOBIN 31 pg (25-34); MEAN CORPUSCULAR HGB CONC 33 g/dL (32-36); MEAN CORPUSCULAR VOLUME 94 fL (80-99); MEAN PLATELET VOLUME 9.7 fL (9.0-12.2); PLATELET COUNT 155 10^3/uL (130-400); WHITE BLOOD COUNT 3.2 10^3/uL (4.3-11.0)
[2023-02-19 05:59] LABS: ALBUMIN 2.1 GM/DL (3.2-4.5); POTASSIUM 4.3 MMOL/L (3.6-5.0)
[2023-02-19 06:00] LABS: CALCIUM 6.9 MG/DL (8.5-10.1)
[2023-02-19] MEDS ORDERED: POTASSIUM CL 10MEQ/50ML IVPB 50 ML IV SCH (06:00)
[2023-02-19] MEDS ORDERED: MAGNESIUM 1 GM/100 ML IVPB 100 ML IV SCH (06:00)
[2023-02-19] MEDS ORDERED: POTASSIUM BICARB 20 MEQ effervescent TABLET PO SCH (06:00)
[2023-02-19 06:01] LABS: TOTAL PROTEIN 3.8 GM/DL (6.4-8.2)
[2023-02-19 06:03] LABS: BILIRUBIN,TOTAL 0.2 MG/DL (0.1-1.0)
[2023-02-19 06:04] LABS: PHOSPHORUS 2.4 MG/DL (2.3-4.7)
[2023-02-19 06:05] LABS: CREATININE SERUM 0.49 MG/DL (0.60-1.30)
[2023-02-19] MEDS: POTASSIUM CHLORIDE 20 MEQ TABLET PO SCH (06:06)
[2023-02-19 06:08] LABS: MAGNESIUM 1.5 MG/DL (1.6-2.4)
[2023-02-19] MEDS: MAGNESIUM 1 GM/100 ML IVPB 100 ML IV SCH ×3 (06:36→08:33)
[2023-02-19] MEDS: ONDANSETRON INJECTION 4 MG/2 ML (SDV) IV PRN (06:40)
[2023-02-19 08:00] VITALS: BP 99/66
[2023-02-19 12:15] VITALS: BP 99/66
[2023-02-19] MEDS ORDERED: SUMAtriptan INJECTION 6 MG/0.5 ML SQ NR (12:30)
[2023-02-19] MEDS ORDERED: OMEP40CA6 PO (13:13)
[2023-02-19] MEDS ORDERED: ALOS0.5T2 PO (13:13)
[2023-02-19] MEDS ORDERED: MULT-1136 PO (13:13)
[2023-02-19] MEDS ORDERED: CALC500T64 PO (15:56)
[2023-02-19] MEDS ORDERED: POTA10CA84 PO (15:56)
[2023-02-19] MEDS ORDERED: MAGN400T7 PO (15:56)
[2023-02-19 16:13] VITALS: BP 108/59
[2023-02-19 17:46] VITALS: BP 108/59
--- NOTE | 2023-02-19 21:27 | Short Stay Summary-Hospitalist ---
History of Present Illness HPI/Chief Complaint Maite Pina is a 32 year old female who presented with muscle spasms. She has been having diarrhea. She also reports nausea and vomiting. She was recently diagnosed with gastroparesis. She has been unable to tolerate Reglan. She has not been able to eat or drink much. She has a history of CVID and receives monthly IVIG via a left chest port. Source: patient Exam Limitations: no limitations Date Seen 02/19/23 Time Seen by a Provider: 10:10 Attending Physician Britt Walker MD PCP Admitting Physician: Iva Barker MD Attending Physician: Umu Perla MD Referring Physician Date of Admission Feb 18, 2023 at 16:23 Home Medications & Allergies Home Medications Reviewed patient Home Medication Reconciliation performed by pharmacy medication reconciliations cryptological technician and/or nursing. Patients Allergies have been reviewed. Allergies Allergies Coded Allergies acetaminophen (Verified Allergy, Unknown, 07/07/21) ciprofloxacin (Verified Allergy, Unknown, 07/07/21) propoxyphene (Verified Allergy, Unknown, 07/07/21) Past Uwsensc-Ektwgy-Btgdxd Hx Patient Social History Tobacco Use?: No Use of E-Cig and/or Vaping dev: No Substance use?: No Alcohol Use?: No Pt feels they are or have been: No Immunizations Up To Date First/Initial COVID19 Vaccinat: NO Second COVID19 Vaccination Manjit: NO Tetanus Booster (TDap): Unknown Date of Pneumonia Vaccine: Sep 17, 2011 Seasonal Allergies Seasonal Allergies: Yes Current Status status: No status: No Advance Directives: No Communicates: Verbally Primary Language: American Preferred Spoken Language: American Is interpretation needed?: No Implanted or Applied Medical D: Port-a-cath Past Medical History Surgeries: Adenoidectomy, Gallbladder, 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, Orthopedic, Tubal Ligation Asthma, Pneumonia, Chronic Bronchitis, COPD Currently Using CPAP: No Currently 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 Sexually Transmitted Disease: No HIV/AIDS: No UTI-Chronic Gastroesophageal Reflux, Chronic Diarrhea Rheumatoid Arthritis Loss of Vision: Denies Hearing Impairment: Denies Anxiety Blood Disorders: No Adverse Reaction/Blood Tranf: No (HAS HAD BLOOD TRANSFUSION WITHOUT DIFFICULTY) Family Medical History No Pertinent Family Hx Review of Systems Constitutional: no symptoms reported Respiratory: no symptoms reported Cardiovascular: no symptoms reported Gastrointestinal: no symptoms reported Physical Exam Physical Exam Vital Signs Vital Signs - First Documented 02/18/23 14:40 Temp 37.0 Pulse 79 Resp 14 B/P (MAP) 123/87 (99) Pulse Ox 100 O2 Delivery Room Air Capillary Refill : Height, Weight, BMI Height: 4'9" Weight: 128lbs. 6.0oz. [id number]; 21.40 BMI Method:Stated General Appearance: No Apparent Distress, Thin Eyes: Bilateral Eye Normal Inspection, Bilateral Eye PERRL, Bilateral Eye EOMI HEENT: PERRL/EOMI, Pharynx Normal Neck: Normal Inspection, Supple Respiratory: Lungs Clear, Normal Breath Sounds, No Respiratory Distress Cardiovascular: Regular Rate, Rhythm, No Edema, No Murmur Gastrointestinal: Normal Bowel Sounds, Non Tender, Soft Extremity: Normal Inspection, Non Tender Neurologic/Psychiatric: Alert, Oriented x3, No Motor/Sensory Deficits, Normal Mood/Affect Skin: Normal Color, Warm/Dry Results Results/Procedures Labs Laboratory Tests 02/18/23 15:00 02/18/23 17:26 02/19/23 05:34 Patient resulted labs reviewed. Short Stay Diagnosis Discharge Diagnosis-Short Stay Admission Diagnosis Hypocalcemia Final Discharge Diagnosis Hypocalcemia Conclusion Plan Hypocalcemia Hypokalemia Hypomagnesemia Electrolytes replaced and improved Begin calcium, magnesium, and potassium replacement Repeat labs later this week Follow up with Dr. Walker Gastroparesis Follow up with GI Consider alternative treatments Diagnosis/Problems Diagnosis/Problems (1) Hypocalcemia Status: Acute (2) Hypokalemia Status: Acute (3) Hypomagnesemia Status: Acute (4) Gastroparesis Status: Chronic UMU PERLA MD Feb 19, 2023 21:27
== END 2023-02-19 18:26 | disposition home or self-care (01) ==
LOC: EDUNIT# 14:34 → ER 14:37 → 4TH 16:23 → UNDOADMOB 16:23 → 4TH 17:37 → UNDODISOB 02-19 18:26
PROVIDERS: ADMIT Family Medicine; ATTEND Internal Medicine
DX: E83.51 Hypocalcemia (principal); M62.838 Other muscle spasm; R19.7 Diarrhea, unspecified; E87.6 Hypokalemia; E83.42 Hypomagnesemia; K31.84 Gastroparesis; Z28.310 Unvaccinated for COVID-19; Z79.899 Other long term (current) drug therapy
CPT/HCPCS: 36415; 80048; 80053; 81000; 83735; 84100; 85025; 85027; 93005; 96366; 96372; 96375; 96376; G0378

== ENCOUNTER 2023-02-23 16:52 | Emergency (ER) | payer MEDICAID ==
[~2023-02-23] VITALS: Ht 144.8 cm; Wt 40.8 kg
[~2023-02-23 16:52] MED LIST changes: +ALOS0.5T2 PO; +CALC500T64 PO; +MAGN400T7 PO; +MULT-1136 PO; +OMEP40CA6 PO
--- NOTE | 2023-02-23 17:12 | ED Lower Extremity ---
General Stated Complaint: LEFT LEG SWELLING/TINGLING Source: patient Exam Limitations: no limitations History of Present Illness Date Seen by Provider: Feb 23, 2023 Time Seen by Provider: 17:08 Initial Comments Patient is a 32-year-old female with a history of IBS, immune deficiency C VID, gastroparesis, abnormal electrolyte who presents to the ED for tingling in her lower extremities bilateral. Symptoms over the past 2 months. She reports numbness and tingling. She is concerned she developed some swelling in her ankles bilateral. She denies of any specific injury, redness or bruising. She states her extremities feel cool. History of smoking. Denies history of diabetes. Patient denies history of RA, gout. Denies of any specific injury. She was recently admitted for electrolyte abnormality. She is concern for swelling in her ankles and feet over the past 2 to 3 days. Denies fever, chills, dysuria, hematuria, decreased urine output, chest pain, cough, shortness of breath, recent travels or surgeries. Allergies and Home Medications Allergies Coded Allergies: acetaminophen (Verified Allergy, Unknown, 07/07/21) ciprofloxacin (Verified Allergy, Unknown, 07/07/21) propoxyphene (Verified Allergy, Unknown, 07/07/21) Patient Home Medication List Home Medication List Reviewed: Yes Alosetron HCl (Alosetron HCl) 0.5 Mg Tablet, 0.5 MG PO BID, (Reported) Entered as Reported by: TADEO ZAMBRANO on 02/19/23 131 Calcium Carbonate (Calcium Carbonate) 500 Mg Calcium (1250 Mg) Tablet, 500 MG PO DAILY Prescribed by: UMU PERLA on 02/19/23 155 Gabapentin (Neurontin) 300 Mg Capsule, 300 MG PO TID Prescribed by: PIPO DEL ANGEL on 02/23/232008 Magnesium Oxide (Magnesium Oxide) 400 Mg Tablet, 400 MG PO DAILY Prescribed by: UMU PERLA on 02/19/23 155 Multivitamin (Multivitamin) 1 Each Tablet, 1 EACH PO DAILY, (Reported) Entered as Reported by: TADEO ZAMBRANO on 02/19/23 131 Omeprazole (Omeprazole) 40 Mg Capsule.dr, 40 MG PO BID, (Reported) Entered as Reported by: TADEO ZAMBRANO on 02/19/23 131 Potassium Chloride (Potassium Chloride) 10 Meq Capsule.er, 10 MEQ PO DAILY Prescribed by: UMU PERLA on 02/19/23 1556 Review of Systems Constitutional: No chills, No diaphoresis EENTM: No ear pain, No blurred vision, No double vision Respiratory: No cough, No dyspnea on exertion Cardiovascular: No chest pain Gastrointestinal: No abdominal pain, No diarrhea, No nausea, No vomiting Genitourinary: No decreased output, No discharge Musculoskeletal: No back pain, No joint pain; joint swelling, muscle pain Skin: No change in color, No change in hair/nails All Other Systems Reviewed Negative Unless Noted: Yes Past Qqrvnyd-Zzracf-Fitkri Hx Immunizations Up To Date Tetanus Booster (TDap): Unknown First/Initial COVID19 Vaccinat: NO Second COVID19 Vaccination Manjit: NO Third COVID19 Vaccination Date: NO Seasonal Allergies Seasonal Allergies: Yes Past Medical History Surgery/Hospitalization HX: HYST, GURU RA, AUTO IMMUNE DISEASE, TUBAL, BG, IBS, COPD, GASTROPORESIS Surgeries: Yes ( tubes in ears, tongue, seed wart removed, KNEE SCOPES X2) Adenoidectomy, Gallbladder, 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, Orthopedic, Tubal Ligation Respiratory: Yes (FROM IMMUNE DEFICIENCY-USES INHALER) Asthma, Pneumonia, Chronic Bronchitis, COPD Currently Using CPAP: No Currently Using BIPAP: No Cardiac: No Neurological: No Reproductive Disorders: Yes (PELVIC PAIN) Female Reproductive Disorders: Menstrual Problems, 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: 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 Sexually Transmitted Disease: No HIV/AIDS: No UTI-Chronic Gastrointestinal: Yes (SEEING LIAISON OFFICER) Gastroesophageal Reflux, Chronic Diarrhea Musculoskeletal: Yes ( LEFT KNEE AND BACK) Rheumatoid Arthritis Endocrine: Yes (AUTO IMMUNE DEFICIENCY, CVID, GETS INFUSIONS AT [facility] ONCE A MONTH) Loss of Vision: Denies Hearing Impairment: Denies Cancer: No Psychosocial: Yes Anxiety Integumentary: No Blood Disorders: No Adverse Reaction/Blood Tranf: No (HAS HAD BLOOD TRANSFUSION WITHOUT DIFFICULTY) Family Medical History No Pertinent Family Hx Physical Exam Vital Signs Vital Signs - First Documented 02/23/23 02/23/23 17:00 20:14 Temp 37.0 Pulse 79 Resp 18 B/P (MAP) 124/71 (88) Pulse Ox 97 O2 Delivery Room Air Capillary Refill : Height, Weight, BMI Height: 4'9" Weight: 128lbs. 6.0oz. 58.694623cc; 21.40 BMI Method:Stated General Appearance: WD/WN, no apparent distress HEENT: PERRL/EOMI, normal ENT inspection, TMs normal, pharynx normal Neck: non-tender, full range of motion, supple Cardiovascular: regular rate, rhythm, no edema, no gallop, no JVD Respiratory: chest non-tender, lungs clear, normal breath sounds, no respiratory distress, no accessory muscle use Gastrointestinal: normal bowel sounds, non tender, soft, no organomegaly Back: normal inspection, no CVA tenderness, no vertebral tenderness Hips: bilateral hip non-tender, bilateral hip normal inspection, bilateral hip normal range of motion Legs: bilateral leg non-tender, bilateral leg normal inspection, bilateral leg normal range of motion Knees: bilateral knee non-tender, bilateral knee normal inspection, bilateral knee no evidence of injury Ankles: bilateral ankle non-tender, bilateral ankle normal inspection, bilatera l ankle normal range of motion Feet: bilateral foot non-tender, bilateral foot normal inspection, bilateral foot normal range of motion, bilateral foot other (Neurovascular intact bilateral lower extremities.) 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 tested, no motor/sensory deficits, alert, normal mood/affect, oriented x 3 Skin: normal color, warm/dry Progress/Results/Core Measures Results/Orders Lab Results Laboratory Tests Test 02/23/23 17:19 02/23/23 19:37 Range/Units White Blood Count 3.5 L 4.3-11.0 10^3/uL Red Blood Count 3.76 L 3.80-5.11 10^6/uL Hemoglobin 11.7 11.5-16.0 g/dL Hematocrit 35 35-52 % Mean Corpuscular Volume 94 80-99 fL Mean Corpuscular Hemoglobin 31 25-34 pg Mean Corpuscular Hemoglobin Concent 33 32-36 g/dL Red Cell Distribution Width 14.6 H 10.0-14.5 % Platelet Count 185 130-400 10^3/uL Mean Platelet Volume 9.6 9.0-12.2 fL Immature Granulocyte % (Auto) 0 % Neutrophils (%) (Auto) 41 L 42-75 % Lymphocytes (%) (Auto) 45 H 12-44 % Monocytes (%) (Auto) 12 0-12 % Eosinophils (%) (Auto) 1 0-10 % Basophils (%) (Auto) 1 0-10 % Neutrophils # (Auto) 1.4 L 1.8-7.8 10^3/uL Lymphocytes # (Auto) 1.6 1.0-4.0 10^3/uL Monocytes # (Auto) 0.4 0.0-1.0 10^3/uL Eosinophils # (Auto) 0.0 0.0-0.3 10^3/uL Basophils # (Auto) 0.0 0.0-0.1 10^3/uL Immature Granulocyte # (Auto) 0.0 0.0-0.1 10^3/uL Erythrocyte Sedimentation Rate 3 0-20 MM/HR Sodium Level 139 135-145 MMOL/L Potassium Level 3.1 L 3.1 L 3.6-5.0 MMOL/L Chloride Level 107 98-107 MMOL/L Carbon Dioxide Level 22 21-32 MMOL/L Anion Gap 10 5-14 MMOL/L Blood Urea Nitrogen 6 L 7-18 MG/DL Creatinine 0.61 0.60-1.30 MG/DL Estimat Glomerular Filtration Rate 123 BUN/Creatinine Ratio 10 Glucose Level 91 70-105 MG/DL Calcium Level 7.5 L 8.5-10.1 MG/DL Corrected Calcium 8.7 8.5-10.1 MG/DL Magnesium Level 1.2 L 1.9 1.6-2.4 MG/DL Total Bilirubin 0.2 0.1-1.0 MG/DL Aspartate Amino Transf (AST/SGOT) 38 H 5-34 U/L Alanine Aminotransferase (ALT/SGPT) 52 0-55 U/L Alkaline Phosphatase 70 40-136 U/L C-Reactive Protein High Sensitivity 0.26 0.00-0.50 MG/DL Total Protein 4.3 L 6.4-8.2 GM/DL Albumin 2.5 L 3.2-4.5 GM/DL Thyroid Stimulating Hormone (TSH) 3.39 0.35-4.94 UIU/ML My Orders Orders - EILEEN TRINH Cbc With Automated Diff (02/23/23 17:05) Comprehensive Metabolic Panel (02/23/23 17:05) Magnesium (02/23/23 17:05) Iv/Invasive Line Insertion .IV INSERT (02/23/23 17:05) Ed Iv/Invasive Line Start (02/23/23 17:41) Hs C Reactive Protein (02/23/23 17:50) Erythrocyte Sedimentation Rate (02/23/23 17:50) Magnesium 1 Gm/100 Ml Ivpb (Magnesium 1 (02/23/23 18:15) Potassium Chloride (Tablet) (Potassium C (02/23/23 18:15) Ondansetron Injection (Ondansetron Inj (02/23/23 18:45) Ondansetron Injection (Ondansetron Inj (02/23/23 18:37) Thyroid Stimulating Hormone (02/23/23 19:09) Magnesium (02/23/23 19:21) Potassium (02/23/23 19:21) Medications Given in ED Vital Signs/I&O 02/23/23 02/23/23 17:00 20:14 Temp 37.0 Pulse 79 71 Resp 18 18 B/P (MAP) 124/71 (88) 118/69 Pulse Ox 97 O2 Delivery Room Air Room Air Departure Communication (PCP) Reviewed previous ER visits, H&P, lab testing. Differential diagnosis, paresthesia, electrolyte abnormality, inflammatory disease. On exam of the lower extremities, I noted no significant swelling, bruising or redness. She had no joint tenderness, calf tenderness or erythema/warmth suggesting infectious joint, DVT, gout. She denies of any specific injuries. No recent travels or surgeries. Numbness and tingling sensation bilateral lower extremities for the past 2 months. She was seen here this past weekend diagnosed with hypomagnesia and hypokalemia from vomiting and was admitted for IV supplementation as she was symptomatic. She is currently on oral supplements. Continue vomiting 2-3 times per day. diagnosed with IBS currently following GI. She is scheduled to follow-up with GI for this continuous vomiting. Patient with good pulses distally. Dorsi pedis +2, posterior tibialis +2. No muscle weakness. No evidence suggesting cellulitis or vasculitis. Not concern for DVT. No evidence of infectious joint. Due to the radiculopathy type pain rechecked her electrolytes added a TSH, CRP and ESR. White blood count 3.5. Last visit was 3.8. Chemistry showed a potassium of 3.1 with normal kidney function. Magnesium 1.2. Normal TSH. CRP ESR within normal limits. Supplement magnesium sulfate IV 1 g and oral potassium 40 ml equivalent. She did vomit once here and was given Zofran. No abdominal tenderness on palpation. After supplementation her potassium stayed at 3.1 and magnesium increased to 1.9. She is currently on oral supplementation for these. She denies any drug use. She was told by her GI specialist in [place] that she may have radiculopathy. She is requesting something for the nerve pain. Did suggest potentially starting gabapentin 300 mg 3 times daily for the nerve pain. She will need to talk to her primary care physician about continuing as she we will need a taper dose to discontinue. Discussed continue monitoring her electrolytes. She has no headache, dizziness, visual changes, urinary symptoms, urinary retention, constipation, lower extremity weakness suggesting MS. She does not have muscle weakness suggesting Guillain-Tinsley. No loss of DTRs. Suggest follow-up your PCP in 2 to 3 days for reevaluation. She does have nausea medication at home. If any worsening symptoms return back to ED for further evaluation. Continue monitoring electrolytes. Patient needs further evaluation for this ongoing neuropathy. Impression Primary Impression: Neuropathy Additional Impressions: Hypomagnesemia Hypokalemia Disposition: 01 HOME, SELF-CARE Condition: Stable Departure-Patient Inst. Decision time for Depature: 20:07 Referrals: JENARO RAMIREZ MD (PCP/Family) Primary Care Physician Patient Instructions: Paresthesia (DC) Add. Discharge Instructions: Recommend follow-up your primary care physician to discuss today's visit. Recommend discussing continue of gabapentin. If any worsening symptoms return back to ED. Scripts Gabapentin (Neurontin) 300 Mg Capsule 300 MG PO TID, #21 CAP Prov: EILEEN TRINH 02/23/23 EILEEN TRINH Feb 23, 2023 17:12
[2023-02-23 17:27] LABS: BASOPHILS % (AUTO) 1 % (0-10); EOSINOPHILS % (AUTO) 1 % (0-10); HEMATOCRIT 35 % (35-52); HEMOGLOBIN 11.7 g/dL (11.5-16.0); LYMPHOCYTES # (AUTO) 1.6 10^3/uL (1.0-4.0); LYMPHOCYTES % (AUTO) 45 % (12-44); MEAN CORPUSCULAR HEMOGLOBIN 31 pg (25-34); MEAN CORPUSCULAR HGB CONC 33 g/dL (32-36); MEAN CORPUSCULAR VOLUME 94 fL (80-99); MEAN PLATELET VOLUME 9.6 fL (9.0-12.2); MONOCYTES # (AUTO) 0.4 10^3/uL (0.0-1.0); MONOCYTES % (AUTO) 12 % (0-12); NEUTROPHILS # (AUTO) 1.4 10^3/uL (1.8-7.8); NEUTROPHILS % (AUTO) 41 % (42-75); PLATELET COUNT 185 10^3/uL (130-400); WHITE BLOOD COUNT 3.5 10^3/uL (4.3-11.0)
[2023-02-23 17:53] LABS: ALBUMIN 2.5 GM/DL (3.2-4.5); BILIRUBIN,TOTAL 0.2 MG/DL (0.1-1.0); CALCIUM 7.5 MG/DL (8.5-10.1); CREATININE SERUM 0.61 MG/DL (0.60-1.30); MAGNESIUM 1.2 MG/DL (1.6-2.4); POTASSIUM 3.1 MMOL/L (3.6-5.0); TOTAL PROTEIN 4.3 GM/DL (6.4-8.2)
[2023-02-23] MEDS ORDERED: POTASSIUM CHLORIDE 20 MEQ TABLET PO ONE (18:15)
[2023-02-23] MEDS ORDERED: MAGNESIUM 1 GM/100 ML IVPB 100 ML IV ONE (18:15)
[2023-02-23] MEDS ORDERED: ONDANSETRON INJECTION 4 MG/2 ML (SDV) ONE (18:37)
[2023-02-23] MEDS ORDERED: ONDANSETRON INJECTION 4 MG/2 ML (SDV) IVP ONE (18:45)
[2023-02-23 20:06] LABS: MAGNESIUM 1.9 MG/DL (1.6-2.4); POTASSIUM 3.1 MMOL/L (3.6-5.0)
[2023-02-23] MEDS ORDERED: GABA300C PO (20:09)
[2023-02-23 20:14] VITALS: BP 118/69
== END 2023-02-23 20:14 | disposition home or self-care (01) ==
LOC: EDUNIT# 16:52 → ER 16:54
DX: G62.9 Polyneuropathy, unspecified (principal); E83.42 Hypomagnesemia; E87.6 Hypokalemia; Z28.310 Unvaccinated for COVID-19
CPT/HCPCS: 36415; 80053; 83735; 84132; 84443; 85025; 85652; 86141